=== PATIENT | male | born 1940 | race Caucasian/White ===

== ENCOUNTER 2017-12-09 08:45 | Day surgery (SDC) | payer MEDICARE ==
[2017-12-09 09:12] VITALS: RESP 20; TEMP 97.2
[2017-12-09 09:41] VITALS: BP 177/89; PULSE 66
--- NOTE | 2017-12-09 10:46 | US ---
EXAMINATION TYPE: US biopsy lymph node DATE OF EXAM: 12/09/2017 HISTORY: Right neck mass. FINDINGS: Maximal barrier technique was utilized. The skin overlying a suitable path to the patient' s mass was localized with ultrasound and the overlying skin prepped and draped. Ultrasound was utili zed with sterile technique. Lidocaine was used for local anesthesia. A skin tasia was made with a sc alpel. An 18-gauge needle was advanced under direct ultrasound guidance and core specimen obtained o f the mass. Specimen submitted in formalin to Pathology. Following the procedure, hemostasis achiev ed and the patient is discharged in stable condition without complication. IMPRESSION:STATUS POST ULTRASOUND GUIDED CORE BIOPSY OF right neck MASS, PATHOLOGY IS PENDING. THIS PROCEDURE IS PERFORMED BY THE UNDERSIGNED.
== END 2017-12-09 10:35 | disposition home or self-care (01) ==
LOC: RADPROMAIN 08:45
PROVIDERS: ATTEND Family Medicine
DX: C83.11 Mantle cell lymphoma, lymph nodes of head, face, and neck (principal); Z85.46 Personal history of malignant neoplasm of prostate; F17.210 Nicotine dependence, cigarettes, uncomplicated; Z92.3 Personal history of irradiation; I10 Essential (primary) hypertension; Z79.899 Other long term (current) drug therapy; Z82.49 Family history of ischemic heart disease and other diseases of the circulatory system
CPT/HCPCS: 38505; 76942; 88305; 88341; 88342

== ENCOUNTER 2019-03-26 20:40 | Inpatient (IN) | payer MEDICARE ==
--- NOTE | 2019-03-26 21:16 | XR ---
EXAMINATION TYPE: XR chest 1V portable DATE OF EXAM: 03/26/2019 COMPARISON: Today HISTORY: Short of breath TECHNIQUE: Single frontal view of the chest is obtained. FINDINGS: Heart size is normal. There is coarse interstitial density in the lungs. Thoracic aorta is atheromatous. There is no heart failure. Bony thorax is intact. There is right upper lobe chest tube in good position. No pneumothorax seen. IMPRESSION: COPD and pulmonary fibrosis. No change. No pneumothorax.
--- NOTE | 2019-03-26 21:17 | ED ---
General Adult HPI - General Chief complaint: Shortness of Breath Stated complaint: collapsed lung Time Seen by Provider: 03/26/19 20:44 Source: patient, family, EMS Mode of arrival: EMS Limitations: no limitations - History of Present Illness Initial comments: Dictation was produced using SetJam dictation software. please excuse any gr ammatical, word or spelling errors. Chief Complaint: 78-year-old male transferred from [facility] for pneumothorax. History of Present Illness: Patient was initially seen at [place] where he began having shortness of breath starting at 8 AM this morning. He also developed some chest pain. Upon initial arrival to [facility] emergency room he was found to be hypoxic. Placed on nonrebreather. X-ray was obtained showing large pneumothorax with concern for tension. Patient was given procedural sedation and chest tube was placed in the right chest. Patient has no complaints at this time. The ROS documented in this emergency department record has been reviewed and confirmed by me. Those systems with pertinent positive or negative responses have been documented in the HPI. All other systems are other negative and/or noncontributory. PHYSICAL EXAM: General Impression: Alert and oriented x3, not in acute distress HEENT: Normocephalic atraumatic, extra-ocular movements intact, pupils equal and reactive to light bilaterally, mucous membranes moist. Cardiovascular: Heart regular rate and rhythm, S1&S2 audible, no murmurs, rubs or gallops Chest: Lungs clear to auscultation bilaterally, no rhonchi, no wheeze, no rales Abdomen: Bowel sounds present, abdomen soft, non-tender, non-distended, no organomegaly Musculoskeletal: Pulses present and equal in all extremities, no peripheral edema Motor: no focal deficits noted Neurological: CN II-XII grossly intact, no focal motor or sensory deficits noted Skin: Intact with no visualized rashes Psych: Normal affect and mood Pleur-evac showed continuous leak. Tubing was assessed. There was a disconnection between the chest tube in the Pleur-evac tubing. ED course: 78-year-old male presents via transfer for pneumothorax. He had a chest tube thoracostomy performed at [place]. Vital signs upon arrival are within acceptable limits. Patient evaluated at bedside found to be stable medical condition. There appeared to be continuous leak to the Pleur-evac system. There was a disconnection between the chest tube and the Pleur-evac tubing. Equipment was changed for our [place] Pleur-evac. Rest of physical examination is benign. Chart reviewed from [place]. Patient to be admitted. Discussed patient case Dr. Miguel from [place] [facility] was went except admission.Chest x-ray at our facility was obtained showing right upper lobe chest tube in good position without any pneumothorax with good expansion of the lung. - Related Data Home Medications Medication Instructions Recorded Confirmed Lisinopril [Zestril] 20 mg PO BID 12/02/17 03/26/19 Ibrutinib [Imbruvica] 140 mg PO DAILY 03/26/19 03/26/19 amLODIPine [Norvasc] 5 mg PO DAILY 03/26/19 03/26/19 Allergies Allergy/AdvReac Type Severity Reaction Status Date / Time No Known Allergies Allergy Verified 03/26/19 21:20 Review of Systems ROS Statement: Those systems with pertinent positive or pertinent negative responses have been documented in the HPI. ROS Other: All systems not noted in ROS Statement are negative. 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 History of Any Multi-Drug Resistant Organisms: None Reported Past Surgical History: Hernia Repair Past Anesthesia/Blood Transfusion Reactions: No Reported Reaction Past Psychological History: No Psychological Hx Reported Smoking Status: Current every day smoker Past Alcohol Use History: Occasional Past Drug Use History: None Reported - Past Family History Mother Family Medical History: Cancer Additional Family Medical History / Comment(s): leukemia General Exam Limitations: no limitations Course Vital Signs 03/26/19 03/26/19 03/26/19 20:43 21:09 21:14 Temperature 97.8 F Pulse Rate 79 75 Respiratory 20 16 16 Rate Blood Pressure 159/88 153/83 O2 Sat by Pulse 100 99 Oximetry Disposition Clinical Impression: Pneumothorax Disposition: ADMITTED IP TO THIS HOSP Condition: Fair Referrals: Eleazar Gore DO [Primary Care Provider] - 1-2 days Decision Time: 21:24
[2019-03-26] MEDS ORDERED: NALOXONE 0.4 MG/ML 1 ML VIAL IV PRN (21:22)
[2019-03-26] MEDS ORDERED: ACETAMINOPHEN TAB 325 MG TAB PO PRN (21:22)
[2019-03-26] MEDS: SODIUM CHLORIDE 0.9% 1,000 ML IV SCH (21:29)
[2019-03-26] MEDS: MORPHINE SULFATE 4 MG/ML SYRINGE IV PRN (22:26)
--- NOTE | 2019-03-27 02:13 | P.HPIM ---
History of Present Illness H&P Date: 03/27/19 Patient is 78-year-old male with a PMH of hypertension, BPH, and active smoker who presented to the ED as a transfer from [place] for pneumothorax. The patient notes that he woke up earlier today at 8 AM and noticed some diffuse chest pain along with shortness of breath. The pain gradually worsened and he subsequently went to [place] ED at 3 PM, where he underwent an extensive evaluation and was found to have a large pneumothorax with concerns for tension pneumothorax on the chest x-ray. Chest tube was inserted and the patient was subsequently transferred to [place] ED. At time of interview, the patient notes that his chest pain and shortness of breath has resolved and he only has incisional pain at the site of the chest tube insertion. He further denied nausea, vomiting, fever, chills, headache, or dizziness earlier today or at time of the interview. The patient's chart from [place] was reviewed. EKG had revealed a normal sinus rhythm at 96 bpm. Laboratory evaluation had revealed a WBC count of 4, hemoglobin 12.9, platelets 129, troponin of 0.01, BNP 58, sodium 136, potassium 3.8, chloride 103, CO2 25, BUN 18, creatinine 1.0. CXR performed at this facility reviewed RUL chest tube in good position w/ no pneumothorax. Review of Systems Pertinent positives and negatives as discussed in HPI, a complete review of systems was performed and all other systems are negative. 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 History of Any Multi-Drug Resistant Organisms: None Reported Past Surgical History: Hernia Repair Past Anesthesia/Blood Transfusion Reactions: No Reported Reaction Past Psychological History: No Psychological Hx Reported Smoking Status: Current every day smoker Past Alcohol Use History: Occasional Past Drug Use History: None Reported - Past Family History Mother Family Medical History: Cancer Additional Family Medical History / Comment(s): leukemia Medications and Allergies Home Medications Medication Instructions Recorded Confirmed Type Lisinopril [Zestril] 20 mg PO BID 12/02/17 03/26/19 History Ibrutinib [Imbruvica] 140 mg PO DAILY 03/26/19 03/26/19 History amLODIPine [Norvasc] 5 mg PO DAILY 03/26/19 03/26/19 History Allergies Allergy/AdvReac Type Severity Reaction Status Date / Time No Known Allergies Allergy Verified 03/26/19 21:20 Physical Exam Vitals: Vital Signs Temp Pulse Pulse Resp BP BP Pulse Ox 03/26/19 22:16 97.3 F L 77 16 165/83 99 03/26/19 21:14 16 03/26/19 21:09 75 16 153/83 99 03/26/19 20:43 97.8 F 79 20 159/88 100 Intake and Output 03/26/19 03/26/19 03/27/19 14:59 22:59 06:59 Other: Weight 70.307 kg General: non toxic, no distress, appears at stated age, normal weight Derm: no unusual rashes/lesions no unusual ecchymoses, warm, dry Head: atraumatic, normocephalic, symmetric Eyes: EOMI, no lid lag, anicteric sclera, pupils equal round reactive to light ENT: Nose and ears atraumatic, no thrush, no pharyngeal erythema Neck: No thyromegaly, no cervical lymphadenopathy, trachea midline, supple Mouth: no lip lesion, mucus membranes moist Cardiovascular: S1S2 reg, no murmur, positive posterior tibial pulse bilateral, no edema, capillary refill less than 2 seconds Lungs: CTA bilateral, right sided chest tube in place, connected to pleur-evac, no rhonchi, no rales , no accessory muscle use Abdominal: soft, nontender to palpation, no guarding, no appreciable or ganomegaly, normal bowel sounds Ext: no gross muscle atrophy, muscle strength 5 out of 5 in all 4 extremities grossly, no contractures, Neuro: CN II-XI grossly intact, light touch intact all 4 extremities, finger to nose within normal limits, Psych: Alert, oriented, appropriate affect Assessment and Plan Plan: Right pneumothorax status post chest tube insertion, in setting of likely undiagnosed COPD -Repeat x-ray showing good expansion of the lung without pneumothorax -Continue with chest tube -Surgery consulted Chronic conditions: Hypertension, BPH -Continue with home meds DVT prophylaxis -Lovenox The patient is admitted with an anticipated more than 2 midnight stay for evaluation of pneumothorax. CODE STATUS:Full Code Discussed with: Patient, Family Anticipated discharge date: 03/29/[address]: Home A total of 35 minutes was spent on the care of this complex patient more than 50% of the time was spent in counseling and care coordination.
[2019-03-27 05:18] VITALS: BMI 22.2
[2019-03-27] MEDS: MORPHINE SULFATE 4 MG/ML SYRINGE IV PRN (07:15)
[2019-03-27] MEDS: ENOXAPARIN 40 MG/0.4 ML SYRINGE SQ SCH (08:35)
[2019-03-27] MEDS: LISINOPRIL 20 MG TAB PO SCH ×2 (08:35→20:31)
[2019-03-27] MEDS: amLODIPine 5 MG TAB PO SCH (08:35)
[2019-03-27] MEDS: Ibrutinib [Imbruvica] 140 MG PO SCH (08:36)
--- NOTE | 2019-03-27 12:05 | P.GSCN ---
History of Present Illness Consult date: 03/27/19 Reason for Consult: pneumothorax Requesting physician: Richie Singh History of present illness: This is a 78-year-old gentleman who follows on an outpatient basis with Dr. Eleazar Gore. He has a previous medical history of prostate cancer diagnosed in 2017 status post radiation, mantle cell lymphoma diagnosed in 2018 still actively receiving oral chemotherapy, hypertension, current tobacco dependence with 1 pack per day for 61 years with attempts to quit, and family history of cancer. Yesterday morning he began experiencing significant shortness of breath, throughout the day he also developed chest pain and presented to [place] emergency room for evaluation and treatment. His oxygen saturation was 70% and he was placed on a nonrebreather with some improvement in his symptoms. Chest x-ray was completed demonstrating a large right-sided pneumothorax with tension. A right pleural chest tube was placed by the emergency room physicians, follow-up x-ray demonstrated complete re-expansion of the lung, and the patient was transferred to [facility] for further evaluation and treatment. He denies any previous incidence of pneumothorax. He was admitted for further evaluation with consultation placed to Dr. Razo for management. 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 History of Any Multi-Drug Resistant Organisms: None Reported Past Surgical History: Hernia Repair Past Anesthesia/Blood Transfusion Reactions: No Reported Reaction Past Psychological History: No Psychological Hx Reported Smoking Status: Current every day smoker Past Alcohol Use History: Occasional Past Drug Use History: None Reported - Past Family History Mother Family Medical History: Cancer Additional Family Medical History / Comment(s): leukemia Medications and Allergies Home Medications Medication Instructions Recorded Confirmed Type Lisinopril [Zestril] 20 mg PO BID 12/02/17 03/26/19 History Ibrutinib [Imbruvica] 140 mg PO DAILY 03/26/19 03/26/19 History amLODIPine [Norvasc] 5 mg PO DAILY 03/26/19 03/26/19 History Allergies Allergy/AdvReac Type Severity Reaction Status Date / Time No Known Allergies Allergy Verified 03/26/19 21:20 Surgical - Exam Vital Signs Temp Pulse Resp BP Pulse Ox 97.8 F 79 20 159/88 100 03/26/19 20:43 03/26/19 20:43 03/26/19 20:43 03/26/19 20:43 03/26/19 20:43 - General well developed, well nourished, no distress, no pain - Eyes PERRL, normal ocular movement - ENT no hearing loss - Neck no masses, no bruits, trachea midline - Respiratory lungs sounds diminished bilaterally. Respirations even, nonlabored. Currently on 4 L nasal cannula with oxygen saturation 99%. Right pleural chest tube to continuous wall suction, no drainage present, no air leak present. - Cardiovascular S1, S2 present. Regular rate and rhythm. EKG shows sinus rhythm without ischemic changes. Palpable peripheral pulses bilaterally. No edema present. No calf pain or tenderness noted. - Abdomen Abdomen: soft, non tender, bowel sounds - Genitourinary deferred - Rectum deferred - Integumentary skin is warm and dry with evidence of good perfusion. - Neurologic normal coordination, normal sensation - Musculoskeletal normal posture - Psychiatric oriented to time, oriented to person, oriented to place, speech is normal, memory intact Results - Imaging Chest x-ray: report reviewed, image reviewed Assessment and Plan Assessment: 1. Spontaneous pneumothorax, first incidence 2. Mantle cell lymphoma diagnosed in 2018, still receiving oral chemotherapy 3. History of prostate cancer diagnosed in 2017 status post radiation 4. Hypertension 5. Current tobacco dependence 6. Family history of cancer Plan: The patient was seen and examined at the bedside. Chart/diagnostics were reviewed. The case was discussed this morning with Dr. Camilo. At this time we will maintain pleural chest tube to continuous wall suction, likely will remove from suction later this afternoon versus tomorrow morning. Once off suction for 24 hours with no recurrence of pneumothorax will discontinue pleural chest tube. Patient's risk for repeat pneumothorax discussed in detail with the patient , as well as surgical intervention possibility if pneumothorax recurs. Patient was counseled to quit smoking as tobacco dependence is a significant risk factor for pneumothorax. Incentive spirometry was ordered and should be encouraged. Continue medical management per primary care service. Thank you for this consult. We look forward to working with you in the care of your patient. Time with Patient: Greater than 30
[2019-03-28] MEDS: SODIUM CHLORIDE 0.9% 1,000 ML IV SCH (03:48)
--- NOTE | 2019-03-28 07:26 | XR ---
EXAMINATION TYPE: XR chest 2V DATE OF EXAM: 03/28/2019 COMPARISON: Chest x-ray from 2 days ago. HISTORY: Pneumothorax with right-sided chest tube. TECHNIQUE: Frontal and lateral views of the chest are obtained. FINDINGS: There is stable appearing right apical chest tube without measurable pneumothorax.. There are small to tiny bilateral pleural effusions on current study. No mediastinal shift. Cardiac silhoue tte size is stable and within normal limits with atherosclerotic thoracic aorta. Osseous structures a re intact. Background underlying chronic emphysematous change felt present. IMPRESSION: No measurable pneumothorax with right apical chest tube in place. Small to tiny bilatera l pleural effusions are present on current study. No new infiltrate is noted.
[2019-03-28] MEDS: Ibrutinib [Imbruvica] 140 MG PO SCH (07:34)
[2019-03-28] MEDS: ENOXAPARIN 40 MG/0.4 ML SYRINGE SQ SCH (07:34)
[2019-03-28] MEDS: LISINOPRIL 20 MG TAB PO SCH (07:34)
[2019-03-28] MEDS: amLODIPine 5 MG TAB PO SCH (07:34)
--- NOTE | 2019-03-28 09:51 | P.PN ---
Subjective Progress Note Date: 03/28/19 Principal diagnosis: Right sided spontaneous pneumothorax, first incidence. Previous medical history of prostate cancer status post radiation, mantle cell lymphoma with active oral chemotherapy, hypertension, current tobacco dependence, and family history of cancer. POD #2 placement of right pleural chest tube by the emergency room physicians at [facility] The patient is currently sitting up in bed in no acute distress. Denies pain or shortness of breath. Right pleural chest tube was placed to waterseal yesterday, no air leak is present, and chest x-ray this morning shows reexpansion of the lung. The patient has been ambulating to and from the bathroom. No new concerns. Objective - Vital Signs Vital signs: Vital Signs Temp 97.7 F 03/28/19 05:00 Pulse 70 03/28/19 05:00 Resp 20 03/28/19 05:00 BP 138/75 03/28/19 05:00 Pulse Ox 98 03/28/19 05:00 Intake & Output 03/27/19 03/28/19 03/28/19 18:59 06:59 18:59 Intake Total 240 70 Output Total 400 10 400 Balance -160 60 -400 Intake: Intake, IV Titration 70 Amount Sodium Chloride 0.9% 1, 70 000 ml @ 20 mls/hr IV . Q24H [facility] Rx#:[id number] Oral 240 Output: Chest Tube Drainage 10 Chest Tube Right Lateral 10 Chest Urine 400 400 Other: Voiding Method Toilet Toilet # Voids 3 1 1 - Constitutional General appearance: Present: cooperative, no acute distress - Respiratory Details: Lungs sounds diminished bilaterally. Respirations even, nonlabored. Currently on room air with oxygen saturation 95%. Able to achieve 1250 mL on his incentive spirometry. Right pleural chest tube to waterseal, no drainage present, no air leak present. - Cardiovascular Details: S1, S2 present. Regular rate and rhythm. Palpable peripheral pulses bilaterally. No edema present. No calf pain or tenderness noted. - Gastrointestinal Gastrointestinal Comment(s): Abdomen soft, nontender, nondistended. Active bowel sounds 4 quadrants. Tolerating diet. - Genitourinary Genitourinary Comment(s): Continues to void. - Integumentary Integumentary Comment(s): Skin is warm and dry with evidence of good perfusion. - Neurologic Neurologic: Present: CNII-XII intact - Musculoskeletal Musculoskeletal: Present: gait normal, strength equal bilaterally - Psychiatric Psychiatric: Present: A&O x's 3, appropriate affect, intact judgment & insight - Allied health notes Allied health notes reviewed: nursing - Imaging and Cardiology Chest x-ray: report reviewed, image reviewed Assessment and Plan Assessment: 1. Right-sided spontaneous pneumothorax, first incidence, status post right pleural chest tube placement by the emergency room physicians at [facility] 2. Mantle cell lymphoma diagnosed in 2018, still receiving oral chemotherapy 3. History of prostate cancer diagnosed in 2017 status post radiation 4. Hypertension 5. Current tobacco dependence 6. Family history of cancer Plan: 1. Right pleural chest tube was discontinued without incident. Patient tolerated well. Chest x-ray to be obtained in 2 hours. 2. If repeat chest x-ray is stable patient may be discharged home from our standpoint. Dressing should remain in place for 48 hours then patient may remove and shower daily. Discharge instructions were placed on the discharge plan as well as our contact information. 3. Recommended pain control with Tylenol alternating with Motrin. No narcotics necessary. 4. Patient instructed to continue using incentive spirometry. 5. Reinforced the need to quit smoking. Also discussed with his . 6. Please call us with any further questions. Time with Patient: Greater than 30
--- NOTE | 2019-03-28 12:38 | XR ---
EXAMINATION TYPE: XR chest 2V DATE OF EXAM: 03/28/2019 COMPARISON: Chest x-ray earlier today. HISTORY: Status post right-sided chest tube removal. TECHNIQUE: Frontal and lateral views of the chest are obtained. FINDINGS: There is persistent small to tiny right pleural effusion. No evidence of right-sided pneum othorax status post chest tube removal. Background chronic emphysematous change redemonstrated. The c ardiac silhouette size remains within normal limits with atherosclerotic thoracic aorta. The osseou s structures are intact. IMPRESSION: No significant pneumothorax after right-sided chest tube removal.
[2019-03-28 13:10] VITALS: BP 135/68; PULSE 54; RESP 18; TEMP 97.8
--- NOTE | 2019-03-28 17:06 | P.DS ---
Providers Date of admission: 03/26/19 21:23 Expected date of discharge: 03/28/19 Attending physician: Lisa Higgins MD Consults: 03/26/19 21:23 Consult Physician Routine Consulting Provider: Roldan Razo Consult Reason/Comments: pneumothorax Do you want consulting provider notified?: Yes Hospital Course: 78-year-old male with a PMH of hypertension, BPH, and active smoker who presented to the ED as a transfer from [place] for pneumothorax. When he woke up he noticed some diffuse chest pain along with shortness of breath. The pain gradually worsened and he subsequently went to [place] ED at 3 PM, where he underwent an extensive evaluation and was found to have a large pneumothorax with concerns for tension pneumothorax on the chest x-ray. Chest tube was inserted and the patient was subsequently transferred to [place] ED. When he arrived his chest pain and shortness of breath resolved and he only had incisional pain at the site of the chest tube insertion. He denied nausea, vomi ting, fever, chills, headache, or dizziness. EKG had revealed a normal sinus rhythm at 96 bpm. Laboratory evaluation had revealed a WBC count of 4, hemoglobin 12.9, platelets 129, troponin of 0.01, BNP 58, sodium 136, potassium 3.8, chloride 103, CO2 25, BUN 18, creatinine 1.0. CXR performed at this facility reviewed RUL chest tube in good position w/ no pneumothorax. Patient was evaluated and followed by cardiothoracic surgery. The pneumothorax was thought to be primarily secondary to smoking possibly emphysema. Patient was advised to quit smoking. He verbalized understanding. Today the chest tube was discontinued after remaining in place for approximately 2 days, follow-up chest x-ray did not reveal pneumothorax. Patient be discharged home in a stable condition. Time for discharge 35min Patient Condition at Discharge: Fair Plan - Discharge Summary New Discharge Prescriptions: Continue Lisinopril [Zestril] 20 mg PO BID amLODIPine [Norvasc] 5 mg PO DAILY Ibrutinib [Imbruvica] 140 mg PO DAILY Discharge Medication List Lisinopril [Zestril] 20 mg PO BID 12/02/17 [History] Ibrutinib [Imbruvica] 140 mg PO DAILY 03/26/19 [History] amLODIPine [Norvasc] 5 mg PO DAILY 03/26/19 [History] Follow up Appointment(s)/Referral(s): Maia Oliveros, NPC [Nurse Practitioner] - As Needed (may come in to office for suture removal 7-14 days if no one is able to remove at [place]) Rakan Gore MD [REFERRING] - 03/30/19 4:00 pm Patient Instructions/Handouts: Spontaneous Pneumothorax (DC) Activity/Diet/Wound Care/Special Instructions: Chest tube site: Keep covered for 48 hours ( morning). If dressing becomes saturated, reinforce until then. After 48 hours you may remove dressing and shower daily. If any drainage from site you may cover with dressing, otherwise leave open to air. Return to [place] for suture removal of sutures after 7-14 days. If unable to have sutures removed at [place], may return to cardiothoracic surgery office for removal. Any fever greater than 101F or infected looking drainage from the site should be reported to the cardiothoracic surgery office. May alternate ibuprofen and acetaminophen for pain. Any questions please call Maia Oliveros NP @ Discharge Disposition: HOME SELF-CARE
== END 2019-03-28 13:45 | disposition home or self-care (01) | DRG 200 ==
LOC: EC 20:40 → 3NMEDONC 21:23
PROVIDERS: ADMIT Internal Medicine; ATTEND Internal Medicine
DX: J93.83 Other pneumothorax (principal); C83.10 Mantle cell lymphoma, unspecified site; J43.9 Emphysema, unspecified; N40.0 Benign prostatic hyperplasia without lower urinary tract symptoms; I10 Essential (primary) hypertension; F17.200 Nicotine dependence, unspecified, uncomplicated; M19.90 Unspecified osteoarthritis, unspecified site; Z79.899 Other long term (current) drug therapy; Z80.6 Family history of leukemia; Z92.3 Personal history of irradiation; Z85.46 Personal history of malignant neoplasm of prostate; Z98.890 Other specified postprocedural states
CPT/HCPCS: 71045; 71046; 99285

== ENCOUNTER 2020-04-04 21:37 | Inpatient (IN) | payer MEDICARE ==
--- NOTE | 2020-04-04 21:54 | ED ---
General Adult HPI - General Chief complaint: Recheck/Abnormal Lab/Rx Stated complaint: Spontaneous pneumothorax Time Seen by Provider: 04/04/20 21:44 Source: patient, EMS, RN notes reviewed Mode of arrival: EMS Limitations: no limitations - History of Present Illness Initial comments: Dictation was produced using [employer] dictation software. please excuse any grammatical, word or spelling errors. This patient was cared for during a federal and state declared state of emergency secondary to Covid 19 Chief Complaint: 79-year-old male transferred from [place] for spontaneous pneumothorax. History of Present Illness: 79-year-old male he has had multiple pneumothoraces in the past. Patient states that he went to the emergency department [place] for acute onset shortness of breath. He was evaluated there is found to have right-sided pneumothorax. Patient had chest tube placed. Symptoms improved dramatically after the chest tube was placed. He was sent here for further care. One year ago patient had a similar presentation where he had a spontaneous pneumothorax and required chest tube thoracostomy. He was sent here to emergency department where he was seen by cardiothoracic surgery. The ROS documented in this emergency department record has been reviewed and confirmed by me. Those systems with pertinent positive or negative responses have been documented in the HPI. All other systems are other negative and/or noncontributory. PHYSICAL EXAM: General Impression: Alert and oriented x3, not in acute distress HEENT: Normocephalic atraumatic, extra-ocular movements intact, pupils equal and reactive to light bilaterally, mucous membranes moist. Cardiovascular: Heart regular rate and rhythm Chest: Able to complete full sentences, no retractions, no tachypnea, bilateral breath sounds, chest tube in place with clear dry and intact dressing Pleur-evac: No obvious leak Abdomen: abdomen soft, non-tender, non-distended, no organomegaly Musculoskeletal: Pulses present and equal in all extremities, no peripheral edema Motor: no focal deficits noted Neurological: CN II-XII grossly intact, no focal motor or sensory deficits noted Skin: Intact with no visualized rashes Psych: Normal affect and mood ED course: 79-year-old male past medical history of record pneumothoraces presents with right-sided spontaneous pneumothorax. Vital signs upon arrival are within acceptable limits. Patient's well-appearing. Chest tube appears to be in good working condition. Discussed patient case with Dr. Higgins who is one except patient's care. Cardiothoracic surgery will be consulted again. X-ray was performed here in our emergency room for reconfirmation of chest tube placement. Chest appears to be in place. There is good aeration of the lung with residual pneumothorax. Patient placed wall suction. he'll be admitted. - Related Data Home Medications Medication Instructions Recorded Confirmed lisinopriL [Zestril] 20 mg PO BID 12/02/17 03/26/19 Ibrutinib [Imbruvica] 140 mg PO DAILY 03/26/19 03/26/19 amLODIPine [Norvasc] 5 mg PO DAILY 03/26/19 03/26/19 Allergies Allergy/AdvReac Type Severity Reaction Status Date / Time No Known Allergies Allergy Verified 04/04/20 21:49 Review of Systems ROS Statement: Those systems with pertinent positive or pertinent negative responses have been documented in the HPI. ROS Other: All systems not noted in ROS Statement are negative. 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 History of Any Multi-Drug Resistant Organisms: None Reported Past Surgical History: Hernia Repair Past Anesthesia/Blood Transfusion Reactions: No Reported Reaction Past Psychological History: No Psychological Hx Reported Smoking Status: Former smoker Past Alcohol Use History: Occasional Past Drug Use History: None Reported - Past Family History Mother Family Medical History: Cancer Additional Family Medical History / Comment(s): leukemia General Exam Limitations: no limitations Course Vital Signs 04/04/20 21:44 Temperature 98.1 F Pulse Rate 72 Respiratory 18 Rate Blood Pressure 152/99 O2 Sat by Pulse 98 Oximetry Disposition Clinical Impression: Pneumothorax Disposition: ADMITTED IP TO THIS HOSP Condition: Fair Referrals: Rakan Gore MD [Primary Care Provider] - 1-2 days Decision Time: 22:04
--- NOTE | 2020-04-04 22:09 | XR ---
EXAMINATION TYPE: XR chest 1V portable DATE OF EXAM: 04/04/2020 COMPARISON: 03/28/2019 HISTORY: Chest tube placement TECHNIQUE: FINDINGS: There is a right-sided chest tube with the tip over the medial aspect right upper lobe. The re is a small right-sided pneumothorax of approximately 15%. This is seen along the right lateral gt st wall and right lung apex. There is no heart failure. Heart size is normal. Thoracic aorta is ather omatous. There is minimal atelectasis right lung base. There are no hilar masses. IMPRESSION: Small right-sided pneumothorax appears new compared to old exam. No evidence of tension.
[2020-04-04] MEDS ORDERED: IPRATROPIUM-ALBUTEROL 3 ML NEB INHALATION PRN (23:19)
--- NOTE | 2020-04-05 01:07 | P.HPIM ---
History of Present Illness H&P Date: 04/04/20 The patient is a 79-year-old male with a PMH of tobacco abuse, hypertension, and BPH who was sent to the emergency room as a transfer from [place] where he had presented earlier today with complaints of sudden onset of right-sided chest pain and shortness of breath. The patient reports that he was in his usual state of health until around 4 PM when he suddenly developed sharp and pleuritic right-sided chest pain with associated shortness of breath. He reports sitting on a couch watching television at the time. He meet activated EMS who took him to [facility] where a chest x-ray revealed a large right-sided pneumothorax with mild mediastinal shift to the left. Right-sided chest tube was inserted with a repeat chest x-ray showing minor residual pneumothorax and no mediastinal shift. Laboratory evaluation had revealed a WBC count of 3.5, hemoglobin 11.3, platelets 206, sodium 133, potassium 3.9, chloride 103, CO2 27, BUN 12, creatinine 1.3, and glucose 127. The patient was transferred to [place] emergency room and is being admitted to the medicine service for further management of spontaneous pneumothorax. At time of interview, he reported minimal right-sided pleuritic chest discomfort, significantly improved immediately after chest tube placement. Denied shortness of breath, nausea, vomiting, fever, chills, or cough. Denied abdominal pain. Review of Systems Pertinent positives and negatives as discussed in HPI, a complete review of systems was performed and all other systems are negative. 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 History of Any Multi-Drug Resistant Organisms: None Reported Past Surgical History: Hernia Repair Past Anesthesia/Blood Transfusion Reactions: No Reported Reaction Past Psychological History: No Psychological Hx Reported Smoking Status: Former smoker Past Alcohol Use History: Occasional Past Drug Use History: None Reported - Past Family History Mother Family Medical History: Cancer Additional Family Medical History / Comment(s): leukemia Medications and Allergies Home Medications Medication Instructions Recorded Confirmed Type lisinopriL [Zestril] 20 mg PO BID 12/02/17 04/04/20 History Allergies Allergy/AdvReac Type Severity Reaction Status Date / Time No Known Allergies Allergy Verified 04/04/20 22:57 Physical Exam Vitals: Vital Signs Temp Pulse Resp BP Pulse Ox 04/04/20 23:45 74 18 138/83 99 04/04/20 22:49 20 04/04/20 21:44 98.1 F 72 18 152/99 98 Intake and Output 04/04/20 04/04/20 04/05/20 14:59 22:59 06:59 Other: Weight 68.492 kg General: non toxic, no distress, appears at stated age, normal weight Derm: no unusual rashes/lesions no unusual ecchymoses, warm, dry Head: atraumatic, normocephalic, symmetric Eyes: EOMI, no lid lag, anicteric sclera, pupils equal round reactive to light ENT: Nose and ears atraumatic, no thrush, no pharyngeal erythema Neck: No thyromegaly, no cervical lymphadenopathy, trachea midline, supple Mouth: no lip lesion, mucus membranes moist Cardiovascular: S1S2 reg, no murmur, positive posterior tibial pulse bilateral, no edema, capillary refill less than 2 seconds Lungs: CTA bilateral, no rhonchi, no rales , no accessory muscle use, right- sided chest wall and place attached to waterseal Abdominal: soft, nontender to palpation, no guarding, no appreciable organomegaly, normal bowel sounds Ext: no gross muscle atrophy, muscle strength 5 out of 5 in all 4 extremities grossly, no contractures, Neuro: CN II-XI grossly intact, light touch intact all 4 extremities, finger to nose within normal limits, Psych: Alert, oriented, appropriate affect Assessment and Plan Plan: Spontaneous right-sided thorax -Surgery consulted -Chest x-ray at [place] revealed re-expansion of lung -Continue with chest tube Hypertension -Continue with home med lisinopril Tobacco abuse -Advised on the importance of cessation Elevated creatinine -Monitor BMP DVT prophylaxis -Heparin subq The patient is admitted with an anticipated greater than 2 midnight stay for evaluation of spontaneous pneumothorax CODE STATUS: Full Code Discussed with: Patient Anticipated discharge date: 04/[address]: Home A total of 40 minutes was spent on the care of this complex patient more than 50% of the time was spent in counseling and care coordination.
[2020-04-05 07:10] LABS: HCT 30.5 % (39.0-53.0); MCH 31.2 pg (25.0-35.0); MCHC 32.7 g/dL (31.0-37.0); MCV 95.5 fL (80.0-100.0); Mean Platelet Volume 8.2; Platelet Count 135 k/uL (150-450); RBC 3.19 m/uL (4.30-5.90); RDW 14.4 % (11.5-15.5); WBC 3.6 k/uL (3.8-10.6)
[2020-04-05 07:23] LABS: African American GFR (CKD) >90 (>60 ml/min/1.73 sqM); Anion Gap 6 mmol/L; Blood Urea Nitrogen 14 mg/dL (9-20); Calcium 8.8 mg/dL (8.4-10.2); Carbon Dioxide 26 mmol/L (22-30); Chloride 103 mmol/L (98-107); Glucose 107 mg/dL (74-99); Non-African American GFR(CKD) 79 (>60 ml/min/1.73 sqM); Sodium 135 mmol/L (137-145)
--- NOTE | 2020-04-05 08:26 | XR ---
EXAMINATION TYPE: XR chest 1V portable DATE OF EXAM: 04/05/2020 HISTORY: Follow-up pneumothorax COMPARISON: 04/04/2020 TECHNIQUE: Single view of the chest is submitted. FINDINGS: Right-sided chest tube is unchanged in position. Right apical pneumothorax persists and appears sligh tly smaller in size and is estimated at approximately 10%. The heart is stable. Hilar and mediastinal structures are within normal limits. Degenerative changes are seen of the dorsal spine. IMPRESSION: 1. Right-sided chest tube is unchanged in position. Right apical pneumothorax persists and appears s lightly smaller in size and is estimated at approximately 10%.
[2020-04-05] MEDS ORDERED: RX INFO: IV CONTRAST WAS GIVEN 1 EACH MISC MISCELLANE PRN (08:50)
[2020-04-05] MEDS: HYDROcodone/APAP 5-325MG 1 EACH TAB PO PRN ×3 (09:14→20:22)
[2020-04-05] MEDS: lisinopriL 20 MG TAB PO SCH ×2 (09:16→20:24)
[2020-04-05] MEDS: HEPARIN SODIUM,PORCINE 5,000 UNIT/ML 1 ML VIAL SQ SCH ×2 (09:17→15:40)
--- NOTE | 2020-04-05 10:33 | P.PN ---
Subjective Progress Note Date: 04/05/20 Patient is doing fairly well today. He is complaining of soreness at the site of the chest tube. Repeat chest x-ray showed residual pneumothorax. Objective - Vital Signs Vital signs: Vital Signs Temp 98 F 04/05/20 04:12 Pulse 70 04/05/20 04:12 Resp 18 04/05/20 04:12 BP 122/74 04/05/20 04:12 Pulse Ox 98 04/05/20 04:12 Intake & Output 04/04/20 04/05/20 04/05/20 18:59 06:59 18:59 Intake Total 0 Output Total 0 Balance 0 Weight 68.492 kg Intake: Oral 0 Output: Chest Tube Drainage 0 Right Mid-Axillary Chest 0 Other: Voiding Method Toilet # Bowel Movements 0 # Emeses 0 - Exam General: The patient is awake and alert, in no distress Eye: there is normal conjunctiva bilaterally. Neck: The neck is supple, there is no JVD. Cardiovascular: Normal S1-S2, no S3-S4, no murmurs. Respiratory: Lungs clear to auscultation bilaterally Gastrointestinal: Abdomen is soft, nontender Musculoskeletal: There is no pedal edema. Neurological:. Speech is normal. Skin: Skin is warm and dry - Labs CBC & Chem 7: 04/05/20 06:40 04/05/20 06:40 Labs: Abnormal Lab Results - Last 24 Hours (Table) 04/05/20 04/05/20 Range/Units 06:40 06:40 WBC 3.6 L (3.8-10.6) k/uL RBC 3.19 L (4.30-5.90) m/uL Hgb 10.0 L (13.0-17.5) gm/dL Hct 30.5 L (39.0-53.0) % Plt Count 135 L (150-450) k/uL Sodium 135 L (137-145) mmol/L Glucose 107 H (74-99) mg/dL Assessment and Plan Assessment: This is a 79-year-old male with past medical history noted below who presented to the emergency room with worsening right-sided chest pain and shortness of breath. Patient was evaluated at [place] [facility] and transferred to our hospital for admission for further management of his medical problems noted below. Spontaneous right-sided thorax, third episode since last year. -Status post chest tube insertion -Thoracic surgery consulted and following closely, appreciate recommendations Hypertension -Continue with home med lisinopril Tobacco abuse -Counseled on the importance of cessation during this admission Elevated creatinine -Monitor BMP DVT prophylaxis -Heparin subq Abnormal for pain control.
--- NOTE | 2020-04-05 11:00 | CT ---
EXAMINATION TYPE: CT chest w con DATE OF EXAM: 04/05/2020 COMPARISON: None HISTORY: Assess for blebs CT DLP: 221.5 mGycm, Automated exposure control for dose reduction was used. CONTRAST: Performed injected with 100 mL of Isovue 300. TECHNIQUE: Axial images were obtained at 5 mm thick sections. Reconstructed images are reviewed on [employer] computer in the coronal plane. FINDINGS: Portion of the thyroid visualized is normal. No suspicious lung nodules or focal infiltrates are present. Moderately large apical blebs appear to be present especially at the right apex. Tiny right apical pn eumothorax is also present. Multiple emphysematous bulla are present throughout the lung bliss. Ther e is a small right-sided pneumothorax present. Chest tube is at the anterior right lung base. Small r ight pleural fluid collection is present. Some compressive atelectasis is likely at the right lung ba se. No enlarged mediastinal or hilar adenopathy is evident. The ascending aorta diameter at the level o f the main pulmonary artery is 3.3 cm. The main pulmonary artery diameter at the bifurcation is 2.[address] sections are obtained through the upper abdomen. Abdomen is essentially unremarkable. IMPRESSIONS: 1. Tiny right pneumothorax. Chest tube is at the right anterior lung base. 2. Emphysematous changes present bilaterally. Multiple blebs are present.
--- NOTE | 2020-04-05 12:05 | P.GSCN ---
<Maia Oliveros - Last Filed: 04/05/20 12:04> History of Present Illness Consult date: 04/05/20 Reason for Consult: Recurrent right-sided pneumothorax Requesting physician: Richie Singh History of present illness: This is a 79-year-old gentleman who follows on an outpatient basis with Dr. Eleazar Gore. 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 We saw this gentleman a year ago upon presentation from [place] emergency room for shortness of breath with subsequent right-sided pneumothorax with tension. Right thoracostomy tube was placed at that time. The emergency room physicians, follow chest x-ray demonstrated complete reexpansion of the lung, and chest tube was removed 2 days later. Patient was discharged home with plans for possible surgical intervention in the future should his pneumothorax recur. Yesterday he presented to [facility] again with complaints of shortness of breath. Chest x-ray was completed demonstrating recurrence of her right-sided pneumothorax and a chest tube was placed by the emergency room physicians. He was transferred to [facility] for further evaluation and treatment by cardiothoracic surgery. The patient does state this is his third pneumothorax. 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 , mantle cell lymphoma diagnosed in 2017 on active chemotherapy; right-sided spontaneous pneumothorax in March 2019 as well as September 2019 History of Any Multi-Drug Resistant Organisms: None Reported Past Surgical History: Hernia Repair Past Anesthesia/Blood Transfusion Reactions: No Reported Reaction Past Psychological History: No Psychological Hx Reported Smoking Status: Former smoker Past Alcohol Use History: Occasional Past Drug Use History: None Reported - Past Family History Mother Family Medical History: Cancer Additional Family Medical History / Comment(s): leukemia Medications and Allergies Home Medications Medication Instructions Recorded Confirmed Type lisinopriL [Zestril] 20 mg PO BID 12/02/17 04/04/20 History Allergies Allergy/AdvReac Type Severity Reaction Status Date / Time No Known Allergies Allergy Verified 04/04/20 22:57 Surgical - Exam Vital Signs Temp Pulse Resp BP Pulse Ox 98.1 F 72 18 152/99 98 04/04/20 21:44 04/04/20 21:44 04/04/20 21:44 04/04/20 21:44 04/04/20 21:44 - General well developed, well nourished, no distress, no pain - Eyes normal ocular movement - ENT no hearing loss - Neck no masses, no bruits, trachea midline - Respiratory Lungs sounds diminished bilaterally. Respirations even, nonlabored. Currently on 2 L nasal cannula with oxygen saturation 98%. Right-sided pleural chest tube present to continuous wall suction, no drainage present, positive continuous air leak present - Cardiovascular S1, S2 present. Regular rate and rhythm. Palpable peripheral pulses bilaterally. No edema present. No calf pain or tenderness noted. - Abdomen Abdomen: soft, non tender, bowel sounds - Genitourinary Deferred - Rectum Deferred - Integumentary no rash, no growths - Neurologic normal coordination, normal sensation - Musculoskeletal normal posture - Psychiatric oriented to time, oriented to person, oriented to place, speech is normal, m little rock intact Results - Labs 04/05/20 06:40 04/05/20 06:40 Abnormal Lab Results - Last 24 Hours (Table) 04/05/20 04/05/20 Range/Units 06:40 06:40 WBC 3.6 L (3.8-10.6) k/uL RBC 3.19 L (4.30-5.90) m/uL Hgb 10.0 L (13.0-17.5) gm/dL Hct 30.5 L (39.0-53.0) % Plt Count 135 L (150-450) k/uL Sodium 135 L (137-145) mmol/L Glucose 107 H (74-99) mg/dL Diabetes panel 04/05/20 Range/Units 06:40 Sodium 135 L (137-145) mmol/L Potassium 4.0 (3.5-5.1) mmol/L Chloride 103 (98-107) mmol/L Carbon Dioxide 26 (22-30) mmol/L BUN 14 (9-20) mg/dL Creatinine 0.93 (0.66-1.25) mg/dL Glucose 107 H (74-99) mg/dL Calcium 8.8 (8.4-10.2) mg/dL Calcium panel 04/05/20 Range/Units 06:40 Calcium 8.8 (8.4-10.2) mg/dL Pituitary panel 04/05/20 Range/Units 06:40 Sodium 135 L (137-145) mmol/L Potassium 4.0 (3.5-5.1) mmol/L Chloride 103 (98-107) mmol/L Carbon Dioxide 26 (22-30) mmol/L BUN 14 (9-20) mg/dL Creatinine 0.93 (0.66-1.25) mg/dL Glucose 107 H (74-99) mg/dL Calcium 8.8 (8.4-10.2) mg/dL Adrenal panel 04/05/20 Range/Units 06:40 Sodium 135 L (137-145) mmol/L Potassium 4.0 (3.5-5.1) mmol/L Chloride 103 (98-107) mmol/L Carbon Dioxide 26 (22-30) mmol/L BUN 14 (9-20) mg/dL Creatinine 0.93 (0.66-1.25) mg/dL Glucose 107 H (74-99) mg/dL Calcium 8.8 (8.4-10.2) mg/dL - Imaging Chest x-ray: report reviewed, image reviewed Assessment and Plan Assessment: 1. Recurrent right-sided spontaneous pneumothorax 2. History of prostate cancer diagnosed in 2017 status post radiation 3. 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 Hypertension 5. Previous tobacco dependence, quit March 2019 6. Family history of cancer Plan: The patient was seen and examined at the bedside with Dr. Rodney. Chart/diagnostics were reviewed. We will send the patient for computed tomography scan of the chest today to evaluate for blebs. Chest tube is still actively leaking. Slight apical pneumothorax remains on chest x-ray. We did discuss with the patient surgical intervention including possible blebectomy if present, as well as mechanical pleurodesis. As this is his third right-sided sp ontaneous pneumothorax surgery is the recommendation, the patient understands and is agreeable. We will review his computed tomography scan once this completed, timing of surgery to be determined but likely early next week. Wean O2 as tolerated. Increase activity as tolerated. Medical management of the comorbidities per primary care service. More recommendations to follow. Thank you for this consult. Time with Patient: Greater than 30 <Reymundo Rodney - Last Filed: 04/08/20 14:43> Surgical - Exam Vital Signs Temp Pulse Resp BP Pulse Ox 98.1 F 72 18 152/99 98 04/04/20 21:44 04/04/20 21:44 04/04/20 21:44 04/04/20 21:44 04/04/20 21:44 Results - Labs 04/08/20 07:36 04/08/20 07:36 Abnormal Lab Results - Last 24 Hours (Table) 04/08/20 Range/Units 07:36 WBC 2.0 L (3.8-10.6) k/uL RBC 3.04 L (4.30-5.90) m/uL Hgb 9.7 L (13.0-17.5) gm/dL Hct 29.1 L (39.0-53.0) % Plt Count 146 L (150-450) k/uL Neutrophils # (Manual) 1.24 L (1.3-7.7) k/uL Lymphocytes # (Manual) 0.24 L (1.0-4.8) k/uL Diabetes panel 04/08/20 Range/Units 07:36 Sodium 138 (137-145) mmol/L Potassium 4.3 (3.5-5.1) mmol/L Chloride 103 (98-107) mmol/L Carbon Dioxide 30 (22-30) mmol/L BUN 11 (9-20) mg/dL Creatinine 0.75 (0.66-1.25) mg/dL Glucose 91 (74-99) mg/dL Calcium 9.1 (8.4-10.2) mg/dL Calcium panel 04/08/20 Range/Units 07:36 Calcium 9.1 (8.4-10.2) mg/dL Pituitary panel 04/08/20 Range/Units 07:36 Sodium 138 (137-145) mmol/L Potassium 4.3 (3.5-5.1) mmol/L Chloride 103 (98-107) mmol/L Carbon Dioxide 30 (22-30) mmol/L BUN 11 (9-20) mg/dL Creatinine 0.75 (0.66-1.25) mg/dL Glucose 91 (74-99) mg/dL Calcium 9.1 (8.4-10.2) mg/dL Adrenal panel 04/08/20 Range/Units 07:36 Sodium 138 (137-145) mmol/L Potassium 4.3 (3.5-5.1) mmol/L Chloride 103 (98-107) mmol/L Carbon Dioxide 30 (22-30) mmol/L BUN 11 (9-20) mg/dL Creatinine 0.75 (0.66-1.25) mg/dL Glucose 91 (74-99) mg/dL Calcium 9.1 (8.4-10.2) mg/dL Assessment and Plan Plan: The patient was seen and examined. History and physical findings were verified. I agree with the assessment and plan. The patient is a 79-year-old male who presents to the hospital with his third episode of right-sided spontaneous pneumothorax. The previous 2 episodes were treated with chest tube only. A chest tube has again been placed by the emergency department and there is evidence of air leak. We will obtain a computed tomography scan of the chest for further evaluation. Since this is his third episode, we did discuss the possibility of surgical intervention. The risks, benefits, and alternatives to right VATS with wedge resection and pleurodesis were discussed with the patient. All his questions answered. At this point he would like to consider his options, but we will present him with additional recommendations once remainder of his workup is done.
[2020-04-06] MEDS: HEPARIN SODIUM,PORCINE 5,000 UNIT/ML 1 ML VIAL SQ SCH ×4 (01:08→23:23)
[2020-04-06] MEDS: HYDROcodone/APAP 5-325MG 1 EACH TAB PO PRN ×3 (01:08→19:57)
[2020-04-06 08:07] LABS: HGB 9.9 gm/dL (13.0-17.5); MCH 30.5 pg (25.0-35.0); MCHC 31.9 g/dL (31.0-37.0); MCV 95.7 fL (80.0-100.0); Platelet Count 136 k/uL (150-450); RBC 3.24 m/uL (4.30-5.90); RDW 14.3 % (11.5-15.5); WBC 2.4 k/uL (3.8-10.6)
[2020-04-06 08:13] LABS: African American GFR (CKD) >90 (>60 ml/min/1.73 sqM); Anion Gap 6 mmol/L; Blood Urea Nitrogen 13 mg/dL (9-20); Carbon Dioxide 27 mmol/L (22-30); Chloride 102 mmol/L (98-107); Glucose 92 mg/dL (74-99); Non-African American GFR(CKD) 87 (>60 ml/min/1.73 sqM); Potassium 4.5 mmol/L (3.5-5.1); Sodium 135 mmol/L (137-145)
[2020-04-06] MEDS: lisinopriL 20 MG TAB PO SCH ×2 (08:32→20:28)
[2020-04-06 08:52] LABS: Anisocytosis (M) Present; Eosinophils # (M) 0.24 k/uL (0-0.7); Lymphocytes # (M) 0.22 k/uL (1.0-4.8); Monocytes # (M) 0.26 k/uL (0-1.0); Neutrophils # (M) 1.68 k/uL (1.3-7.7); Neutrophils % (M) 70 %; Nucleated Red Blood Cells 0 /100 WBC (0-0); Total Cells Counted 100
--- NOTE | 2020-04-06 10:06 | P.PN ---
Subjective Progress Note Date: 04/06/20 Principal diagnosis: Recurrent right-sided spontaneous pneumothorax. Previous medical history of spontaneous pneumothorax in March 2019 and September 2019, prostate cancer status post radiation, mantle cell lymphoma status post radiation, hypertension, previous tobacco dependence, and family history of cancer. Patient is currently sitting up in bed on the medical oncology unit in no acute distress. States pain from chest tube is well-controlled on current medication regimen, denies shortness of breath. Right pleural chest tube remains to continuous wall suction with minimal output, air leak present but less than yesterday, mostly with expiration and coughing. No new concerns. Objective - Vital Signs Vital signs: Vital Signs Temp 98.0 F 04/06/20 05:02 Pulse 64 04/06/20 05:02 Resp 17 04/06/20 05:02 BP 118/69 04/06/20 05:02 Pulse Ox 98 04/06/20 05:02 Intake & Output 04/05/20 04/06/20 04/06/20 18:59 06:59 18:59 Intake Total 620 200 Output Total 0 0 0 Balance 620 200 0 Intake: Oral 620 200 Output: Chest Tube Drainage 0 0 0 Right Mid-Axillary Chest 0 0 0 Other: Voiding Method Toilet Toilet Toilet # Voids 3 0 # Bowel Movements 0 0 # [place] 0 - Constitutional General appearance: Present: cooperative, no acute distress - Respiratory Details: Lungs sounds diminished bilaterally, coarse on the right side. Respirations ev en, nonlabored. Currently on 2 L nasal cannula with oxygen saturation 98%. Able to achieve 3422-2684 mL on his incentive spirometry. Right-sided pleural chest tube present to continuous wall suction, minimal thin serosanguineous drainage present, air leak present - Cardiovascular Details: S1, S2 present. Regular rate and rhythm. Palpable peripheral pulses bilaterally. No edema present. No calf pain or tenderness noted. - Gastrointestinal Gastrointestinal Comment(s): Abdomen soft, nontender, nondistended. Active bowel sounds present 4 quadrants. Tolerating diet. - Genitourinary Genitourinary Comment(s): Continues to void - Integumentary Integumentary Comment(s): Skin is warm and dry with evidence of good perfusion. - Neurologic Neurologic: Present: CNII-XII intact - Musculoskeletal Musculoskeletal: Present: gait normal, strength equal bilaterally - Psychiatric Psychiatric: Present: A&O x's 3, appropriate affect, intact judgment & insight - Allied health notes Allied health notes reviewed: nursing - Labs CBC & Chem 7: 04/06/20 07:10 04/06/20 07:10 Labs: Abnormal Lab Results - Last 24 Hours (Table) 04/06/20 04/06/20 Range/Units 07:10 07:10 WBC 2.4 L (3.8-10.6) k/uL RBC 3.24 L (4.30-5.90) m/uL Hgb 9.9 L (13.0-17.5) gm/dL Hct 31.0 L (39.0-53.0) % Plt Count 136 L (150-450) k/uL Lymphocytes # (Manual) 0.22 L (1.0-4.8) k/uL Sodium 135 L (137-145) mmol/L - Imaging and Cardiology CT scan - chest: report reviewed, image reviewed Assessment and Plan Assessment: 1. Recurrent right-sided spontaneous pneumothorax, status post pleural chest tube placement by the emergency room physicians at [facility] 2. History of prostate cancer diagnosed in 2017 status post radiation 3. 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 Hypertension 5. Previous tobacco dependence, quit March 2019 6. Family history of cancer Plan: 1. Continue pleural chest tube to continuous wall suction. Will monitor for resolution of air leak 2. Computed tomography scan reviewed. Will repeat chest x-ray tomorrow 3. Plan is for video-assisted thoracoscopic surgery, possible blebectomy, mechanical pleurodesis, timing to be determined but likely early in the week. 4. Wean O2 as tolerated. Encourage continued incentive spirometry use 5. Increase activity as tolerated 6. Continue pain control with current medication regimen 7. Medical management of other comorbidities per primary care service 8. More recommendations to follow Time with Patient: Greater than 30
--- NOTE | 2020-04-06 10:46 | P.PN ---
Subjective Progress Note Date: 04/06/20 Patient is doing fairly well today. Pain is well controlled. No shortness of breath. Objective - Vital Signs Vital signs: Vital Signs Temp 98.0 F 04/06/20 05:02 Pulse 64 04/06/20 05:02 Resp 17 04/06/20 05:02 BP 118/69 04/06/20 05:02 Pulse Ox 98 04/06/20 05:02 Intake & Output 04/05/20 04/06/20 04/06/20 18:59 06:59 18:59 Intake Total 620 200 Output Total 0 0 0 Balance 620 200 0 Intake: Oral 620 200 Output: Chest Tube Drainage 0 0 0 Right Mid-Axillary Chest 0 0 0 Other: Voiding Method Toilet Toilet Toilet # Voids 3 0 # Bowel Movements 0 0 # [place] 0 - Exam General: The patient is awake and alert, in no distress Eye: there is normal conjunctiva bilaterally. Neck: The neck is supple, there is no JVD. Cardiovascular: Normal S1-S2, no S3-S4, no murmurs. Respiratory: Lungs clear to auscultation bilaterally Gastrointestinal: Abdomen is soft, nontender Musculoskeletal: There is no pedal edema. Neurological:. Speech is normal. Skin: Skin is warm and dry - Labs CBC & Chem 7: 04/06/20 07:10 04/06/20 07:10 Labs: Abnormal Lab Results - Last 24 Hours (Table) 04/06/20 04/06/20 Range/Units 07:10 07:10 WBC 2.4 L (3.8-10.6) k/uL RBC 3.24 L (4.30-5.90) m/uL Hgb 9.9 L (13.0-17.5) gm/dL Hct 31.0 L (39.0-53.0) % Plt Count 136 L (150-450) k/uL Lymphocytes # (Manual) 0.22 L (1.0-4.8) k/uL Sodium 135 L (137-145) mmol/L Assessment and Plan Assessment: This is a 79-year-old male with past medical history noted below who presented to the emergency room with worsening right-sided chest pain and shortness of breath. Patient was evaluated at [place] [facility] and transferred to our hospital for admission for further management of his medical problems noted below. Spontaneous right-sided thorax, third episode since last year. -Status post chest tube insertion -CT of the chest on 04/05 showed tiny right pneumothorax with bilateral emphysematous changes -Thoracic surgery consulted and following closely, appreciate recommendations -Plan for VATS early next week History of mantle cell lymphoma and prostate cancer Hypertension -Continue with home med lisinopril Tobacco abuse -Counseled on the importance of cessation during this admission DVT prophylaxis -Heparin subq Abnormal for pain control.
[2020-04-07 07:40] LABS: African American GFR (CKD) >90 (>60 ml/min/1.73 sqM); Anion Gap 5 mmol/L; Blood Urea Nitrogen 11 mg/dL (9-20); Calcium 9.1 mg/dL (8.4-10.2); Carbon Dioxide 27 mmol/L (22-30); Chloride 104 mmol/L (98-107); Glucose 94 mg/dL (74-99); Non-African American GFR(CKD) 87 (>60 ml/min/1.73 sqM); Sodium 136 mmol/L (137-145)
[2020-04-07] MEDS: HEPARIN SODIUM,PORCINE 5,000 UNIT/ML 1 ML VIAL SQ SCH ×3 (07:51→23:46)
[2020-04-07] MEDS: lisinopriL 20 MG TAB PO SCH ×2 (07:51→20:32)
--- NOTE | 2020-04-07 07:54 | XR ---
EXAMINATION TYPE: XR chest 1V portable DATE OF EXAM: 04/07/2020 COMPARISON: 04/05/2020 INDICATION: Pneumothorax TECHNIQUE: Single frontal view of the chest is obtained. FINDINGS: The heart size is normal. The pulmonary vasculature is normal. Minimal left pleural effusion is present. Right-sided chest tube is present with the catheter in the midline. Tiny apical pneumothorax remains present, stable. IMPRESSION: 1. Stable small right apical pneumothorax. 2. Minimal left pleural effusion, an interval development
[2020-04-07 08:09] LABS: HCT 30.8 % (39.0-53.0); MCHC 32.7 g/dL (31.0-37.0); MCV 95.1 fL (80.0-100.0); Mean Platelet Volume 7.9; Platelet Count 136 k/uL (150-450); RBC 3.23 m/uL (4.30-5.90); RDW 14.2 % (11.5-15.5); WBC 2.5 k/uL (3.8-10.6)
[2020-04-07 08:40] LABS: Lymphocytes # (M) 0.23 k/uL (1.0-4.8); Monocytes # (M) 0.38 k/uL (0-1.0); Neutrophils % (M) 72 %; Nucleated Red Blood Cells 0 /100 WBC (0-0); Total Cells Counted 100
--- NOTE | 2020-04-07 14:13 | P.PN ---
Subjective Patient is doing fairly well today. Pain is well controlled. No shortness of breath. Objective - Vital Signs Vital signs: Vital Signs Temp 97.7 F 04/07/20 11:24 Pulse 76 04/07/20 11:24 Resp 18 04/07/20 11:24 BP 147/83 04/07/20 11:24 Pulse Ox 97 04/07/20 11:24 Intake & Output 04/06/20 04/07/20 04/07/20 18:59 06:59 18:59 Intake Total 1180 Output Total 402 600 Balance -402 580 Intake: Oral 1180 Output: Chest Tube Drainage 2 Right Mid-Axillary Chest 2 Urine 400 600 Other: Voiding Method Toilet Toilet Toilet # Voids 1 3 - Exam General: The patient is awake and alert, in no distress Eye: there is normal conjunctiva bilaterally. Neck: The neck is supple, there is no JVD. Cardiovascular: Normal S1-S2, no S3-S4, no murmurs. Respiratory: Lungs clear to auscultation bilaterally Gastrointestinal: Abdomen is soft, nontender Musculoskeletal: There is no pedal edema. Neurological:. Speech is normal. Skin: Skin is warm and dry - Labs CBC & Chem 7: 04/07/20 06:37 04/07/20 06:37 Labs: Abnormal Lab Results - Last 24 Hours (Table) 04/07/20 04/07/20 Range/Units 06:37 06:37 WBC 2.5 L (3.8-10.6) k/uL RBC 3.23 L (4.30-5.90) m/uL Hgb 10.0 L (13.0-17.5) gm/dL Hct 30.8 L (39.0-53.0) % Plt Count 136 L (150-450) k/uL Lymphocytes # (Manual) 0.23 L (1.0-4.8) k/uL Sodium 136 L (137-145) mmol/L Assessment and Plan Assessment: This is a 79-year-old male with past medical history noted below who presented to the emergency room with worsening right-sided chest pain and shortness of breath. Patient was evaluated at [place] [facility] and transferred to our hospital for admission for further management of his medical problems noted below. Spontaneous right-sided thorax, third episode since last year. -Status post chest tube insertion -CT of the chest on 04/05 showed tiny right pneumothorax with bilateral emphysematous changes -Thoracic surgery consulted and following closely, appreciate recommendations -Plan for VATS early next week History of mantle cell lymphoma and prostate cancer Hypertension -Continue with home med lisinopril Tobacco abuse -Counseled on the importance of cessation during this admission DVT prophylaxis -Heparin subq Abnormal for pain control.
[2020-04-08 08:28] LABS: HCT 29.1 % (39.0-53.0); HGB 9.7 gm/dL (13.0-17.5); MCH 31.8 pg (25.0-35.0); MCHC 33.2 g/dL (31.0-37.0); MCV 95.7 fL (80.0-100.0); Mean Platelet Volume 7.7; Platelet Count 146 k/uL (150-450); RBC 3.04 m/uL (4.30-5.90); RDW 14.2 % (11.5-15.5)
[2020-04-08 08:30] LABS: African American GFR (CKD) >90 (>60 ml/min/1.73 sqM); Anion Gap 5 mmol/L; Blood Urea Nitrogen 11 mg/dL (9-20); Calcium 9.1 mg/dL (8.4-10.2); Carbon Dioxide 30 mmol/L (22-30); Chloride 103 mmol/L (98-107); Glucose 91 mg/dL (74-99); Non-African American GFR(CKD) 89 (>60 ml/min/1.73 sqM); Potassium 4.3 mmol/L (3.5-5.1); Sodium 138 mmol/L (137-145)
[2020-04-08] MEDS: lisinopriL 20 MG TAB PO SCH ×2 (08:54→19:53)
[2020-04-08] MEDS: HEPARIN SODIUM,PORCINE 5,000 UNIT/ML 1 ML VIAL SQ SCH ×3 (08:54→23:40)
[2020-04-08 09:28] LABS: Basophils # (M) 0.04 k/uL (0-0.2); Eosinophils # (M) 0.22 k/uL (0-0.7); Lymphocytes # (M) 0.24 k/uL (1.0-4.8); Monocytes # (M) 0.26 k/uL (0-1.0); Neutrophils # (M) 1.24 k/uL (1.3-7.7); Neutrophils % (M) 62 %; Nucleated Red Blood Cells 0 /100 WBC (0-0); Total Cells Counted 100
--- NOTE | 2020-04-08 09:52 | P.PN ---
Subjective Progress Note Date: 04/08/20 Principal diagnosis: Recurrent right-sided spontaneous pneumothorax. Previous medical history of spontaneous pneumothorax in March 2019 and September 2019, prostate cancer status post radiation, mantle cell lymphoma status post radiation, hypertension, previous tobacco dependence, and family history of cancer. Patient is currently sitting up in bed on the medical oncology unit in no acute distress. States pain from chest tube is well-controlled on current medication regimen, denies shortness of breath. Right pleural chest tube remains to continuous wall suction with minimal output, air leak initially appeared resolved this morning, patient placed to waterseal, within a short time air leak reappeared and patient was placed back to wall suction. The patient was seen by Dr. Rodney this morning, we did discuss the necessity of surgery as the likelihood that a spontaneous pneumothorax will occur again is high. The patient is agreeable to surgery and we will likely take him to surgery Wednesday Objective - Vital Signs Vital signs: Vital Signs Temp 98.6 F 04/08/20 05:41 Pulse 72 04/08/20 05:41 Resp 18 04/08/20 05:41 BP 128/71 04/08/20 05:41 Pulse Ox 91 L 04/08/20 05:41 Intake & Output 04/07/20 04/08/20 04/08/20 18:59 06:59 18:59 Intake Total 1420 Balance 1420 Intake: Oral 1420 Other: Voiding Method Toilet Toilet # Voids 3 1 - Constitutional General appearance: Present: cooperative, no acute distress - Respiratory Details: Lungs sounds diminished bilaterally. Respirations even, nonlabored. Currently on 2 L nasal cannula with oxygen saturation in the mid 90s. Able to achieve 1500 mL on his incentive spirometry. Right-sided pleural chest tube present to continuous wall suction, minimal thin serosanguineous drainage present, air leak present with talking and coughing - Cardiovascular Details: S1, S2 present. Regular rate and rhythm. Palpable peripheral pulses bilaterally. No edema present. No calf pain or tenderness noted. - Gastrointestinal Gastrointestinal Comment(s): Abdomen soft, nontender, nondistended. Active bowel sounds present 4 quadrants. Tolerating diet. - Genitourinary Genitourinary Comment(s): Continues to void - Integumentary Integumentary Comment(s): Skin is warm and dry with evidence of good perfusion. - Neurologic Neurologic: Present: CNII-XII intact - Musculoskeletal Musculoskeletal: Present: strength equal bilaterally - Psychiatric Psychiatric: Present: A&O x's 3, appropriate affect, intact judgment & insight - Allied health notes Allied health notes reviewed: nursing - Labs CBC & Chem 7: 04/08/20 07:36 04/08/20 07:36 Labs: Abnormal Lab Results - Last 24 Hours (Table) 04/08/20 Range/Units 07:36 WBC 2.0 L (3.8-10.6) k/uL RBC 3.04 L (4.30-5.90) m/uL Hgb 9.7 L (13.0-17.5) gm/dL Hct 29.1 L (39.0-53.0) % Plt Count 146 L (150-450) k/uL Neutrophils # (Manual) 1.24 L (1.3-7.7) k/uL Lymphocytes # (Manual) 0.24 L (1.0-4.8) k/uL - Imaging and Cardiology CT scan - chest: report reviewed, image reviewed Assessment and Plan Assessment: 1. Recurrent right-sided spontaneous pneumothorax, status post pleural chest tube placement by the emergency room physicians at [facility] 2. History of prostate cancer diagnosed in 2017 status post radiation 3. 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 Hypertension 5. Previous tobacco dependence, quit March 2019 6. Family history of cancer Plan: 1. Continue pleural chest tube to continuous wall suction. 2. Computed tomography scan reviewed with Dr. Rodney 3. Plan is for video-assisted thoracoscopic surgery, wedge resection, mechanical pleurodesis with Dr. Rodney Wednesday 4. Wean O2 as tolerated. Encourage continued incentive spirometry use 5. Increase activity as tolerated 6. Continue pain control with current medication regimen 7. Medical management of other comorbidities per primary care service 8. More recommendations to follow Time with Patient: Greater than 30
--- NOTE | 2020-04-08 11:23 | P.PN ---
Subjective Progress Note Date: 04/08/20 Patient is doing fairly well today. Pain is well controlled. No shortness of breath. Objective - Vital Signs Vital signs: Vital Signs Temp 98.6 F 04/08/20 05:41 Pulse 72 04/08/20 05:41 Resp 18 04/08/20 05:41 BP 128/71 04/08/20 05:41 Pulse Ox 91 L 04/08/20 05:41 Intake & Output 04/07/20 04/08/20 04/08/20 18:59 06:59 18:59 Intake Total 1420 Balance 1420 Intake: Oral 1420 Other: Voiding Method Toilet Toilet # Voids 3 1 - Labs CBC & Chem 7: 04/08/20 07:36 04/08/20 07:36 Labs: Abnormal Lab Results - Last 24 Hours (Table) 04/08/20 Range/Units 07:36 WBC 2.0 L (3.8-10.6) k/uL RBC 3.04 L (4.30-5.90) m/uL Hgb 9.7 L (13.0-17.5) gm/dL Hct 29.1 L (39.0-53.0) % Plt Count 146 L (150-450) k/uL Neutrophils # (Manual) 1.24 L (1.3-7.7) k/uL Lymphocytes # (Manual) 0.24 L (1.0-4.8) k/uL Assessment and Plan Assessment: This is a 79-year-old male with past medical history noted below who presented to the emergency room with worsening right-sided chest pain and shortness of breath. Patient was evaluated at [place] [facility] and transferred to our hospital for admission for further management of his medical problems noted below. Spontaneous right-sided thorax, third episode since last year. -Status post chest tube insertion -CT of the chest on 04/05 showed tiny right pneumothorax with bilateral emphysematous changes -Thoracic surgery consulted and following closely, appreciate recommendations -Plan for VATS Wednesday History of mantle cell lymphoma and prostate cancer Hypertension -Continue with home med lisinopril Tobacco abuse -Counseled on the importance of cessation during this admission DVT prophylaxis -Heparin subq
[2020-04-09] MEDS: HEPARIN SODIUM,PORCINE 5,000 UNIT/ML 1 ML VIAL SQ SCH ×3 (08:10→23:21)
[2020-04-09] MEDS: lisinopriL 20 MG TAB PO SCH ×2 (08:10→21:02)
[2020-04-09 09:17] LABS: Basophils % (A) 1 %; Eosinophils # (A) 0.2 k/uL (0-0.7); Eosinophils % (A) 7 %; HCT 30.9 % (39.0-53.0); Lymphocytes # (A) 0.3 k/uL (1.0-4.8); Lymphocytes % (A) 13 %; MCH 31.1 pg (25.0-35.0); MCHC 32.5 g/dL (31.0-37.0); MCV 95.7 fL (80.0-100.0); Mean Platelet Volume 8.6; Monocytes # (A) 0.3 k/uL (0-1.0); Monocytes % (A) 12 %; Neutrophils # (A) 1.7 k/uL (1.3-7.7); Neutrophils % (A) 63 %; Platelet Count 150 k/uL (150-450); RBC 3.23 m/uL (4.30-5.90); RDW 14.3 % (11.5-15.5); WBC 2.6 k/uL (3.8-10.6)
--- NOTE | 2020-04-09 09:19 | XR ---
EXAMINATION TYPE: XR chest 1V portable DATE OF EXAM: 04/09/2020 CLINICAL HISTORY: Pneumothorax with chest tube progress study. TECHNIQUE: Single AP portable upright view of the chest is obtained. COMPARISON: Chest x-ray from [address] chest 3 days earlier. FINDINGS: Persistent background chronic emphysematous change and hyperexpanded right lung with media l position chest tube slightly retracted from most recent x-ray. Small to tiny right apical pneumotho rax slightly larger from most recent x-ray estimated 5 or just over 5%. Left lung remains clear. Card iac silhouette size is stable and within normal limits with atherosclerotic aorta. Osseous structures are demineralized. IMPRESSION: Small to tiny right apical pneumothorax slightly larger from most recent x-ray despite ch est tube redemonstrated
[2020-04-09 09:22] LABS: African American GFR (CKD) >90 (>60 ml/min/1.73 sqM); Anion Gap 5 mmol/L; Blood Urea Nitrogen 12 mg/dL (9-20); Calcium 9.1 mg/dL (8.4-10.2); Carbon Dioxide 30 mmol/L (22-30); Chloride 103 mmol/L (98-107); Glucose 90 mg/dL (74-99); Non-African American GFR(CKD) >90 (>60 ml/min/1.73 sqM); Potassium 4.1 mmol/L (3.5-5.1); Sodium 138 mmol/L (137-145)
--- NOTE | 2020-04-09 10:42 | P.PN ---
Subjective Progress Note Date: 04/09/20 Principal diagnosis: Recurrent right-sided spontaneous pneumothorax. Previous medical history of spontaneous pneumothorax in March 2019 and September 2019, prostate cancer status post radiation, mantle cell lymphoma status post radiation, hypertension, previous tobacco dependence, and family history of cancer. Patient is currently sitting up in bed on the medical oncology unit in no acute distress. Denies pain currently, denies shortness of breath. Right pleural chest tube remains to continuous wall suction with minimal output, intermittent air leak continues to be present. Anticipate surgery tomorrow afternoon. No new concerns Objective - Vital Signs Vital signs: Vital Signs Temp 97.6 F 04/09/20 05:00 Pulse 73 04/09/20 05:00 Resp 18 04/09/20 05:00 BP 125/75 04/09/20 05:00 Pulse Ox 95 04/09/20 05:00 Intake & Output 04/08/20 04/09/20 04/09/20 18:59 06:59 18:59 Intake Total 240 600 Balance 240 600 Intake: Oral 240 600 Other: Voiding Method Toilet # Voids 3 1 - Constitutional General appearance: Present: cooperative, no acute distress - Respiratory Details: Lungs sounds diminished bilaterally. Respirations even, nonlabored. Currently on 2 L nasal cannula with oxygen saturation 95%. Able to achieve 1500 mL on his incentive spirometry. Right-sided pleural chest tube present to continuous wall suction, 20 mL thin serosanguineous drainage in the last 24 hours, intermittent air leak present with talking and coughing - Cardiovascular Details: S1, S2 present. Regular rate and rhythm. Palpable peripheral pulses bilaterally. No edema present. No calf pain or tenderness noted. - Gastrointestinal Gastrointestinal Comment(s): Abdomen soft, nontender, nondistended. Active bowel sounds present 4 quadrants. Tolerating diet. - Genitourinary Genitourinary Comment(s): Continues to void - Integumentary Integumentary Comment(s): Skin is warm and dry with evidence of good perfusion. - Neurologic Neurologic: Present: CNII-XII intact - Musculoskeletal Musculoskeletal: Present: gait normal, strength equal bilaterally - Psychiatric Psychiatric: Present: A&O x's 3, appropriate affect, intact judgment & insight - Allied health notes Allied health notes reviewed: nursing - Labs CBC & Chem 7: 04/09/20 07:32 04/09/20 07:32 Labs: Abnormal Lab Results - Last 24 Hours (Table) 04/09/20 Range/Units 07:32 WBC 2.6 L (3.8-10.6) k/uL RBC 3.23 L (4.30-5.90) m/uL Hgb 10.0 L (13.0-17.5) gm/dL Hct 30.9 L (39.0-53.0) % Lymphocytes # 0.3 L (1.0-4.8) k/uL - Imaging and Cardiology Chest x-ray: report reviewed, image reviewed Assessment and Plan Assessment: 1. Recurrent right-sided spontaneous pneumothorax, status post pleural chest tu be placement by the emergency room physicians at [facility] 2. History of prostate cancer diagnosed in 2017 status post radiation 3. 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 Hypertension 5. Previous tobacco dependence, quit March 2019 6. Family history of cancer 7. Leukopenia, expected as patient recently finished radiation Plan: 1. Continue pleural chest tube to continuous wall suction. 2. Plan is for video-assisted thoracoscopic surgery, wedge resection, mechanical pleurodesis with Dr. Rodney Wednesday 3. Wean O2 as tolerated. Encourage continued incentive spirometry use 4. Increase activity as tolerated 5. Continue pain control with current medication regimen 6. Medical management of other comorbidities per primary care service 7. More recommendations to follow Time with Patient: Greater than 30
--- NOTE | 2020-04-09 12:24 | P.PN ---
Subjective Progress Note Date: 04/09/20 Patient is doing fairly well today. Pain is well controlled. No shortness of breath. Objective - Vital Signs Vital signs: Vital Signs Temp 97.6 F 04/09/20 12:21 Pulse 67 04/09/20 12:21 Resp 18 04/09/20 12:21 BP 132/76 04/09/20 12:21 Pulse Ox 98 04/09/20 12:21 Intake & Output 04/08/20 04/09/20 04/09/20 18:59 06:59 18:59 Intake Total 240 600 Balance 240 600 Intake: Oral 240 600 Other: Voiding Method Toilet # Voids 3 1 - Exam General: The patient is awake and alert, in no distress Eye: there is normal conjunctiva bilaterally. Neck: The neck is supple, there is no JVD. Cardiovascular: Normal S1-S2, no S3-S4, no murmurs. Respiratory: Lungs clear to auscultation bilaterally Gastrointestinal: Abdomen is soft, nontender Musculoskeletal: There is no pedal edema. Neurological:. Speech is normal. Skin: Skin is warm and dry - Labs CBC & Chem 7: 04/09/20 07:32 04/09/20 07:32 Labs: Abnormal Lab Results - Last 24 Hours (Table) 04/09/20 Range/Units 07:32 WBC 2.6 L (3.8-10.6) k/uL RBC 3.23 L (4.30-5.90) m/uL Hgb 10.0 L (13.0-17.5) gm/dL Hct 30.9 L (39.0-53.0) % Lymphocytes # 0.3 L (1.0-4.8) k/uL Assessment and Plan Assessment: This is a 79-year-old male with past medical history noted below who presented to the emergency room with worsening right-sided chest pain and shortness of breath. Patient was evaluated at [place] [facility] and transferred to our hospital for admission for further management of his medical problems noted below. Spontaneous right-sided thorax, third episode since last year. -Status post chest tube insertion -CT of the chest on 04/05 showed tiny right pneumothorax with bilateral emphysematous changes -Thoracic surgery consulted and following closely, appreciate recommendations -Plan for VATS Wednesday History of mantle cell lymphoma and prostate cancer Hypertension -Continue with home med lisinopril Tobacco abuse -Counseled on the importance of cessation during this admission DVT prophylaxis -Heparin subq
[2020-04-10] MEDS: HEPARIN SODIUM,PORCINE 5,000 UNIT/ML 1 ML VIAL SQ SCH ×3 (08:25→23:14)
[2020-04-10] MEDS: lisinopriL 20 MG TAB PO SCH ×2 (08:35→20:57)
[2020-04-10] MEDS ORDERED: LACTATED RINGERS 1,000 ML IV ONE (11:34)
[2020-04-10] MEDS ORDERED: ONDANSETRON 4 MG/2 ML VIAL ONE (11:47)
[2020-04-10] MEDS ORDERED: ONDANSETRON 4 MG/2 ML VIAL IVP ONE (11:48)
[2020-04-10] MEDS ORDERED: BUPIVACAINE (PF) 0.5% 30 ML VIAL SQ ONE ×3 (13:22→13:57)
[2020-04-10] MEDS ORDERED: HYDROmorphone 0.5 MG/0.5 ML SYRINGE IVP ONE ×3 (15:51→16:20)
--- NOTE | 2020-04-10 16:17 | XR ---
EXAMINATION TYPE: XR chest 1V portable DATE OF EXAM: 04/10/2020 COMPARISON: Prior chest x-ray 04/09/2020 HISTORY: Status post VATS TECHNIQUE: Single frontal view of the chest is obtained. FINDINGS: Right-sided chest tube is in place with the distal tip at the cardiac apex medially adjace nt to the mediastinum. There is subcutaneous emphysema. Patchy density present at the right lung apex . Abnormal area of increased attenuation is present at the right upper lobe, some linear areas of inc reased density may be related to patient's procedure. No sizable pneumothorax. Patchy density present in the left midlung. Aorta is dense. Heart is stable. IMPRESSION: Correlate for possible procedural implant right lung apex. Postprocedural changes, chest tube is described. Probable atelectasis left lung.
[2020-04-10] MEDS ORDERED: HYDROmorphone 1 MG/ML 1 ML SYRINGE IVP ONE (16:38)
[2020-04-10] MEDS: SODIUM CHLORIDE 0.9% 1,000 ML IV ONE (16:41)
--- NOTE | 2020-04-10 16:55 | P.PN ---
Subjective Patient is doing fairly well today. He is scheduled for VATS procedure later today Objective - Vital Signs Vital signs: Vital Signs Temp 97.2 F L 04/10/20 15:38 Pulse 68 04/10/20 16:30 Resp 18 04/10/20 16:30 BP 129/67 04/10/20 16:30 Pulse Ox 100 04/10/20 16:30 Intake & Output 04/09/20 04/10/20 04/10/20 18:59 06:59 18:59 Intake Total 265 305 3317 Output Total 435 Balance 240 590 565 Weight 68.492 kg Intake: IV 1000 Oral 240 590 Output: Urine 410 Estimated Blood Loss 25 Other: Voiding Method Toilet Toilet Urinal Urinal # Voids 3 2 - Exam General: The patient is awake and alert, in no distress Eye: there is normal conjunctiva bilaterally. Neck: The neck is supple, there is no JVD. Cardiovascular: Normal S1-S2, no S3-S4, no murmurs. Respiratory: Lungs clear to auscultation bilaterally Gastrointestinal: Abdomen is soft, nontender Musculoskeletal: There is no pedal edema. Neurological:. Speech is normal. Skin: Skin is warm and dry - Labs CBC & Chem 7: 04/09/20 07:32 04/09/20 07:32 Assessment and Plan Assessment: This is a 79-year-old male with past medical history noted below who presented to the emergency room with worsening right-sided chest pain and shortness of breath. Patient was evaluated at [place] [facility] and transferred to our hospital for admission for further management of his medical problems noted below. Spontaneous right-sided thorax, third episode since last year. -Status post chest tube insertion -CT of the chest on 04/05 showed tiny right pneumothorax with bilateral emphysematous changes -Thoracic surgery consulted and following closely, appreciate recommendations -Plan for VATS later today History of mantle cell lymphoma and prostate cancer Hypertension -Continue with home med lisinopril Tobacco abuse -Counseled on the importance of cessation during this admission DVT prophylaxis -Heparin subq
--- NOTE | 2020-04-10 17:29 | OP ---
OPERATIVE REPORT DATE OF SURGERY: 04/10/2020 PREOPERATIVE DIAGNOSIS: Spontaneous right pneumothorax. POSTOPERATIVE DIAGNOSIS: Spontaneous right pneumothorax. PROCEDURE: 1. VATS resection of apical blebs. 2. Mechanical pleurodesis. SURGEON: Reymundo Rodney MD. RECORDS MANAGEMENT ASSISTANT: CHETAN Johnson. ANESTHESIA: General. SPECIMEN: Parietal pleura. EBL: Less than 25 mL. COMPLICATIONS: None. INDICATION: The patient is a 79-year-old male who presented to the hospital with his third episode of right spontaneous pneumothorax. The previous two episodes were treated with chest tubes. CT scan of the chest revealed blebs at the apex of the lung. A right VATS with resection of blebs and pleurodesis was recommended. The risks, benefits, and alternatives of the procedure were discussed with the patient. All his questions were answered. Consent was obtained. FINDINGS: Blebs were noted at the apex of the right lung. Multiple plaques were noted along the parietal pleura. No obvious blebs were noted in the right middle lobe or right lower lobes. PROCEDURE IN DETAIL: The patient was taken to the operating room and placed supine on the operating table. A double-lumen endotracheal tube was placed by the Anesthesia Service. Its position was confirmed using a bronchoscope. The patient was then placed in the left lateral decubitus position with the right side up. Care was taken to pad all pressure points. The right chest and flank were then prepped and draped in the usual sterile fashion. With the right lung deflated, an incision was made at approximately the sixth intercostal space along the posterior axillary line. Dissection was taken down through subcutaneous tissue and the right pleural space was entered bluntly. A thoracoscope was introduced. Two additional working ports were then placed under direct vision. Adhesions were noted medially between the right upper lobe and the mediastinum. These were taken down using electrocautery. Inspection of the right upper lobe was then performed. There were multiple blebs noted at the apex. Using 60 mm reinforced loads, the right apex was resected. Multiple loads were used. The specimen was removed from the field and sent to Pathology. The reinforced suture line was inspected and appeared to be intact. Careful inspection was then performed on the remainder of the right upper lobe, right middle lobe, and right lower lobes. No additional obvious blebs were appreciated. There were multiple white plaques noted along the parietal pleura. One of these plaques was excised and the parietal pleura was sent to Pathology. The right chest was then filled with warm saline solution. I asked the Anesthesia Service to inflate the right lung. There were no obvious bubbles noted indicative of a large leak. A straight 32-[place]ian chest tube was placed and directed posteriorly toward the apex. It was secured to the skin using a suture. The right lung was then inflated. It appeared to inflate nicely. The three remaining wounds were then closed in layers. A sterile dressing was applied. The patient appeared to tolerate the procedure well. There were no immediate complications. He was extubated at the completion of the case and returned to the recovery room in stable condition. MMODL / IJN: [id number] / MTDTank
[2020-04-10] MEDS: HYDROcodone/APAP 5-325MG 1 EACH TAB PO PRN (20:57)
[2020-04-11] MEDS: HYDROcodone/APAP 5-325MG 1 EACH TAB PO PRN ×6 (00:55→22:32)
[2020-04-11 06:52] LABS: HCT 29.3 % (39.0-53.0); HGB 9.4 gm/dL (13.0-17.5); MCH 31.2 pg (25.0-35.0); MCHC 32.2 g/dL (31.0-37.0); Mean Platelet Volume 8.1; Platelet Count 148 k/uL (150-450); RBC 3.02 m/uL (4.30-5.90); RDW 14.4 % (11.5-15.5); WBC 5.3 k/uL (3.8-10.6)
[2020-04-11 07:15] LABS: African American GFR (CKD) >90 (>60 ml/min/1.73 sqM); Anion Gap 6 mmol/L; Blood Urea Nitrogen 19 mg/dL (9-20); Calcium 8.6 mg/dL (8.4-10.2); Carbon Dioxide 28 mmol/L (22-30); Chloride 100 mmol/L (98-107); Glucose 120 mg/dL (74-99); Non-African American GFR(CKD) 89 (>60 ml/min/1.73 sqM); Potassium 4.5 mmol/L (3.5-5.1); Sodium 134 mmol/L (137-145)
--- NOTE | 2020-04-11 07:50 | XR ---
EXAMINATION TYPE: XR chest 1V portable DATE OF EXAM: 04/11/2020 Comparison: 04/10/2020 Clinical History: 79-year-old male post vats Findings: Right apical chest tube is present. Suspect some postsurgical change at the right apex. Suspect trace r right apical pneumothorax estimated at 1.2 cm, not significantly changed. Heart normal size. Prosta tic calcifications throughout the aorta. Diffuse interstitial density and hyperinflation. Impression: 1. COPD and apically directed right-sided chest tube with some postsurgical change at the right apex. 2. Suspect an underlying trace right apical pneumothorax measuring approximately 1.2 cm, not signific antly changed.
[2020-04-11] MEDS: lisinopriL 20 MG TAB PO SCH ×2 (08:36→22:31)
[2020-04-11] MEDS: HEPARIN SODIUM,PORCINE 5,000 UNIT/ML 1 ML VIAL SQ SCH ×3 (09:00→22:32)
--- NOTE | 2020-04-11 10:38 | P.PN ---
Subjective Progress Note Date: 04/11/20 Principal diagnosis: Recurrent right-sided spontaneous pneumothorax. Previous medical history of spontaneous pneumothorax in March 2019 and September 2019, prostate cancer status post radiation, mantle cell lymphoma status post radiation, hypertension, previous tobacco dependence, and family history of cancer. POD #1 right-sided video-assisted thoracoscopic surgery with resection of apical blebs, mechanical pleurodesis Patient is currently sitting up in bed on the cardiac stepdown unit in no acute distress. States pain is controlled on current medication regimen, denies shortness of breath. Right pleural chest tube present to continuous wall suction with minimal output, intermittent air leak present. Uneventful night, no new concerns Objective - Vital Signs Vital signs: Vital Signs Temp 97.9 F 04/11/20 08:00 Pulse 68 04/11/20 08:00 Resp 19 04/11/20 08:00 BP 88/52 04/11/20 08:00 Pulse Ox 98 04/11/20 08:00 Intake & Output 04/10/20 04/11/20 04/11/20 18:59 06:59 18:59 Intake Total 1000 200 Output Total 435 236 Balance 565 -36 Weight 68.492 kg 72 kg Intake: IV 1000 Intake, IV Titration 50 Amount ceFAZolin 2 gm In Sodium 50 Chloride 0.9% 50 ml @ 100 mls/hr IVPB Q8H [facility] Rx#: [id number] Oral 150 Output: Chest Tube Drainage 136 Right Mid-Axillary Chest 136 Urine 410 100 Estimated Blood Loss 25 Other: Voiding Method Toilet Urinal Urinal Urinal # Voids 1 - Constitutional General appearance: Present: cooperative, no acute distress - Respiratory Details: Lungs sounds diminished bilaterally. Respirations even, nonlabored. Currently on 2 L nasal cannula with oxygen saturation 98%. Able to achieve 1000 mL on his incentive spirometry. Right-sided pleural chest tube present to continuous wall suction, 45 mL thin serosanguineous drainage overnight, 160 mL in the last 24 hours, intermittent air leak present - Cardiovascular Details: S1, S2 present. Regular rate and rhythm, sinus rhythm on telemetry. Palpable peripheral pulses bilaterally. No edema present. No calf pain or tenderness noted. - Gastrointestinal Gastrointestinal Comment(s): Abdomen soft, nontender, nondistended. Active bowel sounds present 4 quadrants. Tolerating diet. - Genitourinary Genitourinary Comment(s): Continues to void - Integumentary Integumentary Comment(s): Skin is warm and dry with evidence of good perfusion. - Neurologic Neurologic: Present: CNII-XII intact - Musculoskeletal Musculoskeletal: Present: gait normal, strength equal bilaterally - Psychiatric Psychiatric: Present: A&O x's 3, appropriate affect, intact judgment & insight - Allied health notes Allied health notes reviewed: nursing - Labs CBC & Chem 7: 04/11/20 06:19 04/11/20 06:19 Labs: Abnormal Lab Results - Last 24 Hours (Table) 04/11/20 04/11/20 Range/Units 06:19 06:19 RBC 3.02 L (4.30-5.90) m/uL Hgb 9.4 L (13.0-17.5) gm/dL Hct 29.3 L (39.0-53.0) % Plt Count 148 L (150-450) k/uL Sodium 134 L (137-145) mmol/L Glucose 120 H (74-99) mg/dL - Imaging and Cardiology Chest x-ray: report reviewed, image reviewed Assessment and Plan Assessment: 1. Recurrent right-sided spontaneous pneumothorax, status post VATS with resection of blebs and mechanical pleurodesis 2. History of prostate cancer diagnosed in 2017 status post radiation 3. 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 Hypertension 5. Previous tobacco dependence, quit March 2019 6. Family history of cancer 7. Leukopenia, expected as patient recently finished radiation Plan: 1. Continue pleural chest tube to continuous wall suction. Will monitor for resolution of air leak 2. Wean O2 as tolerated. Encourage continued incentive spirometry use 3. Increase activity as tolerated. May take patient on suction for short time periods to ambulate in the hallway 4. Continue pain control with current medication regimen 5. Medical management of other comorbidities per primary care service 6. More recommendations to follow Time with Patient: Greater than 30
--- NOTE | 2020-04-11 12:35 | P.PN ---
Subjective Progress Note Date: 04/11/20 Patient is seen and examined at bedside. Patient has no complaints today. Patient's breathing has improved. Patient tolerated the VATS procedure well. Chest tube in place. This is a 79-year-old male with spontaneous right-sided thorax, third episode since last yea, who presented to the emergency room with worsening right-sided chest pain and shortness of breath. Patient was evaluated at [place] [facility] and transferred to our hospital for admission. Objective - Vital Signs Vital signs: Vital Signs Temp 97.9 F 04/11/20 12:00 Pulse 76 04/11/20 12:00 Resp 19 04/11/20 12:00 BP 105/56 04/11/20 12:00 Pulse Ox 98 04/11/20 12:00 Intake & Output 04/10/20 04/11/20 04/11/20 18:59 06:59 18:59 Intake Total 1000 200 240 Output Total 435 236 Balance 565 -36 240 Weight 68.492 kg 72 kg 72 kg Intake: IV 1000 Intake, IV Titration 50 Amount ceFAZolin 2 gm In Sodium 50 Chloride 0.9% 50 ml @ 100 mls/hr IVPB Q8H [facility] Rx#: [id number] Oral 150 240 Output: Chest Tube Drainage 136 Right Mid-Axillary Chest 136 Urine 410 100 Estimated Blood Loss 25 Other: Voiding Method Toilet Urinal Urinal Urinal # Voids 1 0 - Exam General: [non toxic], [no distress], [appears at stated age] Derm: [warm], [dry] Head: [atraumatic], [normocephalic], [symmetric] Eyes: [EOMI], [no lid lag], [anicteric sclera] Mouth: [no lip lesion], [mucus membranes moist] Cardiovascular: [S1S2 reg], [no murmur], [positive posterior tibial pulse bilateral], Lungs: [CTA bilateral chest tube in place], [no rhonchi, no rales] , [no accessory muscle use] Abdominal: [soft], [ nontender to palpation], [no guarding], [no appreciable organomegaly] Ext: [no gross muscle atrophy], [no edema], [no contractures] Neuro: [ CN II-XI grossly intact], [no focal neuro deficits] Psych: [Alert], [oriented], [appropriate affect] - Labs CBC & Chem 7: 04/11/20 06:19 04/11/20 06:19 Labs: Abnormal Lab Results - Last 24 Hours (Table) 04/11/20 04/11/20 Range/Units 06:19 06:19 RBC 3.02 L (4.30-5.90) m/uL Hgb 9.4 L (13.0-17.5) gm/dL Hct 29.3 L (39.0-53.0) % Plt Count 148 L (150-450) k/uL Sodium 134 L (137-145) mmol/L Glucose 120 H (74-99) mg/dL Assessment and Plan Assessment: Spontaneous right-sided thorax, third episode since last year. -Status post chest tube insertion, patient is postop day #1 VATS procedure -CT of the chest on 04/05 showed tiny right pneumothorax with bilateral emphysematous changes -Thoracic surgery consulted and following closely, appreciate recommendations History of mantle cell lymphoma and prostate cancer Hypertension -Continue with home med lisinopril Tobacco abuse -Counseled on the importance of cessation during this admission DVT prophylaxis -Heparin subq
[2020-04-12 07:17] LABS: Basophils % (A) 1 %; Eosinophils # (A) 0.1 k/uL (0-0.7); Eosinophils % (A) 3 %; HCT 28.9 % (39.0-53.0); HGB 9.3 gm/dL (13.0-17.5); Lymphocytes # (A) 0.3 k/uL (1.0-4.8); Lymphocytes % (A) 7 %; MCHC 32.1 g/dL (31.0-37.0); MCV 96.4 fL (80.0-100.0); Mean Platelet Volume 8.2; Monocytes # (A) 0.3 k/uL (0-1.0); Monocytes % (A) 7 %; Neutrophils # (A) 3.8 k/uL (1.3-7.7); Neutrophils % (A) 80 %; Platelet Count 146 k/uL (150-450); RBC 2.99 m/uL (4.30-5.90); RDW 14.4 % (11.5-15.5); WBC 4.8 k/uL (3.8-10.6)
[2020-04-12 07:36] LABS: ALT 17 U/L (4-49); AST 40 U/L (17-59); African American GFR (CKD) >90 (>60 ml/min/1.73 sqM); Albumin 2.9 g/dL (3.5-5.0); Alkaline Phosphatase 62 U/L (38-126); Anion Gap 6 mmol/L; Blood Urea Nitrogen 17 mg/dL (9-20); Calcium 8.7 mg/dL (8.4-10.2); Carbon Dioxide 29 mmol/L (22-30); Chloride 94 mmol/L (98-107); Glucose 99 mg/dL (74-99); Non-African American GFR(CKD) 86 (>60 ml/min/1.73 sqM); Potassium 4.3 mmol/L (3.5-5.1); Sodium 129 mmol/L (137-145); Total Bilirubin 0.6 mg/dL (0.2-1.3); Total Protein 5.2 g/dL (6.3-8.2)
[2020-04-12] MEDS: HYDROcodone/APAP 5-325MG 1 EACH TAB PO PRN ×2 (07:58→16:12)
[2020-04-12] MEDS: lisinopriL 20 MG TAB PO SCH ×2 (07:58→19:43)
[2020-04-12] MEDS: HEPARIN SODIUM,PORCINE 5,000 UNIT/ML 1 ML VIAL SQ SCH ×2 (07:58→16:08)
--- NOTE | 2020-04-12 08:15 | XR ---
EXAMINATION TYPE: XR chest 1V portable DATE OF EXAM: 04/12/2020 Comparison: 04/11/2020 Clinical History: 79-year-old male Post VATS Findings: Heart normal size. Atherosclerotic arch calcifications. Hyperinflation with mild interstitial density . Subcutaneous emphysema persists along the right side of the chest. Postsurgical change at the right apex with a suspected continued trace right apical pneumothorax. Difficult to exclude some increasin g patchy density in the periphery of the right lung. Trace right effusion. Impression: 1. Apically directed right-sided chest tube. Surgical change at the right apex with a suspected under lying stable, trace right apical pneumothorax. 2. A trace right effusion now noted and some increasing peripheral patchy density in the right lung. Follow-up recommended. 3. Background of COPD.
[2020-04-12] MEDS: IBUPROFEN 600 MG TAB PO PRN (11:01)
--- NOTE | 2020-04-12 13:08 | P.PN ---
Subjective Progress Note Date: 04/12/20 (delayed charting seen at 1130) Principal diagnosis: shortness of breath Patient is a 79-year-old male with hypertension, BPH, mantle cell lymphoma, and prostate cancer who presented to the emergency room as a transfer from [place] secondary to sudden onset right chest pain or shortness of breath. She was found have a large right-sided pneumothorax with mediastinal shift to the left. He has a chest tube placed with resolution of the mediastinal shift. Initial laboratory analysis demonstrated an increased creatinine consistent with dehydration. He was admitted and CT surgery was consulted. Initially conservative management was attempted with chest tube placement. CT chest 04/05 which showed a tiny right-sided pneumothorax with emphysematous changes and multiple blebs. He failed conservative management of chest tube. He ultimately underwent a VATS on 04/10 with resection of apical blebs and mechanical pleurodesis. Patient seen and examined at bedside. He denies any overt shortness of breath, no nausea, no vomiting, pain with movement or deep inspiration but is well controlled with oral [place]. General: non toxic, no distress, appears at stated age Derm: warm, dry Head: atraumatic, normocephalic, symmetric Eyes: EOMI, no lid lag, anicteric sclera Mouth: no lip lesion, mucus membranes moist Cardiovascular: S1S2 reg, no murmur, positive posterior tibial pulse bilateral, Lungs: Rhonchi right base, no accessory muscle use, chest tube in place with sma ll air leak Abdominal: soft, nontender to palpation, no guarding, no appreciable organomegaly Ext: no gross muscle atrophy, no edema, no contractures Neuro: CN II-XI grossly intact, no focal neuro deficits Psych: Alert, oriented, appropriate affect Tension pneumothorax status post chest tube, postop day #2 status post VATS -Chest tube in place. Management per CT surgery -Pain control -Pulmonary hygiene Hyponatremia -Undetermined etiology -Encourage oral intake -Repeat sodium in a.m. Hypertension -Lisinopril -Controlled Anemia -Was present prior to surgery, undetermined etiology but likely related to chronic bone marrow suppression secondary to cancer -Follow CBC -Hemoglobin currently stable and will defer to outpatient workup. Thrombocytopenia -Also suspect chronic in nature -Follow CBC -Further outpatient evaluation Prior tobacco abuse-quit March 2019 History of mantle cell lymphoma and prostate cancer DVT prophylaxis: Heparin Discussed with: patient, nursing Anticipated discharge: in AM Anticipated discharge place: home A total of 25 minutes was spent on the care of this complex patient more than 50% of the time was spent in counseling and care coordination. Objective - Vital Signs Vital signs: Vital Signs Temp 98.3 F 04/12/20 11:33 Pulse 84 04/12/20 11:33 Resp 18 04/12/20 11:33 BP 150/73 04/12/20 11:33 Pulse Ox 92 L 04/12/20 11:33 Intake & Output 04/11/20 04/12/20 04/12/20 18:59 06:59 18:59 Intake Total 480 240 Output Total 425 710 250 Balance 55 -710 -10 Weight 72 kg 70.9 kg Intake: Oral 480 240 Output: Chest Tube Drainage 25 10 Right Mid-Axillary Chest 25 10 Urine 400 700 250 Other: Voiding Method Urinal Urinal # Voids 1 1 - Labs CBC & Chem 7: 04/12/20 05:53 04/12/20 05:53 Labs: Abnormal Lab Results - Last 24 Hours (Table) 04/12/20 04/12/20 Range/Units 05:53 05:53 RBC 2.99 L (4.30-5.90) m/uL Hgb 9.3 L (13.0-17.5) gm/dL Hct 28.9 L (39.0-53.0) % Plt Count 146 L (150-450) k/uL Lymphocytes # 0.3 L (1.0-4.8) k/uL Sodium 129 L (137-145) mmol/L Chloride 94 L (98-107) mmol/L Total Protein 5.2 L (6.3-8.2) g/dL Albumin 2.9 L (3.5-5.0) g/dL
--- NOTE | 2020-04-12 13:42 | P.PN ---
Subjective Progress Note Date: 04/12/20 Principal diagnosis: Recurrent right-sided spontaneous pneumothorax. Previous medical history of spontaneous pneumothorax in March 2019 and September 2019, prostate cancer status post radiation, mantle cell lymphoma status post radiation, hypertension, previous tobacco dependence, and family history of cancer. POD #2 right-sided video-assisted thoracoscopic surgery with resection of apical blebs, mechanical pleurodesis Patient is currently sitting up in bed on the cardiac stepdown unit in no acute distress. States pain is controlled on current medication regimen, denies shortness of breath. Right pleural chest tube present to waterseal with minimal output, intermittent air leak present. Uneventful night, no new concerns Objective - Vital Signs Vital signs: Vital Signs Temp 98.3 F 04/12/20 11:33 Pulse 84 04/12/20 11:33 Resp 18 04/12/20 11:33 BP 150/73 04/12/20 11:33 Pulse Ox 92 L 04/12/20 11:33 Intake & Output 04/11/20 04/12/20 04/12/20 18:59 06:59 18:59 Intake Total 480 240 Output Total 425 710 250 Balance 55 -710 -10 Weight 72 kg 70.9 kg Intake: Oral 480 240 Output: Chest Tube Drainage 25 10 Right Mid-Axillary Chest 25 10 Urine 400 700 250 Other: Voiding Method Urinal Urinal # Voids 1 1 - Constitutional General appearance: Present: cooperative, no acute distress - Respiratory Details: Lungs sounds diminished bilaterally. Respirations even, nonlabored. Currently on 2 L nasal cannula with oxygen saturation 92%. Able to achieve 1000 mL on his incentive spirometry. Right-sided pleural chest tube present to continuous wall suction, 10 mL thin serosanguineous drainage overnight, 60 mL in the last 24 hours, intermittent air leak present with expiration and talking - Cardiovascular Details: S1, S2 present. Regular rate and rhythm, sinus rhythm on telemetry. Palpable peripheral pulses bilaterally. No edema present. No calf pain or tenderness noted. - Gastrointestinal Gastrointestinal Comment(s): Abdomen soft, nontender, nondistended. Active bowel sounds present 4 quadrants. Tolerating diet. - Genitourinary Genitourinary Comment(s): Continues to void - Integumentary Integumentary Comment(s): Skin is warm and dry with evidence of good perfusion. - Neurologic Neurologic: Present: CNII-XII intact - Musculoskeletal Musculoskeletal: Present: gait normal, strength equal bilaterally - Psychiatric Psychiatric: Present: A&O x's 3, appropriate affect, intact judgment & insight - Allied health notes Allied health notes reviewed: nursing - Labs CBC & Chem 7: 04/12/20 05:53 04/12/20 05:53 Labs: Abnormal Lab Results - Last 24 Hours (Table) 04/12/20 04/12/20 Range/Units 05:53 05:53 RBC 2.99 L (4.30-5.90) m/uL Hgb 9.3 L (13.0-17.5) gm/dL Hct 28.9 L (39.0-53.0) % Plt Count 146 L (150-450) k/uL Lymphocytes # 0.3 L (1.0-4.8) k/uL Sodium 129 L (137-145) mmol/L Chloride 94 L (98-107) mmol/L Total Protein 5.2 L (6.3-8.2) g/dL Albumin 2.9 L (3.5-5.0) g/dL - Imaging and Cardiology Chest x-ray: report reviewed, image reviewed Assessment and Plan Assessment: 1. Recurrent right-sided spontaneous pneumothorax, status post VATS with resection of blebs and mechanical pleurodesis 2. History of prostate cancer diagnosed in 2017 status post radiation 3. 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 Hypertension 5. Previous tobacco dependence, quit March 2019 6. Family history of cancer 7. Leukopenia, expected as patient recently finished radiation Plan: 1. Continue pleural chest tube to waterseal. Will monitor for resolution of air leak 2. Wean O2 as tolerated. Encourage continued incentive spirometry use 3. Increase activity as tolerated. May take patient on suction for short time periods to ambulate in the hallway 4. Continue pain control with current medication regimen 5. Medical management of other comorbidities per primary care service 6. More recommendations to follow Time with Patient: Greater than 30
[2020-04-13] MEDS: HEPARIN SODIUM,PORCINE 5,000 UNIT/ML 1 ML VIAL SQ SCH ×4 (00:41→23:10)
[2020-04-13] MEDS: HYDROcodone/APAP 5-325MG 1 EACH TAB PO PRN ×5 (00:42→23:10)
[2020-04-13 06:52] LABS: HCT 27.8 % (39.0-53.0); MCH 31.2 pg (25.0-35.0); MCHC 32.6 g/dL (31.0-37.0); MCV 95.9 fL (80.0-100.0); Mean Platelet Volume 8.3; Platelet Count 134 k/uL (150-450); RDW 14.3 % (11.5-15.5); WBC 3.4 k/uL (3.8-10.6)
[2020-04-13 07:15] LABS: African American GFR (CKD) >90 (>60 ml/min/1.73 sqM); Anion Gap 4 mmol/L; Blood Urea Nitrogen 15 mg/dL (9-20); Calcium 8.5 mg/dL (8.4-10.2); Carbon Dioxide 29 mmol/L (22-30); Chloride 95 mmol/L (98-107); Glucose 97 mg/dL (74-99); Non-African American GFR(CKD) >90 (>60 ml/min/1.73 sqM); Potassium 4.1 mmol/L (3.5-5.1); Sodium 128 mmol/L (137-145)
[2020-04-13] MEDS ORDERED: SODIUM CHLORIDE 0.9% 500 ML 500 ML IV ONE (07:19)
[2020-04-13] MEDS: SODIUM CHLORIDE 0.9% 1,000 ML IV ONE (08:25)
[2020-04-13] MEDS: lisinopriL 20 MG TAB PO SCH ×2 (08:26→20:13)
--- NOTE | 2020-04-13 08:36 | XR ---
EXAMINATION TYPE: XR chest 2V DATE OF EXAM: 04/13/2020 COMPARISON: 04/12/2020 HISTORY: 79-year-old male status post VATS, pneumothorax. TECHNIQUE: PA and lateral views FINDINGS: A vaguely direct right-sided chest tube is redemonstrated. There is a right-sided hydropneumothorax. Post surgical change at the right apex. Enlarging pneumothorax component at the right base, estimated at 20%. Small pleural effusion component. Mild diffuse interstitial prominence and hyperinflation. IMPRESSION: 1. Apically directly right-sided chest tube remains in place. Post surgical change of the right apex with ENLARGING right-sided hydropneumothorax. 2. Moderate-sized basilar component to the pneumothorax is new estimated at 20%. The previous trace a pical component is not well seen. Small pleural effusion component.
--- NOTE | 2020-04-13 08:59 | P.PN ---
Subjective Progress Note Date: 04/13/20 Principal diagnosis: Recurrent right-sided spontaneous pneumothorax. Previous medical history of spontaneous pneumothorax in March 2019 and September 2019, prostate cancer status post radiation, mantle cell lymphoma status post radiation, hypertension, previous tobacco dependence, and family history of cancer. POD #3 right-sided video-assisted thoracoscopic surgery with resection of apical blebs, mechanical pleurodesis Patient is currently sitting up in bed on the cardiac stepdown unit in no acute distress. States pain is controlled on current medication regimen, denies shortness of breath. Does complain of lack of sleep due to significant dry mouth. Right pleural chest tube present to [facility] with minimal output, no air leak present. Chest x-ray this morning demonstrates resolution of the apical pneumothorax, however there is estimated 20% basilar pneumothorax Objective - Vital Signs Vital signs: Vital Signs Temp 97.8 F 04/13/20 08:16 Pulse 94 04/13/20 08:27 Resp 18 04/13/20 08:27 BP 114/98 04/13/20 08:16 Pulse Ox 94 L 04/13/20 08:27 Intake & Output 04/12/20 04/13/20 04/13/20 18:59 06:59 18:59 Intake Total 480 150 10 Output Total 450 1600 Balance 30 -1450 10 Weight 70.6 kg Intake: IV 10 Invasive Line 2 10 Oral 480 150 Output: Urine 450 1600 Other: Voiding Method Toilet Toilet Urinal Urinal # Voids 1 - Constitutional General appearance: Present: cooperative, no acute distress - Respiratory Details: Lungs sounds diminished bilaterally with expiratory wheezes present. Respirations even, nonlabored. Currently on room air with oxygen saturation 92%. Able to achieve 750-1000 mL on his incentive spirometry. Right-sided pleural chest tube present to [facility], no drainage in the last 24 hours, no air leak present. - Cardiovascular Details: S1, S2 present. Regular rate and rhythm, sinus rhythm on telemetry. Palpable peripheral pulses bilaterally. No edema present. No calf pain or tenderness noted. - Gastrointestinal Gastrointestinal Comment(s): Abdomen soft, nontender, nondistended. Active bowel sounds present 4 quadrants. Tolerating diet. - Genitourinary Genitourinary Comment(s): Continues to void - Integumentary Integumentary Comment(s): Skin is warm and dry with evidence of good perfusion. - Neurologic Neurologic: Present: CNII-XII intact - Musculoskeletal Musculoskeletal: Present: gait normal, strength equal bilaterally - Psychiatric Psychiatric: Present: A&O x's 3, appropriate affect, intact judgment & insight - Allied health notes Allied health notes reviewed: nursing - Labs CBC & Chem 7: 04/13/20 05:59 04/13/20 05:59 Labs: Abnormal Lab Results - Last 24 Hours (Table) 04/13/20 04/13/20 04/13/20 Range/Units 05:59 05:59 05:59 WBC 3.4 L (3.8-10.6) k/uL RBC 2.90 L (4.30-5.90) m/uL Hgb 9.0 L (13.0-17.5) gm/dL Hct 27.8 L (39.0-53.0) % Plt Count 134 L (150-450) k/uL Sodium 128 L (137-145) mmol/L Chloride 95 L (98-107) mmol/L Osmolality 270 L (280-301) mosm/kg - Imaging and Cardiology Chest x-ray: report reviewed, image reviewed Assessment and Plan Assessment: 1. Recurrent right-sided spontaneous pneumothorax, status post VATS with resection of blebs and mechanical pleurodesis 2. History of prostate cancer diagnosed in 2017 status post radiation 3. 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 Hypertension 5. Previous tobacco dependence, quit March 2019 6. Family history of cancer 7. Leukopenia, expected as patient recently finished radiation Plan: 1. Continue pleural chest tube to [facility]. Will monitor for resolution of pneumothorax 2. Encourage continued incentive spirometry use 3. Increase activity as tolerated. 4. Continue pain control with current medication regimen 5. Medical management of other comorbidities per primary care service 6. More recommendations to follow Time with Patient: Greater than 30
--- NOTE | 2020-04-13 10:56 | P.PN ---
Subjective Progress Note Date: 04/13/20 (delayed charting seen at 0945) Principal diagnosis: shortness of breath Patient is a 79-year-old male with hypertension, BPH, mantle cell lymphoma, and prostate cancer who presented to the emergency room as a transfer from [place] secondary to sudden onset right chest pain or shortness of breath. She was found have a large right-sided pneumothorax with mediastinal shift to the left. He has a chest tube placed with resolution of the mediastinal shift. Initial laboratory analysis demonstrated an increased creatinine consistent with dehydration. He was admitted and CT surgery was consulted. Initially conservative management was attempted with chest tube placement. CT chest 04/05 which showed a tiny right-sided pneumothorax with emphysematous changes and multiple blebs. He failed conservative management of chest tube. He ultimately underwent a VATS on 04/10 with resection of apical blebs and mechanical pleurodesis. Patient seen and examined at bedside. Feeling tired and shaky this morning form being tired, concerned about bleeding at CT site and small amount of blood in sputum. Report feeling very dry and it has been difficult to swallow as food is dry from his prior radiation. General: non toxic, no distress, appears at stated age Derm: warm, dry Head: atraumatic, normocephalic, symmetric Eyes: EOMI, no lid lag, anicteric sclera Mouth: no lip lesion, mucus membranes moist Cardiovascular: S1S2 reg, no murmur, positive posterior tibial pulse bilateral, Lungs: Rhonchi right base, no accessory muscle use, chest tube in place with small air leak Abdominal: soft, nontender to palpation, no guarding, no appreciable organomegaly Ext: no gross muscle atrophy, no edema, no contractures Neuro: CN II-XI grossly intact, no focal neuro deficits Psych: Alert, oriented, appropriate affect Tension pneumothorax status post chest tube, postop day #2 status post VATS -Chest tube in place. Management per CT surgery -Pain control -Pulmonary hygiene Hyponatremia -Undetermined etiology -0.9% NS saline bolus for fluid challenge -recheck at 1200 - check urine/serum osmol, urine sodium Hypertension -Lisinopril -Controlled Anemia -Was present prior to surgery, undetermined etiology but likely related to chronic bone marrow suppression secondary to cancer -Follow CBC -Hemoglobin currently stable and will defer to outpatient workup. Thrombocytopenia -Also suspect chronic in nature -Follow CBC -Further outpatient evaluation Prior tobacco abuse-quit March 2019 History of mantle cell lymphoma and prostate cancer DVT prophylaxis: Heparin Discussed with: patient, nursing Anticipated discharge: in AM Anticipated discharge place: home A total of 25 minutes was spent on the care of this complex patient more than 50% of the time was spent in counseling and care coordination. Objective - Vital Signs Vital signs: Vital Signs Temp 97.8 F 04/13/20 08:16 Pulse 94 04/13/20 08:27 Resp 18 04/13/20 08:27 BP 114/98 04/13/20 08:16 Pulse Ox 94 L 04/13/20 08:27 Intake & Output 04/12/20 04/13/20 04/13/20 18:59 06:59 18:59 Intake Total 480 150 810 Output Total 450 1600 Balance 30 -1450 810 Weight 70.6 kg Intake: IV 510 Invasive Line 4 10 Sodium Chloride 0.9% 500 500 ml 500 ml @ 999 mls/hr IV .Q31M ONE Rx#:[id number] Oral 480 150 300 Output: Urine 450 1600 Other: Voiding Method Toilet Toilet Urinal Urinal # Voids 1 - Labs CBC & Chem 7: 04/13/20 05:59 04/13/20 05:59 Labs: Abnormal Lab Results - Last 24 Hours (Table) 04/13/20 04/13/20 04/13/20 Range/Units 05:59 05:59 05:59 WBC 3.4 L (3.8-10.6) k/uL RBC 2.90 L (4.30-5.90) m/uL Hgb 9.0 L (13.0-17.5) gm/dL Hct 27.8 L (39.0-53.0) % Plt Count 134 L (150-450) k/uL Sodium 128 L (137-145) mmol/L Chloride 95 L (98-107) mmol/L Osmolality 270 L (280-301) mosm/kg
[2020-04-13 11:48] LABS: African American GFR (CKD) >90 (>60 ml/min/1.73 sqM); Anion Gap 5 mmol/L; Blood Urea Nitrogen 14 mg/dL (9-20); Calcium 8.6 mg/dL (8.4-10.2); Carbon Dioxide 27 mmol/L (22-30); Chloride 96 mmol/L (98-107); Glucose 116 mg/dL (74-99); Non-African American GFR(CKD) >90 (>60 ml/min/1.73 sqM); Potassium 4.1 mmol/L (3.5-5.1); Sodium 128 mmol/L (137-145)
[2020-04-14 06:20] LABS: HGB 8.3 gm/dL (13.0-17.5); MCH 30.7 pg (25.0-35.0); MCHC 31.9 g/dL (31.0-37.0); MCV 96.1 fL (80.0-100.0); Mean Platelet Volume 8.2; Platelet Count 152 k/uL (150-450); RBC 2.71 m/uL (4.30-5.90); RDW 14.8 % (11.5-15.5)
[2020-04-14 06:22] LABS: Carbon Dioxide 30 mmol/L (22-30); Chloride 97 mmol/L (98-107); Glucose 108 mg/dL (74-99); Sodium 131 mmol/L (137-145)
[2020-04-14 06:23] LABS: African American GFR (CKD) >90 (>60 ml/min/1.73 sqM); Anion Gap 4 mmol/L; Blood Urea Nitrogen 13 mg/dL (9-20); Calcium 8.6 mg/dL (8.4-10.2); Non-African American GFR(CKD) >90 (>60 ml/min/1.73 sqM)
--- NOTE | 2020-04-14 08:47 | P.PN ---
Subjective Progress Note Date: 04/14/20 Principal diagnosis: Recurrent right-sided spontaneous pneumothorax. Previous medical history of spontaneous pneumothorax in March 2019 and September 2019, prostate cancer status post radiation, mantle cell lymphoma status post radiation, hypertension, previous tobacco dependence, and family history of cancer. POD #4 right-sided video-assisted thoracoscopic surgery with resection of apical blebs, mechanical pleurodesis Patient is currently sitting up in bed on the cardiac stepdown unit in no acute distress. States pain is controlled on current medication regimen, denies shortness of breath. Does complain of lack of sleep. Right pleural chest tube present to [facility] with minimal output, no air leak present. Chest x-ray this morning demonstrates basilar pneumothorax Objective - Vital Signs Vital signs: Vital Signs Temp 97.6 F 04/13/20 20:00 Pulse 86 04/14/20 04:00 Resp 18 04/14/20 04:00 BP 103/74 04/14/20 04:00 Pulse Ox 97 04/14/20 04:00 Intake & Output 04/13/20 04/14/20 04/14/20 18:59 06:59 18:59 Intake Total 1130 100 Output Total 550 700 Balance 580 -600 Weight 70.1 kg Intake: IV 530 Invasive Line 4 30 Sodium Chloride 0.9% 500 500 ml 500 ml @ 999 mls/hr IV .Q31M ONE Rx#:[id number] Oral 600 100 Output: Urine 550 700 Other: Voiding Method Toilet Toilet Urinal Urinal # Voids 2 1 - Constitutional General appearance: Present: cooperative, no acute distress - Respiratory Details: Lungs sounds diminished bilaterally with expiratory wheezes present. Respirations even, nonlabored. Currently on 2 L nasal cannula with oxygen saturation 97%. Able to achieve 1000 mL on his incentive spirometry. Right- sided pleural chest tube present to [facility], no drainage in the last 24 rickey rs, no air leak present. - Cardiovascular Details: S1, S2 present. Regular rate and rhythm, sinus rhythm on telemetry. Palpable peripheral pulses bilaterally. No edema present. No calf pain or tenderness noted. - Gastrointestinal Gastrointestinal Comment(s): Abdomen soft, nontender, nondistended. Active bowel sounds present 4 quadrants. Tolerating diet. - Genitourinary Genitourinary Comment(s): Continues to void - Integumentary Integumentary Comment(s): Skin is warm and dry with evidence of good perfusion. - Neurologic Neurologic: Present: CNII-XII intact - Musculoskeletal Musculoskeletal: Present: gait normal, strength equal bilaterally - Psychiatric Psychiatric: Present: A&O x's 3, appropriate affect, intact judgment & insight - Allied health notes Allied health notes reviewed: nursing - Labs CBC & Chem 7: 04/14/20 05:47 04/14/20 05:47 Labs: Abnormal Lab Results - Last 24 Hours (Table) 04/13/20 04/13/20 04/14/20 Range/Units 05:59 11:12 05:47 WBC 3.0 L (3.8-10.6) k/uL RBC 2.71 L (4.30-5.90) m/uL Hgb 8.3 L (13.0-17.5) gm/dL Hct 26.0 L (39.0-53.0) % Sodium 128 L (137-145) mmol/L Chloride 96 L (98-107) mmol/L Creatinine 0.65 L (0.66-1.25) mg/dL Glucose 116 H (74-99) mg/dL Osmolality 270 L (280-301) mosm/kg 04/14/20 Range/Units 05:47 WBC (3.8-10.6) k/uL RBC (4.30-5.90) m/uL Hgb (13.0-17.5) gm/dL Hct (39.0-53.0) % Sodium 131 L (137-145) mmol/L Chloride 97 L (98-107) mmol/L Creatinine (0.66-1.25) mg/dL Glucose 108 H (74-99) mg/dL Osmolality (280-301) mosm/kg - Imaging and Cardiology Chest x-ray: image reviewed Assessment and Plan Assessment: 1. Recurrent right-sided spontaneous pneumothorax, status post VATS with resection of blebs and mechanical pleurodesis 2. History of prostate cancer diagnosed in 2017 status post radiation 3. 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 Hypertension 5. Previous tobacco dependence, quit March 2019 6. Family history of cancer 7. Leukopenia, expected as patient recently finished radiation Plan: 1. Will pull back the patient's chest tube and reconnect him to suction to hopefully resolve his pneumothorax. Will monitor daily x-rays. 2. Encourage continued incentive spirometry use 3. Increase activity as tolerated. 4. Continue pain control with current medication regimen 5. Medical management of other comorbidities per primary care service 6. More recommendations to follow Time with Patient: Greater than 30
--- NOTE | 2020-04-14 08:57 | XR ---
EXAMINATION TYPE: XR chest 2V DATE OF EXAM: 04/14/2020 CLINICAL HISTORY: Pneumothorax follow-up TECHNIQUE: Frontal and lateral views of the chest are obtained. COMPARISON: 04/13/2020 chest radiograph FINDINGS: Right-sided chest tube with distal tip over the lung apex. Redemonstrated right basilar hy dropneumothorax, with minimally increased pneumothorax component at the right mid lung versus 0. The lungs are hyperinflated with redemonstrated diffuse interstitial prominence. The cardiomediast inal silhouette is within normal limits for size. IMPRESSION: Right-sided apical chest tube. Right basilar moderate hydropneumothorax redemonstrated, w ith minimally increased pneumothorax component at the right mid lung versus 04/13/2020.
[2020-04-14] MEDS: lisinopriL 20 MG TAB PO SCH ×2 (08:59→19:50)
[2020-04-14] MEDS: HEPARIN SODIUM,PORCINE 5,000 UNIT/ML 1 ML VIAL SQ SCH ×3 (08:59→23:27)
[2020-04-14] MEDS: HYDROcodone/APAP 5-325MG 1 EACH TAB PO PRN ×3 (08:59→23:27)
[2020-04-14] MEDS ORDERED: LIDOCAINE 2% INJ 20 MG/ML (20 ML MDV) ONE (09:04)
--- NOTE | 2020-04-14 10:22 | P.PN ---
Subjective Progress Note Date: 04/14/20 Principal diagnosis: shortness of breath Patient is a 79-year-old male with hypertension, BPH, mantle cell lymphoma, and prostate cancer who presented to the emergency room as a transfer from [place] secondary to sudden onset right chest pain or shortness of breath. She was found have a large right-sided pneumothorax with mediastinal shift to the left. He has a chest tube placed with resolution of the mediastinal shift. Initial laboratory analysis demonstrated an increased creatinine consistent with dehydration. He was admitted and CT surgery was consulted. Initially conservative management was attempted with chest tube placement. CT chest 04/05 which showed a tiny right-sided pneumothorax with emphysematous changes and multiple blebs. He failed conservative management of chest tube. He ultimately underwent a VATS on 04/10 with resection of apical blebs and mechanical pleurodesis. Patient seen and examined at bedside. Still feeling shaky in the morning, no chest pain, no shortness of breath, no leaking from around the chest tube, no nausea, no vomiting. General: non toxic, no distress, appears at stated age Derm: warm, dry Head: atraumatic, normocephalic, symmetric Eyes: EOMI, no lid lag, anicteric sclera Mouth: no lip lesion, mucus membranes moist Cardiovascular: S1S2 reg, no murmur, positive posterior tibial pulse bilateral, Lungs: Rhonchi right base, no accessory muscle use, chest tube in place Abdominal: soft, nontender to palpation, no guarding, no appreciable organomegaly Ext: no gross muscle atrophy, no edema, no contractures Neuro: CN II-XI grossly intact, no focal neuro deficits Psych: Alert, oriented, appropriate affect Tension pneumothorax status post chest tube, status post VATS -Chest tube in place. Management per CT surgery -Pain control -Pulmonary hygiene Hyponatremia, improving - suspect due to decreased oral intake - encourage oral intake - repeat in AM Hypertension - Lisinopril - Controlled Anemia -Was present prior to surgery, undetermined etiology but likely related to chronic bone marrow suppression secondary to cancer -Check iron studies -Follow CBC -Hemoglobin currently stable and will defer to outpatient workup. Thrombocytopenia, improved -Also suspect chronic in nature -Follow CBC -Further outpatient evaluation Prior tobacco abuse-quit March 2019 History of mantle cell lymphoma and prostate cancer DVT prophylaxis: Heparin Discussed with: patient, nursing Anticipated discharge: in AM Anticipated discharge place: home A total of 25 minutes was spent on the care of this complex patient more than 50% of the time was spent in counseling and care coordination. Objective - Vital Signs Vital signs: Vital Signs Temp 97.7 F 04/14/20 08:59 Pulse 95 04/14/20 08:59 Resp 18 04/14/20 09:10 BP 121/71 04/14/20 08:59 Pulse Ox 94 L 04/14/20 09:10 Intake & Output 04/13/20 04/14/20 04/14/20 18:59 06:59 18:59 Intake Total 1130 100 10 Output Total 550 700 Balance 580 -600 10 Weight 70.1 kg Intake: IV 530 10 Invasive Line 4 30 10 Sodium Chloride 0.9% 500 500 ml 500 ml @ 999 mls/hr IV .Q31M ONE Rx#:[id number] Oral 600 100 Output: Urine 550 700 Other: Voiding Method Toilet Toilet Urinal Urinal # Voids 2 1 - Labs CBC & Chem 7: 04/14/20 05:47 04/14/20 05:47 Labs: Abnormal Lab Results - Last 24 Hours (Table) 04/13/20 04/14/20 04/14/20 Range/Units 11:12 05:47 05:47 WBC 3.0 L (3.8-10.6) k/uL RBC 2.71 L (4.30-5.90) m/uL Hgb 8.3 L (13.0-17.5) gm/dL Hct 26.0 L (39.0-53.0) % Sodium 128 L 131 L (137-145) mmol/L Chloride 96 L 97 L (98-107) mmol/L Creatinine 0.65 L (0.66-1.25) mg/dL Glucose 116 H 108 H (74-99) mg/dL
--- NOTE | 2020-04-14 11:28 | XR ---
EXAMINATION TYPE: XR chest 1V portable DATE OF EXAM: 04/14/2020 CLINICAL HISTORY: Repositioning of chest tube. TECHNIQUE: Portable upright view of the chest obtained. COMPARISON: 04/14/2020 chest radiograph at 7:34 AM. FINDINGS: Interval retraction of right-sided chest tube with distal tip overlying the right mid uppe r lung, and side-port overlying the right lateral chest. The right basilar hydropneumothorax demonstr ates interval decrease in size of the pleural effusion component, now filled with air at the right he midiaphragm. The small right mid lung pneumothorax component is unchanged. The cardiomediastinal silh ouette is unchanged. IMPRESSION: Interval retraction of right-sided chest tube, with distal tip now overlying the mid to u pper lung. There is overall unchanged size of the right basilar hydropneumothorax, however with decre ased pleural effusion component status post retraction of chest tube. The right mid lung pneumothorax component is unchanged versus 7:34 AM comparison.
[2020-04-14] MEDS: BENZOCAINE/MENTHOL LOZENG 1 EACH LOZENGE MUCOUS MEM PRN (19:21)
[2020-04-15] MEDS: HYDROcodone/APAP 5-325MG 1 EACH TAB PO PRN ×5 (04:32→20:20)
[2020-04-15 06:54] LABS: HCT 26.7 % (39.0-53.0); HGB 8.6 gm/dL (13.0-17.5); MCH 31.2 pg (25.0-35.0); MCHC 32.3 g/dL (31.0-37.0); MCV 96.6 fL (80.0-100.0); Mean Platelet Volume 8.3; Platelet Count 180 k/uL (150-450); RBC 2.76 m/uL (4.30-5.90); RDW 14.6 % (11.5-15.5)
[2020-04-15 07:36] LABS: African American GFR (CKD) >90 (>60 ml/min/1.73 sqM); Anion Gap 6 mmol/L; Blood Urea Nitrogen 10 mg/dL (9-20); Calcium 8.9 mg/dL (8.4-10.2); Carbon Dioxide 31 mmol/L (22-30); Chloride 96 mmol/L (98-107); Glucose 105 mg/dL (74-99); Non-African American GFR(CKD) >90 (>60 ml/min/1.73 sqM); Sodium 133 mmol/L (137-145)
--- NOTE | 2020-04-15 07:50 | XR ---
EXAMINATION TYPE: XR chest 1V portable DATE OF EXAM: 04/15/2020 Comparison: 04/14/2020 Clinical History: 79-year-old male pneumothorax Findings: Heart normal size. Atherosclerotic arch calcifications. Hyperinflation. Post surgical change right ap ex with some stable lines and suspected underlying blebs. Right-sided chest tube in place. Moderate-s ized right basilar pneumothorax redemonstrated, estimated at 30%. Relatively unchanged. Small right p leural effusion persists. Impression: Overall stable COPD with postsurgical change at the right apex, right-sided chest tube, and moderate- sized right basilar pneumothorax estimated at 30% with small effusion.
[2020-04-15] MEDS: HEPARIN SODIUM,PORCINE 5,000 UNIT/ML 1 ML VIAL SQ SCH ×2 (07:56→15:36)
[2020-04-15] MEDS: lisinopriL 20 MG TAB PO SCH ×2 (07:56→20:19)
--- NOTE | 2020-04-15 08:29 | P.PN ---
Subjective Progress Note Date: 04/15/20 Principal diagnosis: Recurrent right-sided spontaneous pneumothorax. Previous medical history of spontaneous pneumothorax in March 2019 and September 2019, prostate cancer status post radiation, mantle cell lymphoma status post radiation, hypertension, previous tobacco dependence, and family history of cancer. POD #5 right-sided video-assisted thoracoscopic surgery with resection of apical blebs, mechanical pleurodesis Patient is currently sitting up in bed on the cardiac stepdown unit in no acute distress. States pain is controlled on current medication regimen, denies shortness of breath. Does continue to complain of lack of sleep. Right pleural chest tube present to continuous wall suction with minimal output, no air leak present. Chest x-ray this morning demonstrates continued basilar pneumothorax despite pull back of chest tube from 20 cm to 6 cm and re-application of suction with initial burst of air leak. Patient very frustrated with hospitalization a nd lack of sleep Objective - Vital Signs Vital signs: Vital Signs Temp 98.1 F 04/14/20 20:00 Pulse 96 04/15/20 04:00 Resp 18 04/15/20 04:00 BP 134/78 04/15/20 04:00 Pulse Ox 93 L 04/15/20 04:00 Intake & Output 04/14/20 04/15/20 04/15/20 18:59 06:59 18:59 Intake Total 566 30 Output Total 350 Balance 566 -320 Weight 70.5 kg Intake: IV 30 30 Invasive Line 4 30 30 Oral 536 Output: Urine 350 Other: Voiding Method Toilet Toilet Urinal Urinal # Voids 3 - Constitutional General appearance: Present: cooperative, no acute distress - Respiratory Details: Lungs sounds diminished bilaterally. Respirations even, nonlabored. Currently on 2 L nasal cannula with oxygen saturation 93%. Able to achieve 1000 mL on his incentive spirometry. Right-sided pleural chest tube present to continuous wall suction, no drainage in the last 24 hours, no air leak present. - Cardiovascular Details: S1, S2 present. Regular rate and rhythm, sinus rhythm on telemetry. Palpable peripheral pulses bilaterally. No edema present. No calf pain or tenderness noted. - Gastrointestinal Gastrointestinal Comment(s): Abdomen soft, nontender, nondistended. Active bowel sounds present 4 quadrants. Tolerating diet. - Genitourinary Genitourinary Comment(s): Continues to void - Integumentary Integumentary Comment(s): Skin is warm and dry with evidence of good perfusion. - Neurologic Neurologic: Present: CNII-XII intact - Musculoskeletal Musculoskeletal: Present: gait normal, strength equal bilaterally - Psychiatric Psychiatric: Present: A&O x's 3, appropriate affect, intact judgment & insight - Allied health notes Allied health notes reviewed: nursing - Labs CBC & Chem 7: 04/15/20 06:33 04/15/20 06:33 Labs: Abnormal Lab Results - Last 24 Hours (Table) 04/15/20 04/15/20 Range/Units 06:33 06:33 WBC 3.0 L (3.8-10.6) k/uL RBC 2.76 L (4.30-5.90) m/uL Hgb 8.6 L (13.0-17.5) gm/dL Hct 26.7 L (39.0-53.0) % Sodium 133 L (137-145) mmol/L Chloride 96 L (98-107) mmol/L Carbon Dioxide 31 H (22-30) mmol/L Glucose 105 H (74-99) mg/dL - Imaging and Cardiology Chest x-ray: image reviewed Assessment and Plan Assessment: 1. Recurrent right-sided spontaneous pneumothorax, status post VATS with resection of blebs and mechanical pleurodesis 2. History of prostate cancer diagnosed in 2017 status post radiation 3. 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 Hypertension 5. Previous tobacco dependence, quit March 2019 6. Family history of cancer 7. Leukopenia, expected as patient recently finished radiation Plan: 1. Will pull CT back to 3 cm, reconnect to suction and repeat CXR. If basilar PTX resolves or only minimal with no air leak will discontinue chest tube. 2. Wean oxygen as tolerated. Encourage continued incentive spirometry use 3. Increase activity as tolerated. 4. Continue pain control with current medication regimen 5. Medical management of other comorbidities per primary care service 6. More recommendations to follow Time with Patient: Greater than 30
--- NOTE | 2020-04-15 09:38 | XR ---
EXAMINATION TYPE: XR chest 1V portable DATE OF EXAM: 04/15/2020 Comparison: 02/26/2020 Clinical History: 79-year-old male pull back CT, basilar PTX Findings: Exam is overall unchanged with a right-sided basilar hydropneumothorax and moderate sized pneumothora x component estimated at 30% and a small pleural effusion component. Background of COPD. Post surgica l change of the right apex. The right-sided chest tube has been pulled back slightly. The chest tube sidehole is near the pleural margin now. Some mild subcutaneous emphysema remains along the right reshma e of the chest. Heart size stable, within normal limits. Impression: Aside from the chest tube being pulled back slightly (chest tube sidehole now near the lateral pleura l margin), exam is relatively unchanged with a right basilar hydropneumothorax with similar 30% pneum othorax component.
[2020-04-15] MEDS ORDERED: MELATONIN 5 MG TABLET PO PRN (09:41)
--- NOTE | 2020-04-15 09:49 | P.PN ---
Subjective Progress Note Date: 04/15/20 Principal diagnosis: shortness of breath Patient is a 79-year-old male with hypertension, BPH, mantle cell lymphoma, and prostate cancer who presented to the emergency room as a transfer from [place] secondary to sudden onset right chest pain or shortness of breath. She was found have a large right-sided pneumothorax with mediastinal shift to the left. He has a chest tube placed with resolution of the mediastinal shift. Initial laboratory analysis demonstrated an increased creatinine consistent with dehydration. He was admitted and CT surgery was consulted. Initially conservative management was attempted with chest tube placement. CT chest 04/05 which showed a tiny right-sided pneumothorax with emphysematous changes and multiple blebs. He failed conservative management of chest tube. He ultimately underwent a VATS on 04/10 with resection of apical blebs and mechanical pleurodesis. He had continued pneumothorax and chest tube has been readjusted. Patient seen and examined at bedside. Did not feel well. Pain well controlled on current medications. Breathing stable. Still having difficulty swallowing dry food due to prior radiation to the chest. General: non toxic, no distress, appears at stated age Derm: warm, dry Head: atraumatic, normocephalic, symmetric Eyes: EOMI, no lid lag, anicteric sclera Mouth: no lip lesion, mucus membranes moist Cardiovascular: S1S2 reg, no murmur, positive posterior tibial pulse bilateral, Lungs: Decreased bs bilateral, no accessory muscle use, chest tube in place Abdominal: soft, nontender to palpation, no guarding, no appreciable organomegaly Ext: no gross muscle atrophy, no edema, no contractures Neuro: CN II-XI grossly intact, no focal neuro deficits Psych: Alert, oriented, appropriate affect Tension pneumothorax status post chest tube, status post VATS -Chest tube in place. Management per CT surgery. They have pulled back chest tube plan is repeat CXR if unchanged will pull the tube and see how he does. -Pain control -Pulmonary hygiene Hyponatremia, improving - suspect due to decreased oral intake - encourage oral intake - repeat in AM Hypertension - Lisinopril - Controlled Insomnia - melatonin Anemia -Was present prior to surgery, undetermined etiology but likely related to chronic bone marrow suppression secondary to cancer -iron studies pending -Follow CBC -Hemoglobin currently stable and will defer to outpatient workup. Thrombocytopenia, resolved Prior tobacco abuse-quit March 2019 History of mantle cell lymphoma and prostate cancer DVT prophylaxis: Heparin Discussed with: patient, nursing Anticipated discharge: in AM Anticipated discharge place: home A total of 25 minutes was spent on the care of this complex patient more than 50% of the time was spent in counseling and care coordination. Objective - Vital Signs Vital signs: Vital Signs Temp 98.6 F 04/15/20 07:46 Pulse 93 04/15/20 07:46 Resp 18 04/15/20 07:54 BP 128/84 04/15/20 07:46 Pulse Ox 94 L 04/15/20 07:46 Intake & Output 04/14/20 04/15/20 04/15/20 18:59 06:59 18:59 Intake Total 566 30 130 Output Total 350 Balance 566 -320 130 Weight 70.5 kg Intake: IV 30 30 10 Invasive Line 4 30 30 10 Oral 536 120 Output: Urine 350 Other: Voiding Method Toilet Toilet Toilet Urinal Urinal Urinal # Voids 3 - Labs CBC & Chem 7: 04/15/20 06:33 04/15/20 06:33 Labs: Abnormal Lab Results - Last 24 Hours (Table) 04/15/20 04/15/20 Range/Units 06:33 06:33 WBC 3.0 L (3.8-10.6) k/uL RBC 2.76 L (4.30-5.90) m/uL Hgb 8.6 L (13.0-17.5) gm/dL Hct 26.7 L (39.0-53.0) % Sodium 133 L (137-145) mmol/L Chloride 96 L (98-107) mmol/L Carbon Dioxide 31 H (22-30) mmol/L Glucose 105 H (74-99) mg/dL
--- NOTE | 2020-04-15 13:56 | XR ---
EXAMINATION TYPE: XR chest 1V DATE OF EXAM: 04/15/2020 COMPARISON: Earlier today HISTORY: 79-year-old male dyspnea, low oxygen saturation, chest tube, shortness of breath TECHNIQUE: Single frontal view of the chest is obtained. FINDINGS: Redemonstrated COPD and postsurgical changes at the right apex. Right-sided chest tube redemonstrated . Redemonstrated moderate-sized right basilar pneumothorax. Estimated at 30%. Underlying small effusi on. Leftward patient rotation. There may be slightly greater degree of shift of the heart towards the left compared to the exam earlier today. This appearance may be secondary to slight leftward rotatio n. IMPRESSION: 1. Redemonstrated moderate, 30% right basilar pneumothorax with chest tube in place. The appearance o f slight leftward shift of the heart may be due to leftward patient rotation. Recommend close clinica l surveillance to exclude early tension. 2. Continued small right effusion.
[2020-04-15 17:27] LABS: % Iron Saturation 15.87 (15.00-50.00); Iron 33 ug/dL (65-175); Total Iron Binding Capacity 208 ug/dL (228-460)
[2020-04-15 17:35] LABS: Ferritin 621.3 ng/mL (22.0-322.0)
[2020-04-15] MEDS: BENZOCAINE/MENTHOL LOZENG 1 EACH LOZENGE MUCOUS MEM PRN (19:52)
[2020-04-16] MEDS: HEPARIN SODIUM,PORCINE 5,000 UNIT/ML 1 ML VIAL SQ SCH ×4 (00:12→23:38)
--- NOTE | 2020-04-16 07:02 | XR ---
EXAMINATION TYPE: XR chest 1V portable DATE OF EXAM: 04/16/2020 CLINICAL HISTORY: Difficulty breathing and pneumothorax progress study. TECHNIQUE: Two AP portable upright views of the chest are obtained. COMPARISON: Chest x-ray from one day earlier and older studies. FINDINGS: Stable right basilar pneumothorax despite midlung chest tube placement. Background chronic emphysematous change with peripheral fibrosis in the right lung. Right basilar atelectasis redemonst rated. Left lung remains clear. Persistent small right pleural fluid collection. Persistent right bas ilar subcutaneous emphysema is improving. Cardiac silhouette size stable and within normal limits. At herosclerotic thoracic aorta redemonstrated. Osseous structures are intact. IMPRESSION: Stable small to moderate-sized right basilar hydropneumothorax despite chest tube in plac e. Background chronic emphysematous and pulmonary fibrotic changes redemonstrated. No significant int erval change.
[2020-04-16] MEDS: lisinopriL 20 MG TAB PO SCH ×2 (08:17→19:50)
--- NOTE | 2020-04-16 09:05 | P.PN ---
Subjective Progress Note Date: 04/16/20 Principal diagnosis: Recurrent right-sided spontaneous pneumothorax. Past medical history significant for spontaneous right pneumothorax in March 2019 and September 2019, prostate cancer status post radiation, mantle cell lymphoma status post radiation, hypertension, previous tobacco dependence, and family history of cancer. POD #6 right-sided video-assisted thoracoscopic surgery with resection of apical blebs, mechanical pleurodesis. The patient was seen in follow-up today 04/16/2020 at his bedside on the cardiac stepdown unit. He is sitting up to the bedside edge, awake, alert and oriented 3. Denies any complaints of shortness of breath or pain at this time. Right pleural chest tube remains in place to continuous low wall suction at -20 cm H2O. Intermittent air leak is present. Draining thin serosanguineous drainage with 140 mL output in the last 24 hours. Chest x-ray this morning remains to demonstrate a right basilar hydropneumothorax despite the chest tube remaining in place. The patient is anxious to be discharged home and is verbalizing some frustration. Oxygen saturation is 95% on 3 L nasal cannula and he is achieving 600 mL on his incentive spirometry. Objective - Vital Signs Vital signs: Vital Signs Temp 97.6 F 04/16/20 00:00 Pulse 89 04/16/20 04:00 Resp 20 04/16/20 04:00 BP 156/84 04/16/20 04:00 Pulse Ox 95 04/16/20 04:00 Intake & Output 04/15/20 04/16/20 04/16/20 18:59 06:59 18:59 Intake Total 660 130 240 Output Total 850 200 Balance -190 -70 240 Weight 70 kg Intake: IV 30 30 Invasive Line 4 30 30 Oral 630 100 240 Output: Urine 850 200 Other: Voiding Method Toilet Toilet Urinal Urinal # Voids 1 1 - Constitutional General appearance: Present: average body habitus, cooperative, no acute distress - EENT Eyes: Present: PERRLA. Absent: scleral icterus ENT: Present: hearing grossly normal - Neck Details: Neck is supple, no JVD, no lymphadenopathy. - Respiratory Details: Lung sounds with expiratory wheezes throughout, diminished to his right lower lobe. No crackles or rhonchi. Respirations are symmetrical and nonlabored. Oxygen saturation is 95% on 3 L nasal cannula. Achieving 600 mL on his incentive spirometry. Right pleural chest tube remains in place to low contin uous wall suction -20 cm H2O. Intermittent air leak is present. Draining thin serosanguineous drainage with 140 mL output in the last 24 hours. Productive cough with thick tenacious pradhan colored sputum. - Cardiovascular Details: Regular rhythm and rate. S1 and S2 present, negative for S3, gallop or murmur. Remote telemetry showing sinus tachycardia with occasional PACs heart rate 106 BPM. - Gastrointestinal Gastrointestinal Comment(s): Abdomen is soft, nontender and nondistended. Active bowel sounds present all 4 abdominal quadrants. No guarding or rigidity. Tolerating oral intake. Passing flatus. - Genitourinary Genitourinary Comment(s): Continues to void. - Integumentary Integumentary Comment(s): Skin is warm and dry. No clubbing or cyanosis is present. Right thoracoscopic incision sites clean, dry and approximated. No drainage or redness is present. Dressing is clean, dry and intact to his right pleural chest tube insertion site. - Neurologic Neurologic: Present: CNII-XII intact - Musculoskeletal Musculoskeletal: Present: gait normal, generalized weakness, strength equal bilaterally - Psychiatric Psychiatric: Present: A&O x's 3, appropriate affect, intact judgment & insight - Allied health notes Allied health notes reviewed: nursing - Labs CBC & Chem 7: 04/15/20 06:33 04/15/20 06:33 Labs: Abnormal Lab Results - Last 24 Hours (Table) 04/15/20 Range/Units 06:33 Iron 33 L (65-175) ug/dL TIBC 208 L (228-460) ug/dL Ferritin 621.3 H (22.0-322.0) ng/mL - Imaging and Cardiology Chest x-ray: report reviewed, image reviewed Assessment and Plan Assessment: 1. Recurrent right-sided spontaneous pneumothorax, status post VATS with resection of blebs and mechanical pleurodesis 2. History of prostate cancer diagnosed in 2017 status post radiation 3. 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 Hypertension 5. Previous tobacco dependence, quit March 2019 6. Family history of cancer 7. Leukopenia, expected as patient recently finished radiation Plan: 1. Continue right pleural chest tube to low continuous wall suction -20 cm H2O. Continue to monitor for airleak/pneumothorax resolution. 2. Wean oxygen as tolerated. Encourage continued incentive spirometry use 10 times every hour while awake. 3. Increase activity as tolerated. 4. Continue pain control with current medication regimen. 5. Medical management of other comorbidities per primary care service. 6. Surgical pathology results showed lung right apical wedge resection, benign lung parenchyma with subpleural bullous cyst formation, fibrosis, mild chronic pleuritis, emphysematous changes, respiratory bronchiolitis, and anthracotic pi gment disposition. Right parietal pleura showed a 9 fiber adipose tissue with dense hyalinizing fibrosis/scar and chronic inflammation. 7. More recommendations to follow based on patient's clinical course. Time with Patient: Greater than 30
[2020-04-16] MEDS: HYDROcodone/APAP 5-325MG 1 EACH TAB PO PRN ×3 (15:26→23:38)
--- NOTE | 2020-04-16 17:10 | P.PN ---
Subjective Progress Note Date: 04/16/20 Patient is doing well today. He said that he slipped a bit better last night. He denies any shortness of breath or chest pain. Objective - Vital Signs Vital signs: Vital Signs Temp 97.9 F 04/16/20 11:44 Pulse 90 04/16/20 16:00 Resp 16 04/16/20 16:00 BP 136/86 04/16/20 16:00 Pulse Ox 98 04/16/20 16:00 Intake & Output 04/15/20 04/16/20 04/16/20 18:59 06:59 18:59 Intake Total 660 130 480 Output Total 850 200 690 Balance -190 -70 -210 Weight 70 kg Intake: IV 30 30 Invasive Line 4 30 30 Oral 630 100 480 Output: Chest Tube Drainage 90 Right Mid-Axillary Chest 90 Urine 850 200 600 Other: Voiding Method Toilet Toilet Urinal Urinal # Voids 1 1 1 # Bowel Movements 2 - Exam General: The patient is awake and alert, in no distress Eye: there is normal conjunctiva bilaterally. Neck: The neck is supple, there is no JVD. Cardiovascular: Normal S1-S2, no S3-S4, no murmurs. Respiratory: Lungs clear to auscultation bilaterally Gastrointestinal: Abdomen is soft, nontender Musculoskeletal: There is no pedal edema. Neurological:. Speech is normal. Skin: Skin is warm and dry - Labs CBC & Chem 7: 04/15/20 06:33 04/15/20 06:33 Labs: Abnormal Lab Results - Last 24 Hours (Table) 04/15/20 Range/Units 06:33 Iron 33 L (65-175) ug/dL TIBC 208 L (228-460) ug/dL Ferritin 621.3 H (22.0-322.0) ng/mL Assessment and Plan Assessment: This is a 79-year-old male with past medical history noted below who presented to the emergency room with worsening right-sided chest pain and shortness of breath. Patient was evaluated at [place] [facility] and transferred to our hospital for admission for further management of his medical problems noted below. Spontaneous right-sided thorax, third episode since last year. Status post ch est tube insertion, status post VATS procedure -CT surgery following closely and managing, serial x-ray as ordered -CT of the chest on 04/05 showed tiny right pneumothorax with bilateral emphysematous changes -Pain control -Pulmonary hygiene History of mantle cell lymphoma and prostate cancer Hypertension -Continue with home med lisinopril Tobacco abuse -Counseled on the importance of cessation during this admission DVT prophylaxis -Heparin subq
[2020-04-16] MEDS: BENZOCAINE/MENTHOL LOZENG 1 EACH LOZENGE MUCOUS MEM PRN (17:45)
--- NOTE | 2020-04-16 22:23 | CT ---
EXAMINATION TYPE: CT chest wo con DATE OF EXAM: 04/16/2020 COMPARISON: 04/05/2020 HISTORY: PNEUMOTHORAX CT DLP: 344.4 mGycm, Automated exposure control for dose reduction was used. CONTRAST: Performed injected with 0 mL of Isovue 300. TECHNIQUE: Axial images were obtained at 5 mm thick sections. Reconstructed images are reviewed on [employer] computer in the coronal plane. FINDINGS: There is some scarring at the right apex. There is a moderate pneumothorax present. Thick pleural mar gin is present anteriorly. Fluid is within the posterior hemithorax. Chest tube enters the posterior lateral right mid chest and is adjacent to lung. Little of the chest tube length is within the thoracic cavity and is not within the area of pneumothorax or hydrothorax. Length within the chest is approximately 6 cm. No enlarged mediastinal or hilar adenopathy is evident. The ascending aorta diameter at the level o f the main pulmonary artery is 3.5 cm. The main pulmonary artery diameter at the bifurcation is 3.[address] sections are obtained through the upper abdomen. Abdomen is essentially unremarkable. IMPRESSIONS: 1. Hydropneumothorax moderate size remains present. 2. Approximately 6 cm of chest tube tip is within the posterior right thoracic cavity and is pressed against the posterior chest wall by aerated lung in tip is not within the pneumothorax or hydrothorax portion. A [place] critical message alert has been initiated for Lisa Higgins MD via the [employer] on 04/16/2020 10:21 PM. This message alert has been sent to Lisa Higgins MD via [employer] preferences provided by the clinician for the receipt of Radiology Critical Findings. Message ID [id number].
--- NOTE | 2020-04-17 00:23 | P.EN ---
notified ,and reviewed results of CT of the chest, dicussed with RN , who told me there were plans to replace the chest tube in AM. patient resting comfortably, RN to notify cardiothoracic surgery regarding results of CT.
[2020-04-17] MEDS: HYDROcodone/APAP 5-325MG 1 EACH TAB PO PRN ×4 (04:43→21:47)
--- NOTE | 2020-04-17 07:50 | XR ---
EXAMINATION TYPE: XR chest 1V portable DATE OF EXAM: 04/17/2020 Comparison: 04/16/2020 Clinical History: 79-year-old male pneumothorax Findings: Redemonstrated post surgical change of the right apex. Probable 4.2 cm pneumatocele peripheral right midlung. COPD changes. Heart upper limits of normal in size. Continued moderate right basilar pneumothorax with chest tube i n place. Trace right effusion also present. Exam not significantly changed from prior. Impression: Overall stable exam with right-sided chest tube in place and moderate-sized right basilar pneumothora x estimated at 40% when correlated with recent CT.
--- NOTE | 2020-04-17 08:08 | P.PN ---
Subjective Progress Note Date: 04/17/20 Principal diagnosis: Recurrent right-sided spontaneous pneumothorax. Past medical history significant for spontaneous right pneumothorax in March 2019 and September 2019, prostate cancer status post radiation, mantle cell lymphoma status post radiation, hypertension, previous tobacco dependence, and family history of cancer. POD #7 right-sided video-assisted thoracoscopic surgery with resection of apical blebs, mechanical pleurodesis. The patient was seen in follow-up today 04/17/2020 at his bedside on the cardiac stepdown unit. He is laying in bed with his head elevated, denies any complaints of pain and currently denies any complaints of shortness of breath. Oxygen saturation are 96% on 3 L nasal cannula and he is achieving 600 mL on his incentive spirometry. Right pleural chest tube remains in place to low continuous wall suction -20 cm H2O. Intermittent air leak is present. Draining thin serosanguineous drainage with 50 mL output last 24 hours. A computed tomography scan of his chest without contrast was completed yesterday which demonstrated a moderate sized right hydropneumothorax, and a right chest tube in place within the posterior right thoracic cavity. A chest x-ray was also completed this morning which the report shows a right-sided chest tube in place and moderate sized right basilar pneumothorax estimated at 40%. The patient is scheduled this morning for a placement of a right pleural chest tube. Objective - Vital Signs Vital signs: Vital Signs Temp 97.7 F 04/17/20 04:00 Pulse 83 04/17/20 04:00 Resp 18 04/17/20 04:00 BP 135/81 04/17/20 04:00 Pulse Ox 96 04/17/20 04:00 Intake & Output 04/16/20 04/17/20 04/17/20 18:59 06:59 18:59 Intake Total 720 Output Total 690 960 Balance 30 -960 Weight 72.5 kg Intake: Oral 720 Output: Chest Tube Drainage 90 10 Right Mid-Axillary Chest 90 10 Urine 600 950 Other: Voiding Method Toilet Toilet # Voids 1 # Bowel Movements 1 - Constitutional General appearance: Present: average body habitus, cooperative, no acute distress - EENT Eyes: Present: PERRLA, normal appearance. Absent: scleral icterus ENT: Present: hearing grossly normal - Neck Details: Neck is supple, no JVD. No lymphadenopathy. - Respiratory Details: Lung sounds with few expiratory wheezes scattered throughout, diminished to his right lower lobe. Respirations are symmetrical and nonlabored. Oxygen saturation's are 96% on 3 L nasal cannula. Achieving 600 mL on his incentive spirometry. - Cardiovascular Details: Regular rhythm and rate. S1 and S2 present, negative for S3, gallop or murmur. Sequential compression devices in place to his bilateral lower extremities. No edema present. - Gastrointestinal Gastrointestinal Comment(s): Abdomen is soft, nontender and nondistended. Active bowel sounds present all 4 abdominal quadrants. No guarding or rigidity. Passing flatus. - Genitourinary Genitourinary Comment(s): Continues to void. - Integumentary Integumentary Comment(s): Skin is warm and dry. No clubbing or cyanosis is present. Right thoracoscopic incisions clean, dry and approximated. No drainage witnesses present. Dressing is clean, dry and in place to his right pleural chest tube insertion site. - Neurologic Neurologic: Present: CNII-XII intact - Musculoskeletal Musculoskeletal: Present: gait normal, generalized weakness, strength equal bilaterally - Psychiatric Psychiatric: Present: A&O x's 3, appropriate affect, intact judgment & insight - Allied health notes Allied health notes reviewed: nursing - Labs CBC & Chem 7: 04/15/20 06:33 04/15/20 06:33 - Imaging and Cardiology Chest x-ray: report reviewed, image reviewed CT scan - chest: report reviewed, image reviewed Assessment and Plan Assessment: 1. Recurrent right-sided spontaneous pneumothorax, status post VATS with resection of blebs and mechanical pleurodesis 2. History of prostate cancer diagnosed in 2017 status post radiation 3. 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 Hypertension 5. Previous tobacco dependence, quit March 2019 6. Family history of cancer 7. Leukopenia, expected as patient recently finished radiation Plan: 1. Continue right pleural chest tube to low continuous wall suction -20 cm H2O. The patient is scheduled this morning for a placement of a right pleural chest tube. 2. Wean oxygen as tolerated. Encourage continued incentive spirometry use 10 times every hour while awake. 3. Increase activity as tolerated. 4. Continue pain control with current medication regimen. 5. Medical management of other comorbidities per primary care service. 6. Patient is currently nothing by mouth for his chest tube procedure this morning. 7. More recommendations to follow based on patient's clinical course. Time with Patient: Less than 30
[2020-04-17] MEDS ORDERED: LACTATED RINGERS 1,000 ML IV ONE (09:00)
[2020-04-17] MEDS ORDERED: BUPIVACAINE (PF) 0.25% 30 ML VIAL SQ ONE ×2 (10:13)
--- NOTE | 2020-04-17 11:08 | XR ---
EXAMINATION TYPE: XR chest 1V portable DATE OF EXAM: 04/17/2020 Comparison: Earlier today Clinical History: 79-year-old male CHEST TUBE Findings: A new right-sided chest tube has been inserted. 2 chest tubes are now present on the right. There is reexpansion of the right lung. Persistent changes of COPD. Mild interstitial prominence throughout th e right lung. Heart upper limits of normal in size. Impression: 1. Interval placement of a second right-sided chest tube with reexpansion of the right lung. No resid ual pneumothorax is identified. 2. COPD. Correlate to exclude mild pulmonary vascular congestion. 3. The postsurgical changes at the right apex are not as well seen on the present exam.
--- NOTE | 2020-04-17 11:38 | P.PN ---
Subjective Patient is scheduled for replacement of chest tube today. Objective - Vital Signs Vital signs: Vital Signs Temp 98.3 F 04/17/20 10:50 Pulse 83 04/17/20 11:20 Resp 16 04/17/20 11:20 BP 139/80 04/17/20 11:20 Pulse Ox 96 04/17/20 11:20 Intake & Output 04/16/20 04/17/20 04/17/20 18:59 06:59 18:59 Intake Total 720 750 Output Total 690 960 2 Balance 30 -960 748 Weight 72.5 kg Intake: IV 750 Oral 720 Output: Chest Tube Drainage 90 10 Right Mid-Axillary Chest 90 10 Urine 600 950 Estimated Blood Loss 2 Other: Voiding Method Toilet Toilet # Voids 1 # Bowel Movements 1 - Exam General: The patient is awake and alert, in no distress Eye: there is normal conjunctiva bilaterally. Neck: The neck is supple, there is no JVD. Cardiovascular: Normal S1-S2, no S3-S4, no murmurs. Respiratory: Lungs clear to auscultation bilaterally Gastrointestinal: Abdomen is soft, nontender Musculoskeletal: There is no pedal edema. Neurological:. Speech is normal. Skin: Skin is warm and dry - Labs CBC & Chem 7: 04/15/20 06:33 04/15/20 06:33 Assessment and Plan Assessment: This is a 79-year-old male with past medical history noted below who presented to the emergency room with worsening right-sided chest pain and shortness of breath. Patient was evaluated at [place] [facility] and transferred to our hospital for admission for further management of his medical problems noted below. Spontaneous right-sided thorax, third episode since last year. Status post chest tube insertion, status post VATS procedure 04/10, status post replacement of chest tube 04/17 -CT surgery following closely and managing, serial x-ray as ordered -Pain control -Pulmonary hygiene History of mantle cell lymphoma and prostate cancer Hypertension -Continue with home med lisinopril Tobacco abuse -Counseled on the importance of cessation during this admission DVT prophylaxis -Heparin subq
[2020-04-17] MEDS: HEPARIN SODIUM,PORCINE 5,000 UNIT/ML 1 ML VIAL SQ SCH ×2 (12:06→16:41)
[2020-04-17] MEDS: lisinopriL 20 MG TAB PO SCH (12:08)
--- NOTE | 2020-04-17 16:59 | PCN ---
PROCEDURE NOTE DATE OF SURGERY: 04/17/2020 PREOPERATIVE DIAGNOSIS: Right pneumothorax. POSTOPERATIVE DIAGNOSIS: Right pneumothorax. PROCEDURE: Placement of right-sided pleural chest tubes. SURGEON: Reymundo Rodney MD. DISCHARGE PLANNER: Kee Martinez NP. ANESTHESIA: Local with IV sedation. EBL: Minimal. SPECIMENS: None. COMPLICATIONS: None. INDICATION: The patient is a 79-year-old male who underwent right VATS with bleb resection and mechanical pleurodesis approximately 1 week ago. His lung appeared to be expanded initially. Over the past several days, it has slowly collapsed. The apex appears adhesed to the chest wall. However, the basilar component has collapsed. Replacement of chest tubes was recommended. The risks, benefits, and alternatives of the procedure were discussed with the patient. All his questions were answered. Consent was obtained. PROCEDURE IN DETAIL: The patient was taken the operating room and placed supine on the operating table. IV sedation was administered. The previously placed chest tube was removed. Local anesthetic was infiltrated between the rib space. A small incision was created and dissection was carried down through subcutaneous tissue and the pleural space was entered easily. A mcarthur of air was noted. A right angle 32-Luxembourger chest tube was placed and directed toward the diaphragmatic surface. In a similar fashion, local anesthetic was infiltrated more laterally and a second incision was created. Dissection was carried down and tunneled anteriorly. The pleural space was entered bluntly. A 28-Luxembourger chest tube was placed and directed anteriorly toward the apex. Both of those chest tubes were secured to the skin using sutures. A chest x-ray was performed in the operating room, which revealed the lung to appear nearly expanded. Sterile dressings were applied. The patient appeared to tolerate the procedure well. No complications. He returned to the recovery room in stable condition. MMODL / IJN: [id number] / MTDTank
[2020-04-18] MEDS: HEPARIN SODIUM,PORCINE 5,000 UNIT/ML 1 ML VIAL SQ SCH ×3 (01:18→18:50)
[2020-04-18] MEDS: HYDROcodone/APAP 5-325MG 1 EACH TAB PO PRN ×5 (01:18→20:56)
[2020-04-18] MEDS: lisinopriL 20 MG TAB PO SCH ×3 (01:39→20:56)
[2020-04-18 06:55] LABS: Basophils % (A) 1 %; Eosinophils # (A) 0.4 k/uL (0-0.7); Eosinophils % (A) 10 %; HCT 27.6 % (39.0-53.0); HGB 8.6 gm/dL (13.0-17.5); Hypochromasia Slight; Lymphocytes # (A) 0.4 k/uL (1.0-4.8); Lymphocytes % (A) 10 %; MCH 30.9 pg (25.0-35.0); MCHC 31.2 g/dL (31.0-37.0); Mean Platelet Volume 7.6; Monocytes # (A) 0.3 k/uL (0-1.0); Monocytes % (A) 8 %; Neutrophils # (A) 2.6 k/uL (1.3-7.7); Neutrophils % (A) 69 %; Platelet Count 230 k/uL (150-450); RBC 2.79 m/uL (4.30-5.90); RDW 14.7 % (11.5-15.5); WBC 3.7 k/uL (3.8-10.6)
[2020-04-18 07:29] LABS: African American GFR (CKD) >90 (>60 ml/min/1.73 sqM); Anion Gap 4 mmol/L; Blood Urea Nitrogen 10 mg/dL (9-20); Calcium 8.5 mg/dL (8.4-10.2); Carbon Dioxide 35 mmol/L (22-30); Chloride 97 mmol/L (98-107); Glucose 91 mg/dL (74-99); Non-African American GFR(CKD) 83 (>60 ml/min/1.73 sqM); Potassium 4.3 mmol/L (3.5-5.1); Sodium 136 mmol/L (137-145)
[2020-04-18] MEDS ORDERED: LIDOCAINE INTRAPLEUR ONE ×3 (07:30)
[2020-04-18] MEDS ORDERED: TALC INTRAPLEUR ONE ×3 (07:30)
[2020-04-18] MEDS ORDERED: SODIUM CHLORIDE INTRAPLEUR ONE ×3 (07:30)
[2020-04-18] MEDS ORDERED: STERILE INTRAPLEUR ONE ×3 (07:30)
--- NOTE | 2020-04-18 07:32 | XR ---
EXAMINATION TYPE: XR chest 1V portable DATE OF EXAM: 04/18/2020 HISTORY: Shortness of breath. COMPARISON: 04/17/2020 TECHNIQUE: Single view of the chest is submitted. FINDINGS: Demonstrated are scattered senescent parenchymal change. Right basilar chest tube without pneumothorax. Interval development of xgdkz-ok-aaxmwtep sized area o f airspace consolidation right lower lobe. Consider aspiration. The heart is stable. Hilar and mediastinal structures are within normal limits. Degenerative changes are seen of the dorsal spine. IMPRESSION: 1. Right basilar chest tube without pneumothorax. Interval development of bsvwj-fz-wwepamfz sized ar ea of airspace consolidation right lower lobe. Consider aspiration.
--- NOTE | 2020-04-18 09:01 | P.PN ---
Subjective Progress Note Date: 04/18/20 Principal diagnosis: Recurrent right-sided spontaneous pneumothorax. Past medical history significant for spontaneous right pneumothorax in March 2019 and September 2019, prostate cancer status post radiation, mantle cell lymphoma status post radiation, hypertension, previous tobacco dependence, and family history of cancer. POD #1 placement of right sided pleural chest tubes. POD #8 right-sided video-assisted thoracoscopic surgery with resection of apical blebs, mechanical pleurodesis. The patient was seen in follow-up today 04/18/2020 at his bedside on the cardiac stepdown unit. He is laying in bed with his head elevated, denies any complaints of pain and or shortness of breath. Oxygen saturation are 96% on 2 L nasal cannula and he is achieving 1000 mL on his incentive spirometry. Right pleural chest tubes remain in place to low continuous wall suction -20 cm H2O. Intermittent air leak is present. Draining thin serosanguineous drainage with 410 mL output last 24 hours. The patient is still complaining of difficulty swallowing and is tolerating a pured diet. Chest x-ray was completed this morning which demonstrates right basilar chest tubes without pneumothorax. A small to moderate sized area of airspace consolidation right lower lobe. Objective - Vital Signs Vital signs: Vital Signs Temp 98.3 F 04/18/20 08:00 Pulse 97 04/18/20 08:00 Resp 18 04/18/20 08:00 BP 93/55 04/18/20 08:00 Pulse Ox 96 04/18/20 08:00 Intake & Output 04/17/20 04/18/20 04/18/20 18:59 06:59 18:59 Intake Total 990 Output Total 212 790 Balance 778 -790 Weight 74 kg Intake: IV 750 Oral 240 Output: Chest Tube Drainage 210 190 Chest Tube Posterior 190 Chest Right Posterior Chest 210 Urine 600 Estimated Blood Loss 2 Other: # Voids 0 - Constitutional General appearance: Present: average body habitus, cooperative, no acute distress - EENT Eyes: Present: PERRLA, normal appearance. Absent: scleral icterus ENT: Present: hearing grossly normal - Neck Details: Neck is supple, no JVD, no lymphadenopathy. - Respiratory Details: Lung sounds with expiratory wheezes throughout, diminished to his right lower lobe. No rhonchi or crackles present. Respirations are symmetrical and nonlabored. Oxygen saturation is 96% on 2 L nasal cannula. Achieving 1000 mL on his incentive spirometry. - Cardiovascular Details: Regular rhythm and rate. S1 and S2 present, negative for S3, gallop or murmur. Remote telemetry showing normal sinus rhythm heart rate in the 80s. No edema present. Knee-high sequential compression devices in place to his bilateral lower extremities. - Gastrointestinal Gastrointestinal Comment(s): Abdomen is soft, nontender and nondistended. Active bowel sounds present all 4 abdominal quadrants. No guarding or rigidity. No organomegaly appreciated. Tolerating oral intake in the way of pured diet. Passing flatus. - Genitourinary Genitourinary Comment(s): Continues to void. - Integumentary Integumentary Comment(s): Skin is warm and dry. No clubbing or cyanosis is present. Right chest thoracoscopy incisions clean, dry and approximated. No drainage or redness is present. - Neurologic Neurologic: Present: CNII-XII intact - Musculoskeletal Musculoskeletal: Present: gait normal, generalized weakness, strength equal bilaterally - Psychiatric Psychiatric: Present: A&O x's 3, appropriate affect, intact judgment & insight - Allied health notes Allied health notes reviewed: nursing - Labs CBC & Chem 7: 04/18/20 05:40 04/18/20 05:40 Labs: Abnormal Lab Results - Last 24 Hours (Table) 04/18/20 04/18/20 Range/Units 05:40 05:40 WBC 3.7 L (3.8-10.6) k/uL RBC 2.79 L (4.30-5.90) m/uL Hgb 8.6 L (13.0-17.5) gm/dL Hct 27.6 L (39.0-53.0) % Lymphocytes # 0.4 L (1.0-4.8) k/uL Sodium 136 L (137-145) mmol/L Chloride 97 L (98-107) mmol/L Carbon Dioxide 35 H (22-30) mmol/L - Imaging and Cardiology Chest x-ray: report reviewed, image reviewed Assessment and Plan Assessment: 1. Recurrent right-sided spontaneous pneumothorax, status post VATS with resection of blebs and mechanical pleurodesis 2. History of prostate cancer diagnosed in 2017 status post radiation 3. 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 Hypertension 5. Previous tobacco dependence, quit March 2019 6. Family history of cancer 7. Leukopenia, expected as patient recently finished radiation Plan: 1. Continue right pleural chest tube to low continuous wall suction -20 cm H2O. We will instill talc syringe with lidocaine for pleural instillation, pleurodesis today. 2. Wean oxygen as tolerated. Encourage continued incentive spirometry use 10 times every hour while awake. 3. Increase activity as tolerated. 4. Continue pain control with current medication regimen. 5. Medical management of other comorbidities per primary care service. 6. More recommendations to follow based on patient's clinical course. Time with Patient: Greater than 30
--- NOTE | 2020-04-18 10:43 | P.PN ---
Subjective Progress Note Date: 04/18/20 Patient is doing well today. He denies any chest pain or shortness of breath. Objective - Vital Signs Vital signs: Vital Signs Temp 98.3 F 04/18/20 08:00 Pulse 97 04/18/20 08:00 Resp 18 04/18/20 08:00 BP 93/55 04/18/20 08:00 Pulse Ox 96 04/18/20 08:00 Intake & Output 04/17/20 04/18/20 04/18/20 18:59 06:59 18:59 Intake Total 990 Output Total 212 790 Balance 778 -790 Weight 74 kg Intake: IV 750 Oral 240 Output: Chest Tube Drainage 210 190 Chest Tube Posterior 190 Chest Right Posterior Chest 210 Urine 600 Estimated Blood Loss 2 Other: # Voids 0 - Exam General: The patient is awake and alert, in no distress Eye: there is normal conjunctiva bilaterally. Neck: The neck is supple, there is no JVD. Cardiovascular: Normal S1-S2, no S3-S4, no murmurs. Respiratory: Lungs clear to auscultation bilaterally Gastrointestinal: Abdomen is soft, nontender Musculoskeletal: There is no pedal edema. Neurological:. Speech is normal. Skin: Skin is warm and dry - Labs CBC & Chem 7: 04/18/20 05:40 04/18/20 05:40 Labs: Abnormal Lab Results - Last 24 Hours (Table) 04/18/20 04/18/20 Range/Units 05:40 05:40 WBC 3.7 L (3.8-10.6) k/uL RBC 2.79 L (4.30-5.90) m/uL Hgb 8.6 L (13.0-17.5) gm/dL Hct 27.6 L (39.0-53.0) % Lymphocytes # 0.4 L (1.0-4.8) k/uL Sodium 136 L (137-145) mmol/L Chloride 97 L (98-107) mmol/L Carbon Dioxide 35 H (22-30) mmol/L Assessment and Plan Assessment: This is a 79-year-old male with past medical history noted below who presented to the emergency room with worsening right-sided chest pain and shortness of breath. Patient was evaluated at [facility] and transferred to our hospital for admission for further management of his medical problems noted below. Spontaneous right-sided thorax, third episode since last year. Status post chest tube insertion, status post VATS procedure 04/10, status post replacement of chest tube 04/17, plan for pleurodesis today 04/18 -CT surgery following closely and managing, serial x-ray as ordered -Pain control -Pulmonary hygiene History of mantle cell lymphoma and prostate cancer Hypertension -Continue with home med lisinopril Tobacco abuse -Counseled on the importance of cessation during this admission DVT prophylaxis -Heparin subq
[2020-04-18] MEDS ORDERED: KETOROLAC 15 MG/ML 1 ML VIAL IVP STA (10:57)
--- NOTE | 2020-04-18 11:03 | P.OP ---
Date of Procedure: 04/18/20 Preoperative Diagnosis: Basilar pneumothorax with air leak Postoperative Diagnosis: Same Procedure(s) Performed: Bedside talc pleurodesis Anesthesia: GETA, local, none Surgeon: uLis Pinon Estimated Blood Loss (ml): 0 IV fluids (ml): 0 Urine output (ml): 0 Pathology: none sent Condition: stable Disposition: floor Indications for Procedure: 79-year-old who initially presented with spontaneous pneumothorax and was found to have apical blebs and persistent pneumothorax. Patient was taken to the OR for a stapling and pleurodesis. He had persistent pneumothorax it resolved after a few days and the lung was well expanded. Prior to pulling the chest tube, the patient developed recurrent symptomatology and was found to have a anterior basilar pneumothorax. Chest tube was repositioned several times with somewhat improvement but could not resolve the basilar pneumothorax. Patient was returned to the operating room yesterday and had basilar chest tube placed. Patient has small persistent air leak. It was decided to proceed with talc pleurodesis to assure good pleurodesis as well as sealing of the airleak in the most efficacious manner. Description of Procedure: At the bedside 4 g of talc and 100 mg of lidocaine in normal saline suspension of about 60 mL was infused through the chest tube into the pleural space. Once all the fluid was inside the pleural space the tube was reefed we clamped and reconnected to the Pleur-evac. We then draped the tubing over the IV pole and unclamped it so that airleak could come out brought fluid could not. Patient was asked to remain in bed for 1 hour sitting up so that the fluid would pleurodesis the basilar area. After 1 hour the tube was tubing was taken down off the IV pole and allow to drain. Patient tolerated the procedure well.
[2020-04-19] MEDS: HYDROcodone/APAP 5-325MG 1 EACH TAB PO PRN ×4 (00:30→21:03)
[2020-04-19] MEDS: HEPARIN SODIUM,PORCINE 5,000 UNIT/ML 1 ML VIAL SQ SCH ×4 (00:30→23:32)
[2020-04-19] MEDS ORDERED: MAGNESIUM HYDROXIDE 2,400 MG/10 ML CUP PO PRN (07:03)
--- NOTE | 2020-04-19 07:45 | XR ---
EXAMINATION TYPE: XR chest 1V portable DATE OF EXAM: 04/19/2020 COMPARISON: chest x-ray 04/18/2020 HISTORY: Pneumothorax, chest tubes TECHNIQUE: Single frontal view of the chest is obtained. FINDINGS: Basilar right-sided chest tubes are again noted. There is some pleural thickening at the r ight lung base. Patchy density persists in the right lung, appears somewhat less confluent. No eviden t pneumothorax. Heart size is stable. Aorta is dense. IMPRESSION: Findings are similar to prior exam, correlate for pneumonia versus atelectasis or contus ion.
[2020-04-19] MEDS: lisinopriL 20 MG TAB PO SCH ×2 (08:52→21:04)
--- NOTE | 2020-04-19 09:14 | P.PN ---
Subjective Progress Note Date: 04/19/20 Principal diagnosis: Recurrent right-sided spontaneous pneumothorax. Previous medical history of spontaneous pneumothorax in March 2019 and September 2019, prostate cancer status post radiation, mantle cell lymphoma status post radiation, hypertension, previous tobacco dependence, and family history of cancer. POD #9 right-sided video-assisted thoracoscopic surgery with resection of apical blebs, mechanical pleurodesis Persistent pneumothorax, unexpected but potential outcome given multiple blebs POD #2 placement of right-sided pleural chest tube Persistent basilar pneumothorax with air leak POD #1 bedside talc pleurodesis Patient is currently sitting up in bed on the cardiac stepdown unit in no acute distress. States pain is controlled on current medication regimen, denies shortness of breath. Right pleural chest tube present to continuous wall suction, intermittent air leak present. Talc pleurodesis completed yesterday which patient tolerated well. Patient complains of constipation. In addition patient has had some difficulty swallowing and has been switched to pured diet. Objective - Vital Signs Vital signs: Vital Signs Temp 97.8 F 04/19/20 04:00 Pulse 86 04/19/20 04:00 Resp 18 04/19/20 04:00 BP 152/76 04/19/20 04:00 Pulse Ox 94 L 04/19/20 04:00 Intake & Output 04/18/20 04/19/20 04/19/20 18:59 06:59 18:59 Intake Total 360 Output Total 130 945 Balance 230 -945 Weight 74 kg 70.5 kg Intake: Oral 360 Output: Chest Tube Drainage 130 70 Chest Tube Posterior 70 Chest Right Posterior Chest 130 Urine 875 Other: Voiding Method Toilet # Voids 1 1 # Bowel Movements 0 - Constitutional General appearance: Present: cooperative, no acute distress - Respiratory Details: Lungs sounds diminished bilaterally. Respirations even, nonlabored. Currently on 1 L nasal cannula with oxygen saturation 94%. Able to achieve 1000 mL on his incentive spirometry. Right-sided pleural chest tube present to continuous wall suction, 70 mL serosanguineous drainage overnight, 200 mL in the last 24 hours, intermittent air leak present. - Cardiovascular Details: S1, S2 present. Regular rate and rhythm, sinus rhythm on telemetry. Palpable peripheral pulses bilaterally. No edema present. No calf pain or tenderness noted. - Gastrointestinal Gastrointestinal Comment(s): Abdomen soft, nontender, nondistended. Active bowel sounds present 4 quadrants. Tolerating diet. - Genitourinary Genitourinary Comment(s): Continues to void - Integumentary Integumentary Comment(s): Skin is warm and dry with evidence of good perfusion - Neurologic Neurologic: Present: CNII-XII intact - Musculoskeletal Musculoskeletal: Present: gait normal, strength equal bilaterally - Psychiatric Psychiatric: Present: A&O x's 3, appropriate affect, intact judgment & insight - Allied health notes Allied health notes reviewed: nursing - Labs CBC & Chem 7: 04/18/20 05:40 04/18/20 05:40 - Imaging and Cardiology Chest x-ray: report reviewed, image reviewed Assessment and Plan Assessment: 1. Recurrent right-sided spontaneous pneumothorax, status post VATS with resec tion of blebs and mechanical pleurodesis 2. History of prostate cancer diagnosed in 2017 status post radiation 3. 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 Hypertension 5. Previous tobacco dependence, quit March 2019 6. Family history of cancer 7. Leukopenia, expected as patient recently finished radiation 8. Persistent air leak, status post placement of basilar chest tube, talc pleurodesis Plan: 1. Continue right pleural chest tube to continuous wall suction. 2. Wean oxygen as tolerated. Encourage continued incentive spirometry use 3. Increase activity as tolerated. 4. Continue pain control with current medication regimen 5. Stool softeners added 6. Medical management of other comorbidities per primary care service 7. More recommendations to follow Time with Patient: Greater than 30
--- NOTE | 2020-04-19 10:39 | P.PN ---
Subjective Progress Note Date: 04/19/20 Patient is doing well today. He denies any chest pain or shortness of breath. Is complaining of being constipated but denies any abdominal pain or discomfort. Objective - Vital Signs Vital signs: Vital Signs Temp 97.8 F 04/19/20 04:00 Pulse 86 04/19/20 04:00 Resp 18 04/19/20 04:00 BP 152/76 04/19/20 04:00 Pulse Ox 94 L 04/19/20 04:00 Intake & Output 04/18/20 04/19/20 04/19/20 18:59 06:59 18:59 Intake Total 360 80 Output Total 130 945 Balance 230 -945 80 Weight 74 kg 70.5 kg Intake: Oral 360 80 Output: Chest Tube Drainage 130 70 Chest Tube Posterior 70 Chest Right Posterior Chest 130 Urine 875 Other: Voiding Method Toilet # Voids 1 1 # Bowel Movements 0 - Exam General: The patient is awake and alert, in no distress Eye: there is normal conjunctiva bilaterally. Neck: The neck is supple, there is no JVD. Cardiovascular: Normal S1-S2, no S3-S4, no murmurs. Respiratory: Lungs clear to auscultation bilaterally Gastrointestinal: Abdomen is soft, nontender Musculoskeletal: There is no pedal edema. Neurological:. Speech is normal. Skin: Skin is warm and dry - Labs CBC & Chem 7: 04/18/20 05:40 04/18/20 05:40 Assessment and Plan Assessment: This is a 79-year-old male with past medical history noted below who presented to the emergency room with worsening right-sided chest pain and shortness of breath. Patient was evaluated at [place] [facility] and transferred to our hospital for admission for further management of his medical problems noted below. Spontaneous right-sided thorax, third episode since last year. Status post chest tube insertion, status post VATS procedure 04/10, status post replacement of chest tube 04/17, status post pleurodesis on 04/18 -CT surgery following closely and managing, serial x-ray of the chest -Pain control -Pulmonary hygiene Constipation -Probably opiate induced. Started on milk of magnesia History of mantle cell lymphoma and prostate cancer Hypertension -Continue with home med lisinopril Tobacco abuse -Counseled on the importance of cessation during this admission DVT prophylaxis -Heparin subq
[2020-04-19 20:07] LABS: Glucose,Whole Blood 135 mg/dL (75-99)
[2020-04-19] MEDS: SENNOSIDES-DOCUSATE SODIUM 1 EACH TAB PO SCH (21:03)
[2020-04-20 06:24] LABS: Glucose,Whole Blood 110 mg/dL (75-99)
[2020-04-20 06:47] LABS: HCT 28.7 % (39.0-53.0); Hypochromasia Slight; MCH 30.7 pg (25.0-35.0); MCHC 31.4 g/dL (31.0-37.0); MCV 97.8 fL (80.0-100.0); Mean Platelet Volume 7.8; Platelet Count 222 k/uL (150-450); RBC 2.93 m/uL (4.30-5.90); RDW 14.7 % (11.5-15.5); WBC 3.5 k/uL (3.8-10.6)
[2020-04-20 06:56] LABS: African American GFR (CKD) >90 (>60 ml/min/1.73 sqM); Anion Gap 1 mmol/L; Blood Urea Nitrogen 14 mg/dL (9-20); Calcium 8.9 mg/dL (8.4-10.2); Carbon Dioxide 34 mmol/L (22-30); Chloride 100 mmol/L (98-107); Glucose 102 mg/dL (74-99); Non-African American GFR(CKD) 89 (>60 ml/min/1.73 sqM); Potassium 4.1 mmol/L (3.5-5.1); Sodium 135 mmol/L (137-145)
[2020-04-20] MEDS: lisinopriL 20 MG TAB PO SCH ×2 (08:28→21:26)
[2020-04-20] MEDS: HEPARIN SODIUM,PORCINE 5,000 UNIT/ML 1 ML VIAL SQ SCH ×3 (08:28→23:32)
--- NOTE | 2020-04-20 09:09 | XR ---
EXAMINATION TYPE: XR chest 1V portable DATE OF EXAM: 04/20/2020 CLINICAL HISTORY: Pneumothorax TECHNIQUE: Portable frontal view of the chest obtained. COMPARISON: 04/19/2020 chest radiograph FINDINGS: 2 right basilar chest tubes redemonstrated. No pneumothorax. Right basilar airspace opacit y unchanged versus 04/19/2020, and decreased versus 04/18/2020. No pleural effusion. The cardiomediasti nal silhouette is within normal limits for size. IMPRESSION: 1. 2 right-sided basilar chest tube redemonstrated. No pneumothorax. 2. Right basilar airspace opacity unchanged versus 911/20, and decreased versus 04/18/2020.
--- NOTE | 2020-04-20 10:17 | P.PN ---
Subjective Progress Note Date: 04/20/20 Principal diagnosis: Recurrent right-sided spontaneous pneumothorax. Past medical history significant for spontaneous right pneumothorax in March 2019 and September 2019, prostate cancer status post radiation, mantle cell lymphoma status post radiation, hypertension, previous tobacco dependence, and family history of cancer. POD #2 placement of right sided pleural chest tubes. POD #10 right-sided video-assisted thoracoscopic surgery with resection of apical blebs, mechanical pleurodesis. POD #2 bedside right-sided talc pleurodesis The patient was seen in follow-up today 04/20/2020 at his bedside on the cardiac stepdown unit. He is laying in bed with his head elevated, denies any complaints of pain and or shortness of breath. The patient reports that his swallowing feels somewhat improved today, he is tolerating a pured diet. Oxygen saturation are 94% on room air and he is achieving 1000 mL on his incentive spirometry. Right pleural chest tubes remain in place to low continuous wall suction -20 cm H2O. Intermittent air leak is present. Draining thin serosanguineous drainage with 100 mL output in the last 24 hours. Objective - Vital Signs Vital signs: Vital Signs Temp 97.7 F 04/20/20 08:00 Pulse 96 04/20/20 08:00 Resp 18 04/20/20 08:00 BP 117/63 04/20/20 08:00 Pulse Ox 94 L 04/20/20 08:00 Intake & Output 04/19/20 04/20/20 04/20/20 18:59 06:59 18:59 Intake Total 560 240 Output Total 810 900 Balance -250 -900 240 Weight 73 kg Intake: Oral 560 240 Output: Chest Tube Drainage 60 100 Chest Tube Posterior 60 100 Chest Right Posterior Chest 0 Urine 750 800 Other: Voiding Method Urinal # Voids 2 2 # Bowel Movements 1 - Constitutional General appearance: Present: average body habitus, cooperative, no acute distress - EENT Eyes: Present: PERRLA, normal appearance. Absent: scleral icterus ENT: Present: hearing grossly normal - Neck Details: Neck is supple, no JVD, no lymphadenopathy. - Respiratory Details: Lung sounds with scattered expiratory wheezes. No rhonchi or crackles. Respirations are symmetrical and nonlabored. Oxygen saturation is 94% on room air. Achieving 1000 mL on his incentive spirometry. Right pleural chest tube to remain in place to low continuous wall suction -20 cm H2O. Intermittent air leak is present. Draining thin serosanguineous drainage with 100 mL output in the last 24 hours. - Cardiovascular Details: Regular rhythm with tachycardic rate. S1 and S2 present, negative for S3, gallop or murmur. Remote telemetry showing sinus tachycardia heart rate 111 BPM. Knee-high sequential compression devices in place to his bilateral lower extremities. No edema present. - Gastrointestinal Gastrointestinal Comment(s): Abdomen is soft, nontender and nondistended. Active bowel sounds present in all 4 abdominal quadrants. No guarding or rigidity. Tolerating pured diet. - Genitourinary Genitourinary Comment(s): Continues to void. - Integumentary Integumentary Comment(s): Skin is warm and dry. No clubbing or cyanosis is present. Right chest thoracoscopy incision sites clean, dry and approximated. No drainage or redness present. - Neurologic Neurologic: Present: CNII-XII intact - Musculoskeletal Musculoskeletal: Present: gait normal, generalized weakness, strength equal bilaterally - Psychiatric Psychiatric: Present: A&O x's 3, appropriate affect, intact judgment & insight - Allied health notes Allied health notes reviewed: nursing - Labs CBC & Chem 7: 04/20/20 06:06 04/20/20 06:06 Labs: Abnormal Lab Results - Last 24 Hours (Table) 04/19/20 04/20/20 04/20/20 Range/Units 20:04 06:06 06:06 WBC 3.5 L (3.8-10.6) k/uL RBC 2.93 L (4.30-5.90) m/uL Hgb 9.0 L (13.0-17.5) gm/dL Hct 28.7 L (39.0-53.0) % Sodium 135 L (137-145) mmol/L Carbon Dioxide 34 H (22-30) mmol/L Glucose 102 H (74-99) mg/dL POC Glucose (mg/dL) 135 H (75-99) mg/dL 04/20/20 Range/Units 06:22 WBC (3.8-10.6) k/uL RBC (4.30-5.90) m/uL Hgb (13.0-17.5) gm/dL Hct (39.0-53.0) % Sodium (137-145) mmol/L Carbon Dioxide (22-30) mmol/L Glucose (74-99) mg/dL POC Glucose (mg/dL) 110 H (75-99) mg/dL - Imaging and Cardiology Chest x-ray: report reviewed, image reviewed Assessment and Plan Assessment: 1. Recurrent right-sided spontaneous pneumothorax, status post VATS with re section of blebs and mechanical pleurodesis 2. History of prostate cancer diagnosed in 2017 status post radiation 3. 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 Hypertension 5. Previous tobacco dependence, quit March 2019 6. Family history of cancer 7. Leukopenia, expected as patient recently finished radiation 8. Right chest tubes with persistent air leak, status post placement of basilar chest tubes and talc pleurodesis Plan: 1. Continue right pleural chest tube to low continuous wall suction -20 cm H2O. Continue to monitor for air leak resolution. 2. Wean oxygen as tolerated. Encourage continued incentive spirometry use 10 times every hour while awake. 3. Increase activity as tolerated. 4. Continue pain control with current medication regimen. 5. Medical management of other comorbidities per primary care service. 6. Consult speech therapy for swallowing eval, patient complaining of difficulty swallowing. 7. More recommendations to follow based on patient's clinical course. Time with Patient: Greater than 30
[2020-04-20 11:53] LABS: Glucose,Whole Blood 113 mg/dL (75-99)
--- NOTE | 2020-04-20 14:30 | P.PN ---
Subjective Patient is doing well today. He denies any chest pain or shortness of breath. He had a bowel movement this morning Objective - Vital Signs Vital signs: Vital Signs Temp 97.9 F 04/20/20 11:53 Pulse 80 04/20/20 11:53 Resp 18 04/20/20 11:53 BP 149/69 04/20/20 11:53 Pulse Ox 95 04/20/20 11:53 Intake & Output 04/19/20 04/20/20 04/20/20 18:59 06:59 18:59 Intake Total 560 240 Output Total 810 900 20 Balance -250 -900 220 Weight 73 kg Intake: Oral 560 240 Output: Chest Tube Drainage 60 100 20 Chest Tube Posterior 60 100 20 Chest Right Posterior Chest 0 Urine 750 800 Other: Voiding Method Urinal # Voids 2 2 # Bowel Movements 1 - Exam General: The patient is awake and alert, in no distress Eye: there is normal conjunctiva bilaterally. Neck: The neck is supple, there is no JVD. Cardiovascular: Normal S1-S2, no S3-S4, no murmurs. Respiratory: Lungs clear to auscultation bilaterally Gastrointestinal: Abdomen is soft, nontender Musculoskeletal: There is no pedal edema. Neurological:. Speech is normal. Skin: Skin is warm and dry - Labs CBC & Chem 7: 04/20/20 06:06 04/20/20 06:06 Labs: Abnormal Lab Results - Last 24 Hours (Table) 04/19/20 04/20/20 04/20/20 Range/Units 20:04 06:06 06:06 WBC 3.5 L (3.8-10.6) k/uL RBC 2.93 L (4.30-5.90) m/uL Hgb 9.0 L (13.0-17.5) gm/dL Hct 28.7 L (39.0-53.0) % Sodium 135 L (137-145) mmol/L Carbon Dioxide 34 H (22-30) mmol/L Glucose 102 H (74-99) mg/dL POC Glucose (mg/dL) 135 H (75-99) mg/dL 04/20/20 04/20/20 Range/Units 06:22 11:50 WBC (3.8-10.6) k/uL RBC (4.30-5.90) m/uL Hgb (13.0-17.5) gm/dL Hct (39.0-53.0) % Sodium (137-145) mmol/L Carbon Dioxide (22-30) mmol/L Glucose (74-99) mg/dL POC Glucose (mg/dL) 110 H 113 H (75-99) mg/dL Assessment and Plan Assessment: This is a 79-year-old male with past medical history noted below who presented to the emergency room with worsening right-sided chest pain and shortness of breath. Patient was evaluated at [facility] and transferred to our hospital for admission for further management of his medical problems noted below. Spontaneous right-sided thorax, third episode since last year. Status post chest tube insertion, status post VATS procedure 04/10, status post replacement of chest tube 04/17, status post pleurodesis on 04/18 -CT surgery following closely and managing, serial x-ray of the chest -Pain control -Pulmonary hygiene Constipation -Probably opiate induced. Started on milk of magnesia History of mantle cell lymphoma and prostate cancer Hypertension -Continue with home med lisinopril Tobacco abuse -Counseled on the importance of cessation during this admission DVT prophylaxis -Heparin subq
[2020-04-20] MEDS: SENNOSIDES-DOCUSATE SODIUM 1 EACH TAB PO SCH (21:27)
[2020-04-20] MEDS: HYDROcodone/APAP 5-325MG 1 EACH TAB PO PRN (21:35)
[2020-04-21] MEDS: lisinopriL 20 MG TAB PO SCH ×2 (08:06→19:42)
[2020-04-21] MEDS: HEPARIN SODIUM,PORCINE 5,000 UNIT/ML 1 ML VIAL SQ SCH ×3 (08:06→23:03)
--- NOTE | 2020-04-21 08:17 | XR ---
EXAMINATION TYPE: XR chest 1V portable DATE OF EXAM: 04/21/2020 COMPARISON: 04/20/2020 HISTORY: Shortness of breath TECHNIQUE: Single frontal view of the chest is obtained. FINDINGS: Right-sided chest tubes again noted. Underlying COPD seen are small amount of fluid in the minor fissure. Coarsened interstitium stable cardiac size. Atherosclerotic change aorta. No sizable pneumothorax. IMPRESSION: 1. COPD with reducing right lower lobe infiltrate. Correlate for chronic interstitial lung disease or interstitial pneumonitis. Mild venous congestion not excluded.
--- NOTE | 2020-04-21 09:26 | P.PN ---
Subjective Progress Note Date: 04/21/20 Principal diagnosis: Recurrent right-sided spontaneous pneumothorax. Past medical history significant for spontaneous right pneumothorax in March 2019 and September 2019, prostate cancer status post radiation, mantle cell lymphoma status post radiation, hypertension, previous tobacco dependence, and family history of cancer. POD #3 placement of right sided pleural chest tubes. POD #11 right-sided video-assisted thoracoscopic surgery with resection of apical blebs, mechanical pleurodesis. POD #3 bedside right-sided talc pleurodesis The patient was seen in follow-up today 04/21/2020 at his bedside on the cardiac stepdown unit. Currently he is sitting up to the chair, he is awake, alert and oriented 3 and is in no acute distress. He reports he feels much better on a daily basis, although continues complaining of difficulty with swallowing and coughing up phlegm. Denies any complaints of shortness of breath or pain at this time. Oxygen saturation are 94% on room air and he is achieving 1000 mL to 1250 mL on his incentive spirometry. Right pleural chest tubes remain in place to low continuous wall suction -20 cm H2O. Intermittent air leak is present. Draining thin serosanguineous drainage with 200 mL output in the last 24 hours. Chest x-ray completed this morning shows no sizable pneumothorax. Objective - Vital Signs Vital signs: Vital Signs Temp 97.7 F 04/21/20 08:00 Pulse 88 04/21/20 08:00 Resp 18 04/21/20 08:00 BP 117/55 04/21/20 08:00 Pulse Ox 94 L 04/21/20 08:00 Intake & Output 04/20/20 04/21/20 04/21/20 18:59 06:59 18:59 Intake Total 240 300 240 Output Total 800 Balance 240 -500 240 Weight 67.6 kg Intake: Oral 240 300 240 Output: Chest Tube Drainage 50 Chest Tube Posterior 50 Chest Right Posterior Chest 0 Urine 750 Other: Voiding Method Urinal # Voids 1 # Bowel Movements 1 - Constitutional General appearance: Present: average body habitus, cooperative, no acute distress - EENT Eyes: Present: PERRLA, normal appearance ENT: Present: hearing grossly normal - Neck Details: Neck is supple, no JVD, no lymphadenopathy. - Respiratory Details: Lung sounds with expiratory wheezes throughout, diminished to his BILATERAL bases. No rhonchi or crackles. Respirations are symmetrical and nonlabored. Oxygen saturation are 94% on room air. Achieving 3766-2269 mL on his incentive spirometry. Right pleural chest tubes remain in place to low continuous wall suction -20 cm H2O. Draining thin serosanguineous drainage with 200 mL output in the last 24 hours. Intermittent air leak is present. - Cardiovascular Details: Regular rhythm and rate. S1 and S2 present, negative for S3, gallop or murmur. No edema present. Knee-high sequential compression devices in place to his bilateral lower extremities. - Gastrointestinal Gastrointestinal Comment(s): Abdomen is soft, nontender and nondistended. Active bowel sounds present in all 4 abdominal quadrants. No guarding or rigidity. No organomegaly appreciated. - Genitourinary Genitourinary Comment(s): Continues to void - Integumentary Integumentary Comment(s): Skin is warm and dry. No clubbing or cyanosis is present. Right chest thoracoscopy incisions clean dry and approximated. No drainage redness is present. - Neurologic Neurologic: Present: CNII-XII intact - Musculoskeletal Musculoskeletal: Present: gait normal, generalized weakness, strength equal bilaterally - Psychiatric Psychiatric: Present: A&O x's 3, appropriate affect, intact judgment & insight - Allied health notes Allied health notes reviewed: nursing - Labs CBC & Chem 7: 04/20/20 06:06 04/20/20 06:06 Labs: Abnormal Lab Results - Last 24 Hours (Table) 04/20/20 Range/Units 11:50 POC Glucose (mg/dL) 113 H (75-99) mg/dL - Imaging and Cardiology Chest x-ray: report reviewed, image reviewed Assessment and Plan Assessment: 1. Recurrent right-sided spontaneous pneumothorax, status post VATS with resection of blebs and mechanical pleurodesis 2. History of prostate cancer diagnosed in 2017 status post radiation 3. 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 Hypertension 5. Previous tobacco dependence, quit March 2019 6. Family history of cancer 7. Leukopenia, expected as patient recently finished radiation 8. Right chest tubes with persistent air leak, status post placement of basilar chest tubes and talc pleurodesis Plan: 1. Place right pleural chest tube to waterseal and remove continuous wall suction. Repeat chest x-ray 2 hours post suction removal to evaluate for pneumothorax. 2. Wean oxygen as tolerated. Encourage continued incentive spirometry use 10 times every hour while awake. 3. Increase activity as tolerated. 4. Continue pain control with current medication regimen. 5. Medical management of other comorbidities per primary care service. 6. Consult speech therapy for swallowing eval, patient complaining of difficulty swallowing. Consult pending. 7. More recommendations to follow based on patient's clinical course. Time with Patient: Greater than 30
--- NOTE | 2020-04-21 10:03 | XR ---
EXAMINATION TYPE: XR chest 1V portable DATE OF EXAM: 04/21/2020 COMPARISON: 04/21/2020 HISTORY: Shortness of breath TECHNIQUE: Single frontal view of the chest is obtained. FINDINGS: There are 2 right-sided chest tube stable position with no sizable pneumothorax. Thickenin g or small amount of fluid in the minor fissure. Atherosclerotic change aorta. Heart size normal. Und erlying COPD suspected near the coarsened appearance to the interstitium. IMPRESSION: 1. No sizable pneumothorax. 2. COPD with reducing right lower lobe infiltrate. Correlate for chronic interstitial lung disease, i nterstitial pneumonitis or venous congestion
--- NOTE | 2020-04-21 10:44 | P.PN ---
Subjective Patient is doing well today. Chest tube was clamped and repeat x-ray this morning showed no pneumothorax Objective - Vital Signs Vital signs: Vital Signs Temp 97.7 F 04/21/20 08:00 Pulse 88 04/21/20 08:00 Resp 18 04/21/20 08:00 BP 117/55 04/21/20 08:00 Pulse Ox 94 L 04/21/20 08:00 Intake & Output 04/20/20 04/21/20 04/21/20 18:59 06:59 18:59 Intake Total 240 300 240 Output Total 800 Balance 240 -500 240 Weight 67.6 kg Intake: Oral 240 300 240 Output: Chest Tube Drainage 50 Chest Tube Posterior 50 Chest Right Posterior Chest 0 Urine 750 Other: Voiding Method Urinal # Voids 1 # Bowel Movements 1 - Exam General: The patient is awake and alert, in no distress Eye: there is normal conjunctiva bilaterally. Neck: The neck is supple, there is no JVD. Cardiovascular: Normal S1-S2, no S3-S4, no murmurs. Respiratory: Lungs clear to auscultation bilaterally Gastrointestinal: Abdomen is soft, nontender Musculoskeletal: There is no pedal edema. Neurological:. Speech is normal. Skin: Skin is warm and dry - Labs CBC & Chem 7: 04/20/20 06:06 04/20/20 06:06 Labs: Abnormal Lab Results - Last 24 Hours (Table) 04/20/20 Range/Units 11:50 POC Glucose (mg/dL) 113 H (75-99) mg/dL Assessment and Plan Assessment: This is a 79-year-old male with past medical history noted below who presented to the emergency room with worsening right-sided chest pain and shortness of breath. Patient was evaluated at [facility] and transferred to our hospital for admission for further management of his medical problems noted below. Spontaneous right-sided thorax, third episode since last year. Status post chest tube insertion, status post VATS procedure 04/10, status post replacement of chest tube 04/17, status post pleurodesis on 04/18 -CT surgery following closely and managing, serial x-ray of the chest -Pain control -Pulmonary hygiene Constipation -Probably opiate induced. Resolved with milk of magnesia History of mantle cell lymphoma and prostate cancer Hypertension -Continue with home med lisinopril Tobacco abuse -Counseled on the importance of cessation during this admission DVT prophylaxis -Heparin subq
[2020-04-21] MEDS: SENNOSIDES-DOCUSATE SODIUM 1 EACH TAB PO SCH (19:42)
--- NOTE | 2020-04-22 07:24 | XR ---
EXAMINATION TYPE: XR chest 1V portable DATE OF EXAM: 04/22/2020 CLINICAL HISTORY: Pneumothorax with chest tubes progress study. TECHNIQUE: Single AP portable upright view of the chest is obtained. COMPARISON: Chest x-ray from one day earlier and older studies. CT chest 6 days ago. FINDINGS: Stable 2 right basilar chest tubes. No visualized pneumothorax. Background chronic emphyse matous and parenchymal fibrotic change. No new suspicious focal airspace opacity bilaterally. Cardiac silhouette size remains within normal limits with atherosclerotic change in the aortic knob. [place] ic curvature upper lumbar spine may be positional. IMPRESSION: 2 basilar chest tubes without pneumothorax. Chronic emphysematous and parenchymal fibroti c changes with persistent patchy right basilar atelectasis and/or infiltrate. No significant change f rom one day earlier.
[2020-04-22] MEDS: lisinopriL 20 MG TAB PO SCH ×2 (08:41→19:38)
[2020-04-22] MEDS: IBUPROFEN 600 MG TAB PO PRN ×2 (08:41→17:52)
[2020-04-22] MEDS: HEPARIN SODIUM,PORCINE 5,000 UNIT/ML 1 ML VIAL SQ SCH ×3 (08:43→23:00)
--- NOTE | 2020-04-22 09:33 | P.PN ---
Subjective Progress Note Date: 04/22/20 Principal diagnosis: Recurrent right-sided spontaneous pneumothorax. Previous medical history of spontaneous pneumothorax in March 2019 and September 2019, prostate cancer status post radiation, mantle cell lymphoma status post radiation, hypertension, previous tobacco dependence, and family history of cancer. POD #12 right-sided video-assisted thoracoscopic surgery with resection of apical blebs, mechanical pleurodesis Persistent pneumothorax, unexpected but potential outcome given multiple blebs POD #5 placement of right-sided pleural chest tube Persistent basilar pneumothorax with air leak POD #4 bedside talc pleurodesis Patient is currently sitting up in bed on the cardiac stepdown unit in no acute distress. States pain is mostly controlled on current medication regimen, denies shortness of breath. Right pleural chest tube present to continuous water seal, intermittent air leak still present. Patient has had some difficulty swallowing, currently getting dysphasia diet, speech therapist consulted. Objective - Vital Signs Vital signs: Vital Signs Temp 98.4 F 04/22/20 03:58 Pulse 86 04/22/20 03:58 Resp 18 04/22/20 03:58 BP 140/71 04/22/20 03:58 Pulse Ox 93 L 04/22/20 03:58 Intake & Output 04/21/20 04/22/20 04/22/20 18:59 06:59 18:59 Intake Total 480 600 236 Output Total 1325 Balance 480 -725 236 Weight 67 kg Intake: Oral 480 600 236 Output: Chest Tube Drainage 0 Chest Tube Posterior 0 Chest Urine 1325 Other: Voiding Method Urinal # Voids 1 - Constitutional General appearance: Present: cooperative, no acute distress - Respiratory Details: Lungs sounds diminished bilaterally. Respirations even, nonlabored. Currently on room air with oxygen saturation 93%. Able to achieve 1250 mL on his incentive spirometry. Right-sided pleural chest tube present to waterseal, no drainage overnight, 50 mL in the last 24 hours, intermittent air leak still present. - Cardiovascular Details: S1, S2 present. Regular rate and rhythm, sinus rhythm on telemetry. Palpable peripheral pulses bilaterally. No edema present. No calf pain or tenderness noted. - Gastrointestinal Gastrointestinal Comment(s): Abdomen soft, nontender, nondistended. Active bowel sounds present 4 quadrants. Tolerating diet. Positive bowel movement / - Genitourinary Genitourinary Comment(s): Continues to void - Integumentary Integumentary Comment(s): Skin is warm and dry with evidence of good perfusion - Neurologic Neurologic: Present: CNII-XII intact - Musculoskeletal Musculoskeletal: Present: gait normal, strength equal bilaterally - Psychiatric Psychiatric: Present: A&O x's 3, appropriate affect, intact judgment & insight - Allied health notes Allied health notes reviewed: nursing - Labs CBC & Chem 7: 04/20/20 06:06 04/20/20 06:06 - Imaging and Cardiology Chest x-ray: report reviewed, image reviewed Assessment and Plan Assessment: 1. Recurrent right-sided spontaneous pneumothorax, status post VATS with resection of blebs and mechanical pleurodesis 2. History of prostate cancer diagnosed in 2017 status post radiation 3. 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 Hypertension 5. Previous tobacco dependence, quit March 2019 6. Family history of cancer 7. Leukopenia, expected as patient recently finished radiation 8. Persistent air leak, status post placement of basilar chest tube, talc pleurodesis Plan: 1. Lateral chest tube clamped, will repeat chest x-ray in 2 hours. As long as lung remains expanded we will leave lateral chest tube clamped until tomorrow and likely will discontinue tomorrow. We will leave anterior chest tube to waterseal. 2. Encourage continued incentive spirometry use 3. Increase activity, ambulate as tolerated. 4. Continue pain control with current medication regimen 5. Speech therapy consult pending 6. Medical management of other comorbidities per primary care service 7. More recommendations to follow Time with Patient: Greater than 30
--- NOTE | 2020-04-22 10:42 | XR ---
EXAMINATION TYPE: XR chest 2V DATE OF EXAM: 04/22/2020 COMPARISON: Chest x-ray earlier today. HISTORY: Chest tubes status post clamping. TECHNIQUE: Frontal and lateral views of the chest are obtained. FINDINGS: Stable 2 right basilar chest tubes. No visualized recurrent pneumothorax after chest tube clamping. Background chronic emphysematous and parenchymal fibrotic change redemonstrated. No new melba picious focal airspace opacity bilaterally. Cardiac silhouette size remains within normal limits with atherosclerotic change in the aortic knob redemonstrated. Osseous structures are intact. IMPRESSION: No recurrent right-sided pneumothorax after chest tube clamping.
--- NOTE | 2020-04-22 10:55 | P.PN ---
Subjective Progress Note Date: 04/22/20 Patient is doing well today. Chest tube was clamped and repeat x-ray this morning showed no pneumothorax Objective - Vital Signs Vital signs: Vital Signs Temp 98.4 F 04/22/20 03:58 Pulse 86 04/22/20 03:58 Resp 18 04/22/20 03:58 BP 140/71 04/22/20 03:58 Pulse Ox 93 L 04/22/20 03:58 Intake & Output 04/21/20 04/22/20 04/22/20 18:59 06:59 18:59 Intake Total 480 600 236 Output Total 1325 Balance 480 -725 236 Weight 67 kg Intake: Oral 480 600 236 Output: Chest Tube Drainage 0 Chest Tube Posterior 0 Chest Urine 1325 Other: Voiding Method Urinal # Voids 1 - Exam General: The patient is awake and alert, in no distress Eye: there is normal conjunctiva bilaterally. Neck: The neck is supple, there is no JVD. Cardiovascular: Normal S1-S2, no S3-S4, no murmurs. Respiratory: Lungs clear to auscultation bilaterally Gastrointestinal: Abdomen is soft, nontender Musculoskeletal: There is no pedal edema. Neurological:. Speech is normal. Skin: Skin is warm and dry - Labs CBC & Chem 7: 04/20/20 06:06 04/20/20 06:06 Assessment and Plan Assessment: This is a 79-year-old male with past medical history noted below who presented to the emergency room with worsening right-sided chest pain and shortness of breath. Patient was evaluated at [facility] and transferred to our [facility]spital for admission for further management of his medical problems noted below. Spontaneous right-sided thorax, third episode since last year. Status post chest tube insertion, status post VATS procedure 04/10, status post replacement of chest tube 04/17, status post pleurodesis on 04/18 -CT surgery following closely and managing, serial x-ray of the chest -Pain control -Pulmonary hygiene Constipation -Probably opiate induced. Resolved with milk of magnesia History of mantle cell lymphoma and prostate cancer Hypertension -Continue with home med lisinopril Tobacco abuse -Counseled on the importance of cessation during this admission DVT prophylaxis -Heparin subq
[2020-04-22] MEDS: SENNOSIDES-DOCUSATE SODIUM 1 EACH TAB PO SCH (19:37)
[2020-04-23] MEDS: IBUPROFEN 600 MG TAB PO PRN ×3 (04:32→20:37)
--- NOTE | 2020-04-23 07:24 | XR ---
EXAMINATION TYPE: XR chest 2V DATE OF EXAM: 04/23/2020 COMPARISON: 04/22/2020 HISTORY: 79-year-old male pneumothorax TECHNIQUE: PA and lateral views FINDINGS: Heart normal size. Atherosclerotic arch calcifications. Postsurgical change at the right apex. Some f luid or atelectasis thickening the right minor fissure. 2 right basilar chest tubes are in place. A t race pleural edge is now demonstrated at the right base as indicated by the arrow. No sizable effusio n. IMPRESSION: 2 right basilar chest tubes. There is now a small pleural edge visualized at the right base suggestin g a recurrent trace right basilar pneumothorax as indicated by the arrow. COPD and postsurgical change at the right apex.
--- NOTE | 2020-04-23 07:46 | P.PN ---
Subjective Progress Note Date: 04/23/20 Principal diagnosis: Recurrent right-sided spontaneous pneumothorax. Previous medical history of spontaneous pneumothorax in March 2019 and September 2019, prostate cancer status post radiation, mantle cell lymphoma status post radiation, hypertension, previous tobacco dependence, and family history of cancer. POD #13 right-sided video-assisted thoracoscopic surgery with resection of apical blebs, mechanical pleurodesis Persistent pneumothorax, unexpected but potential outcome given multiple blebs POD #6 placement of right-sided pleural chest tube Persistent basilar pneumothorax with air leak POD #5 bedside talc pleurodesis Patient is currently sitting up in bed on the cardiac stepdown unit in no acute distress. States pain is mostly controlled on current medication regimen, denies shortness of breath. Right pleural chest tube present to continuous water seal, no air leak present this morning. Patient has had some difficulty swallowing, seen by speech therapist, dysphasia diet graded 2 chopped foods. updated at the bedside yesterday, all questions answered Objective - Vital Signs Vital signs: Vital Signs Temp 98.0 F 04/23/20 04:00 Pulse 81 04/23/20 04:00 Resp 18 04/23/20 04:00 BP 140/74 04/23/20 04:00 Pulse Ox 93 L 04/23/20 04:00 Intake & Output 04/22/20 04/23/20 04/23/20 18:59 06:59 18:59 Intake Total 472 600 Output Total 0 400 Balance 472 200 Weight 67 kg Intake: Oral 472 600 Output: Chest Tube Drainage 0 0 Chest Tube Posterior 0 0 Chest Right Posterior Chest 0 0 Drainage 0 0 Right Chest 0 0 Urine 400 Other: Voiding Method Urinal Urinal # Voids 2 1 - Constitutional General appearance: Present: cooperative, no acute distress - Respiratory Details: Lungs sounds diminished bilaterally. Respirations even, nonlabored. Currently on room air with oxygen saturation 93%. Able to achieve 1250 mL on his incentive spirometry. Right-sided pleural chest tube present to waterseal, no drainage in the last 24 hours, no air leak present. - Cardiovascular Details: S1, S2 present. Regular rate and rhythm, sinus rhythm with PACs on telemetry. Palpable peripheral pulses bilaterally. No edema present. No calf pain or tenderness noted. - Gastrointestinal Gastrointestinal Comment(s): Abdomen soft, nontender, nondistended. Active bowel sounds present 4 quadrants. Tolerating diet. Positive bowel movement 04/20 - Genitourinary Genitourinary Comment(s): Continues to void - Integumentary Integumentary Comment(s): Skin is warm and dry with evidence of good perfusion - Neurologic Neurologic: Present: CNII-XII intact - Musculoskeletal Musculoskeletal: Present: gait normal, strength equal bilaterally - Psychiatric Psychiatric: Present: A&O x's 3, appropriate affect, intact judgment & insight - Allied health notes Allied health notes reviewed: nursing - Labs CBC & Chem 7: 04/20/20 06:06 04/20/20 06:06 - Imaging and Cardiology Chest x-ray: report reviewed, image reviewed Assessment and Plan Assessment: 1. Recurrent right-sided spontaneous pneumothorax, status post VATS with resection of blebs and mechanical pleurodesis 2. History of prostate cancer diagnosed in 2017 status post radiation 3. 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 Hypertension 5. Previous tobacco dependence, quit March 2019 6. Family history of cancer 7. Leukopenia, expected as patient recently finished radiation 8. Persistent air leak, status post placement of basilar chest tube, talc pleurodesis Plan: 1. Will discontinue lateral chest tube. We will leave anterior chest tube to waterseal. 2. Repeat chest x-ray in the morning 3. Encourage continued incentive spirometry use 4. Increase activity, ambulate as tolerated. 5. Continue pain control with current medication regimen 6. Medical management of other comorbidities per primary care service 7. More recommendations to follow Time with Patient: Greater than 30
[2020-04-23] MEDS: HEPARIN SODIUM,PORCINE 5,000 UNIT/ML 1 ML VIAL SQ SCH ×3 (09:04→23:59)
[2020-04-23] MEDS: lisinopriL 20 MG TAB PO SCH ×2 (09:04→20:35)
--- NOTE | 2020-04-23 15:52 | XR ---
EXAMINATION TYPE: XR chest 2V DATE OF EXAM: 04/23/2020 COMPARISON: Prior chest x-ray 04/23/2020 HISTORY: Status post chest tube removal TECHNIQUE: Frontal and lateral views of the chest are obtained. FINDINGS: There is been interval removal of one of the basilar chest tubes on the right. Second ches t tube remains in place. There is no evident pneumothorax. Pleural parenchymal changes are similar to prior exam. Cardiac mediastinal silhouette, pulmonary vascularity and orlin are unchanged. Patient is rotated. Aorta is dense. IMPRESSION: No evident complication status post chest tube removal.
--- NOTE | 2020-04-23 20:03 | P.PN ---
Subjective Progress Note Date: 04/23/20 (delayed charting seen at 1030) Principal diagnosis: shortness of breath Patient is a 79-year-old male with hypertension, BPH, mantle cell lymphoma, and prostate cancer who presented to the emergency room as a transfer from [place] secondary to sudden onset right chest pain or shortness of breath. She was found have a large right-sided pneumothorax with mediastinal shift to the left. He has a chest tube placed with resolution of the mediastinal shift. Initial laboratory analysis demonstrated an increased creatinine consistent with dehydration. He was admitted and CT surgery was consulted. Initially conservative management was attempted with chest tube placement. CT chest 04/05 which showed a tiny right-sided pneumothorax with emphysematous changes and multiple blebs. He failed conservative management of chest tube. He ultimately underwent a VATS on 04/10 with resection of apical blebs and mechanical pleurodesis. He had continued pneumothorax and chest tube has been readjusted. On 04/27 he was taken back to the operating room had removal of his old chest t ube with placement of 2 right-sided pleural chest tubes. On he underwent to help pleurodesis. Patient seen and examined at bedside. No pain today, no shortness breath, no nausea, no vomiting. General: non toxic, no distress, appears at stated age Derm: warm, dry Head: atraumatic, normocephalic, symmetric Eyes: EOMI, no lid lag, anicteric sclera Mouth: no lip lesion, mucus membranes moist Cardiovascular: S1S2 reg, no murmur, positive posterior tibial pulse bilateral, Lungs: Clear to auscultation bilateral, no accessory muscle use, chest tube in place Abdominal: soft, nontender to palpation, no guarding, no appreciable organomegaly Ext: no gross muscle atrophy, no edema, no contractures Neuro: CN II-XI grossly intact, no focal neuro deficits Psych: Alert, oriented, appropriate affect Tension pneumothorax status post chest tube, status post VATS, chest tube repositioning, and told pleurodesis -Chest tube in place. Management per CT surgery. Discussed with CT surgery plan is removal of one chest tube today -Pain control -Pulmonary hygiene Hypertension - Lisinopril - Controlled Insomnia - melatonin Anemia -Was present prior to surgery, undetermined etiology but likely related to chronic bone marrow suppression secondary to cancer -iron studies show anemia of chronic disease -Follow CBC -Hemoglobin currently stable and will defer to outpatient workup. Thrombocytopenia, resolved Prior tobacco abuse-quit March 2019 History of mantle cell lymphoma and prostate cancer Hyponatremia, stable DVT prophylaxis: Heparin Discussed with: patient, nursing Anticipated discharge: in AM Anticipated discharge place: home A total of 25 minutes was spent on the care of this complex patient more than 50% of the time was spent in counseling and care coordination. Objective - Vital Signs Vital signs: Vital Signs Temp 98.2 F 04/23/20 16:00 Pulse 86 04/23/20 16:00 Resp 16 04/23/20 16:00 BP 116/52 04/23/20 16:00 Pulse Ox 92 L 04/23/20 16:00 Intake & Output 04/23/20 04/23/20 04/24/20 06:59 18:59 06:59 Intake Total 600 920 Output Total 400 0 Balance 200 920 Weight 67 kg Intake: Oral 600 920 Output: Chest Tube Drainage 0 0 Chest Tube Posterior 0 0 Chest Right Posterior Chest 0 0 Drainage 0 Right Chest 0 Urine 400 Other: Voiding Method Urinal Urinal # Voids 1 - Labs CBC & Chem 7: 04/20/20 06:06 04/20/20 06:06
[2020-04-23] MEDS: SENNOSIDES-DOCUSATE SODIUM 1 EACH TAB PO SCH (20:35)
[2020-04-24 01:33] VITALS: RESP 17
--- NOTE | 2020-04-24 08:38 | XR ---
EXAMINATION TYPE: XR chest 2V DATE OF EXAM: 04/24/2020 COMPARISON: 04/23/2020 INDICATION: Pneumothorax TECHNIQUE: Frontal and lateral views of the chest are obtained. FINDINGS: The heart size is normal. The pulmonary vasculature is normal. There is a posterior pleural thickening or loculated effusion. Workup is recommended. Hyperinflation flattening the diaphragms is present. A right basilar chest tube is present. No pneumothorax is evid ent this time. Mild blunting the right costophrenic angle is present. Small right pleural effusion is present. IMPRESSION: 1. No pneumothorax, right side chest tube remains in position. 2. Small right pleural effusion. 3. Posterior curvilinear density may be somewhat more prominent suggesting loculated effusion. This c ould be worked up with CT exam as clinically indicated.
[2020-04-24] MEDS: lisinopriL 20 MG TAB PO SCH (08:42)
--- NOTE | 2020-04-24 09:00 | P.PN ---
Subjective Progress Note Date: 04/24/20 Principal diagnosis: Recurrent right-sided spontaneous pneumothorax. Previous medical history of spontaneous pneumothorax in March 2019 and September 2019, prostate cancer status post radiation, mantle cell lymphoma status post radiation, hypertension, previous tobacco dependence, and family history of cancer. POD #14 right-sided video-assisted thoracoscopic surgery with resection of apical blebs, mechanical pleurodesis Persistent pneumothorax, unexpected but potential outcome given multiple blebs POD #7 placement of right-sided pleural chest tube Persistent basilar pneumothorax with air leak POD #6 bedside talc pleurodesis Patient is currently sitting up in bed on the cardiac stepdown unit in no acute distress. States pain is mostly controlled on current medication regimen, denies shortness of breath. Right pleural chest tube clamped yesterday, chest x-ray this am demonstrates no pneumothorax. Chest tube unclamped, no air leak present. Objective - Vital Signs Vital signs: Vital Signs Temp 98.7 F 04/23/20 20:00 Pulse 78 04/24/20 04:00 Resp 17 04/24/20 04:00 BP 105/59 04/24/20 04:00 Pulse Ox 93 L 04/24/20 04:00 Intake & Output 04/23/20 04/24/20 04/24/20 18:59 06:59 18:59 Intake Total 920 236 Output Total 0 410 Balance 920 -410 236 Weight 67.8 kg Intake: Oral 920 236 Output: Chest Tube Drainage 0 10 Chest Tube Posterior 0 0 Chest Right Posterior Chest 0 10 Urine 400 Other: Voiding Method Urinal Urinal # Voids 1 - Constitutional General appearance: Present: cooperative, no acute distress - Respiratory Details: Lungs sounds diminished bilaterally. Respirations even, nonlabored. Currently on room air with oxygen saturation 93%. Able to achieve 1250 mL on his incentive spirometry. Right-sided pleural chest tube present, clamped, no air leak present when unclamped. - Cardiovascular Details: S1, S2 present. Regular rate and rhythm, sinus rhythm with PACs on telemetry. Palpable peripheral pulses bilaterally. No edema present. No calf pain or tenderness noted. - Gastrointestinal Gastrointestinal Comment(s): Abdomen soft, nontender, nondistended. Active bowel sounds present 4 quadrants. Tolerating diet. Positive bowel movement - Genitourinary Genitourinary Comment(s): Continues to void - Integumentary Integumentary Comment(s): Skin is warm and dry with evidence of good perfusion - Neurologic Neurologic: Present: CNII-XII intact - Musculoskeletal Musculoskeletal: Present: gait normal, strength equal bilaterally - Psychiatric Psychiatric: Present: A&O x's 3, appropriate affect, intact judgment & insight - Allied health notes Allied health notes reviewed: nursing - Labs CBC & Chem 7: 04/20/20 06:06 04/20/20 06:06 - Imaging and Cardiology Chest x-ray: report reviewed, image reviewed Assessment and Plan Assessment: 1. Recurrent right-sided spontaneous pneumothorax, status post VATS with resection of blebs and mechanical pleurodesis 2. History of prostate cancer diagnosed in 2017 status post radiation 3. 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 Hypertension 5. Previous tobacco dependence, quit March 2019 6. Family history of cancer 7. Leukopenia, expected as patient recently finished radiation 8. Persistent air leak, status post placement of basilar chest tube, talc pleurodesis Plan: 1. Remaining chest tube discontinued without incident. 2. Repeat chest x-ray in 2 hours, if stable may discharge to home from cardiothoracic standpoint 3. Encourage continued incentive spirometry use 4. Increase activity, ambulate as tolerated. 5. Continue pain control with current medication regimen 6. Medical management of other comorbidities per primary care service 7. Appointment made for patient to follow up in the office next week with CXR before appointment Time with Patient: Greater than 30
--- NOTE | 2020-04-24 11:29 | XR ---
EXAMINATION TYPE: XR chest 2V DATE OF EXAM: 04/24/2020 COMPARISON: Earlier exam INDICATION: Chest tube TECHNIQUE: Frontal and lateral views of the chest are obtained. FINDINGS: The heart size is normal. The pulmonary vasculature is normal. Mild infiltrate is at the right lung base. The right basilar chest tube is been removed. No pneumotho rax is evident. IMPRESSION: 1. No pneumothorax post right chest tube. 2. Residual right lower lobe infiltrate possible minimal right pleural effusion
[2020-04-24] MEDS: HEPARIN SODIUM,PORCINE 5,000 UNIT/ML 1 ML VIAL SQ SCH (11:35)
[2020-04-24 11:41] VITALS: PULSE 95
[2020-04-24 14:59] VITALS: BMI 21.4
[2020-04-24 15:35] VITALS: BP 127/66; TEMP 98.3
--- NOTE | 2020-04-24 18:13 | P.DS ---
Providers Date of admission: 04/04/20 23:20 Expected date of discharge: 04/24/20 Attending physician: Lisa Higgins MD Consults: 04/04/20 21:54 Consult Physician Routine Consulting Provider: Meghan Camilo Consult Reason/Comments: spontaneous pneumothorax Do you want consulting provider notified?: Yes Primary care physician: Rakan Gore MD Hospital Course: Discharge Diagnosis: Tension pneumothorax status post chest tube, VATS, chest tube repositioning, and Talc pleurodesis Hypertension Insomnia Anemia Thrombocytopenia Thrombocytopenia, resolved Prior tobacco abuse-quit March 2019 History of mantle cell lymphoma and prostate cancer Hyponatremia, stable Hospital Course: Patient is a 79-year-old male with hypertension, BPH, mantle cell lymphoma, and prostate cancer who presented to the emergency room as a transfer from [place] secondary to sudden onset right chest pain or shortness of breath. She was found have a large right-sided pneumothorax with mediastinal shift to the left. He has a chest tube placed with resolution of the mediastinal shift. Initial laboratory analysis demonstrated an increased creatinine consistent with dehydration. He was admitted and CT surgery was consulted. Initially conservative management was attempted with chest tube placement. CT chest 04/05 which showed a tiny right-sided pneumothorax with emphysematous changes and multiple blebs. He failed conservative management of chest tube. He ultimately underwent a VATS on 04/10 with resection of apical blebs and mechanical pleurodesis. He had continued pneumothorax and chest tube has been readjusted. On 04/17 he was taken back to the operating room had removal of his old chest tube with placement of 2 right-sided pleural chest tubes. On 04/18 he underwent a talc pleurodesis. His pneumothorax was resolved by 04/23 and one of his chest tubes was discontinued. Chest x-ray on 04/24 showed resolution of pneumothorax and his chest tube was discontinued. Repeat chest x-ray showed completely expanded lung. He was determined stable for discharge. He will follow up with Dr. Barriga in 2-3 days and Maia cr with cardiac surgery on 04/21. He will have home health and his dressing will be changed in 48 hours. Patient seen and examined at bedside. No chest pain, SOB, nausea, or vomiting Vital signs reviewed and stable. General: non toxic, no distress, appears at stated age Derm: warm, dry Head: atraumatic, normocephalic, symmetric Eyes: EOMI, no lid lag, anicteric sclera Mouth: no lip lesion, mucus membranes moist Cardiovascular: S1S2 reg, no murmur, positive posterior tibial pulse bilateral, Lungs: CTA bilateral, no rhonchi, no rales , no accessory muscle use Abdominal: soft, nontender to palpation, no guarding, no appreciable organomegaly Ext: no gross muscle atrophy, no edema, no contractures Neuro: CN II-XI grossly intact, no focal neuro deficits Psych: Alert, oriented, appropriate affect A total of 35 minutes of time were spent preparing this complex discharge summary . Patient Condition at Discharge: Fair Plan - Discharge Summary New Discharge Prescriptions: New Ibuprofen [Motrin] 600 mg PO TID PRN #30 tab PRN Reason: Pain Continue lisinopriL [Zestril] 20 mg PO BID Discharge Medication List lisinopriL [Zestril] 20 mg PO BID 12/02/17 [History] Ibuprofen [Motrin] 600 mg PO TID PRN #30 tab 04/24/20 [Rx] Follow up Appointment(s)/Referral(s): Maia Cr NPC [Nurse Practitioner] - 05/01/20 2:00 pm (Please obtain chest xray at the hospital before appointment, then come to surgeon's office at [facility], [address] [place] [address], [address] (behind the hospital) for appointment) [facility], [NON-STAFF] - Rakan Gore MD [Primary Care Provider] - 04/26/20 2:00 pm Ambulatory/Diagnostic Orders: XR chest 2V [RAD.AMB] Time Frame: 05/01/20, Facility: [facility], Location: Rad Xray [facility] Patient Instructions/Handouts: Spontaneous Pneumothorax (DC), Video Assisted Thoracoscopic Surgery (DC) Activity/Diet/Wound Care/Special Instructions: DISCHARGE INSTRUCTIONS: 1. No driving for 2 weeks, or until physician gives their ok. 2. No lifting, pushing, or pulling more than 10 pounds for 2 weeks. The physician will advise of any restriction changes. 3. Continue pain control per as needed orders. Alternate acetaminophen (Tylenol) and ibuprofen (Motrin/Advil) for pain. 4. Continue with incentive spirometry and splinting until otherwise directed by the physician. 5. Leave chest tube dressing for 48 hours. After that, remove all dressings and shower daily. 6. Routine incision care. No powders, lotions, ointments on incisions. 7. Please call surgeon/[employer] for temp greater than 101 F or purulent drainage from incisions. For any questions or concerns please call resort manager Maia @ or Kee @ Discharge Disposition: HOME WITH HOME HEALTH SERVICES
== END 2020-04-24 14:50 | disposition home health service (06) | DRG 164 ==
LOC: EC 21:37 → 5NMEDONC 23:20 → 6NMEDSUR 04-10 07:18 → 3SCARD 04-10 16:59
PROVIDERS: ADMIT Internal Medicine; ATTEND Internal Medicine
PROC: 0B5N4ZZ Destruction of Right Pleura, Percutaneous Endoscopic Approach (ICD-10-PCS; principal; 2020-04-10 13:00)
PROC: 0BBC4ZZ Excision of Right Upper Lung Lobe, Percutaneous Endoscopic Approach (ICD-10-PCS; principal; 2020-04-10 13:00)
PROC: 0W9940Z Drainage of Right Pleural Cavity with Drainage Device, Percutaneous Endoscopic Approach (ICD-10-PCS; principal; 2020-04-10 13:00)
PROC: 0W9930Z Drainage of Right Pleural Cavity with Drainage Device, Percutaneous Approach (ICD-10-PCS; 2020-04-17)
PROC: 0WP930Z Removal of Drainage Device from Right Pleural Cavity, Percutaneous Approach (ICD-10-PCS; 2020-04-17)
PROC: 3E0L3GC Introduction of Other Therapeutic Substance into Pleural Cavity, Percutaneous Approach (ICD-10-PCS; 2020-04-18)
DX: J93.0 Spontaneous tension pneumothorax (principal); E87.1 Hypo-osmolality and hyponatremia; C83.10 Mantle cell lymphoma, unspecified site; J94.2 Hemothorax; J93.82 Other air leak; D69.6 Thrombocytopenia, unspecified; E86.0 Dehydration; G47.00 Insomnia, unspecified; Z85.46 Personal history of malignant neoplasm of prostate; J43.8 Other emphysema; R93.89 Abnormal findings on diagnostic imaging of other specified body structures; D63.8 Anemia in other chronic diseases classified elsewhere; I10 Essential (primary) hypertension; N40.0 Benign prostatic hyperplasia without lower urinary tract symptoms; K59.00 Constipation, unspecified; R13.10 Dysphagia, unspecified; Z92.3 Personal history of irradiation; T40.605A Adverse effect of unspecified narcotics, initial encounter; Z79.899 Other long term (current) drug therapy; Z80.6 Family history of leukemia; I49.1 Atrial premature depolarization; M47.812 Spondylosis without myelopathy or radiculopathy, cervical region; D72.819 Decreased white blood cell count, unspecified
CPT/HCPCS: 71045; 71046; 71250; 71260; 80048; 80053; 82728; 83540; 83550; 83930; 83935; 84300; 84443; 85025; 85027; 86850; 86900; 86901; 88305; 88307; 94640; 94760; 99284

== ENCOUNTER → 2020-05-01 | Outpatient (CLI) | payer MEDICARE ==
--- NOTE | 2020-05-01 13:34 | XR ---
EXAMINATION TYPE: XR chest 2V DATE OF EXAM: 05/01/2020 COMPARISON: 04/24/2020 HISTORY: History of previous right-sided pneumothorax. TECHNIQUE: Frontal and lateral views of the chest are obtained. FINDINGS: Scattered senescent parenchymal changes noted. Hyperinflation compatible with COPD. I do not see evidence for right-sided pneumothorax. No evidence for infiltrate. No evidence for atelectasis. Heart size is stable. Mediastinal structures are stable and grossly unremarkable. No evidence for hilar prominence. Degenerative changes dorsal spine. IMPRESSION: 1. No evidence for acute pulmonary disease.
== END | disposition home or self-care (01) ==
LOC: RADXRMAIN 13:14
PROVIDERS: ATTEND Nurse Practitioner Acute Care
DX: J93.9 Pneumothorax, unspecified (principal)
CPT/HCPCS: 71046